=== PATIENT | male | born 1950 | race Caucasian/White ===

== ENCOUNTER 2017-04-07 11:25 | Day surgery (SDC) | payer OTHER ==
[~2017-04-07] VITALS: Ht 167.6 cm; Wt 77.1 kg
[~2017-04-07 11:25] MED LIST: ACET-2267 PO; ASPI-808 PO; ASPI-983 PO; ATOR20TA66 PO; ATOR40TA70 PO; CLOP75TA28 PO; IBP200T PO; IBUP-30 PO; LISI-556 PO; LISI5TAB PO; METO-333 PO
[2017-04-07] MEDS ORDERED: HEParin (CATH LAB) 1,000 ML IV ONE (11:34)
[2017-04-07] MEDS ORDERED: NS IV 1000 ML 1,000 ML ONE (11:34)
[2017-04-07] MEDS ORDERED: NS IV 1000 ML 1,000 ML IV SCH ×3 (11:37→11:45)
[2017-04-07] MEDS ORDERED: BACITRACIN INJECTION 50,000 UNIT, SODIUM CHLORIDE 0.9% IRRIGATIO 500 ML IR ONE ×2 (11:45)
[2017-04-07 11:50] VITALS: BP 139/92
[2017-04-07 12:04] LABS: MEAN PLATELET VOLUME 9.3 FL (7.4-10.4); RED BLOOD COUNT 4.14 10^6/uL (4.35-5.85); RED CELL DISTRIBUTION WIDTH 14.3 % (10.0-14.5); WHITE BLOOD COUNT 8.6 10^3/uL (4.3-11.0)
[2017-04-07] MEDS ORDERED: ATOR40TA70 PO (12:04)
[2017-04-07] MEDS ORDERED: ceFAZolin 1,000 MG (ANCEF) VIAL ONE (12:12)
[2017-04-07 12:17] LABS: PROTHROMBIN TIME PATIENT 12.7 SEC (12.2-14.7)
[2017-04-07 12:27] LABS: ALANINE AMINOTRANSFERASE 20 U/L (0-55); ALBUMIN 4.2 GM/DL (3.2-4.5); ANION GAP 9 MMOL/L (5-14); ASPARTATE AMINO TRANSFERASE 23 U/L (5-34); BILIRUBIN,TOTAL 0.5 MG/DL (0.1-1.0); BLOOD UREA NITROGEN 15 MG/DL (7-18); BUN/CREATININE RATIO 16; CALCIUM 9.3 MG/DL (8.5-10.1); CARBON DIOXIDE 25 MMOL/L (21-32); CHLORIDE 104 MMOL/L (98-107); CHOLESTEROL 179 MG/DL (< 200); CREATININE SERUM 0.94 MG/DL (0.60-1.30); DIRECT LDL 111 MG/DL (1-129); GFR ESTIMATED > 60; GLUCOSE 81 MG/DL (70-105); POTASSIUM 3.9 MMOL/L (3.6-5.0); SODIUM 138 MMOL/L (135-145); TOTAL PROTEIN 7.6 GM/DL (6.4-8.2); TRIGLYCERIDES 234 MG/DL (<150); VLDL CHOLESTEROL 47 MG/DL (5-40)
[2017-04-07] MEDS ORDERED: diphenhydrAMINE 50 MG/ML INJ (BENADRYL) ONE (12:31)
[2017-04-07] MEDS ORDERED: fentaNYL INJECTION 100 MCG/2 ML AMP ONE (12:31)
[2017-04-07] MEDS ORDERED: MIDAZOLAM 5 MG/5 ML (VERSED) VIAL ONE (12:31)
[2017-04-07] MEDS ORDERED: NEO/POLY/BAC (NEOSPORIN) OINT 15 GM TUBE ONE (13:20)
--- NOTE | 2017-04-07 14:15 | Cardiac Procedure Note-CS/ASA ---
Pre-Procedure Note Pre-Op Procedure Note H&P Reviewed The H&P was reviewed, patient examined and no changes noted. Date H&P Reviewed: Apr 07, 2017 Time H&P Reviewed: 13:15 Conscious Sedation Pre-Proced Time Reviewed: 13:15 ASA Class: 3 Airway Mallampati Classification: ([place] appropriate class) I. II. III, IV Lungs Heart ASA score ASA 1: a normal healthy patient ASA 2: a patient with a mild systemic disease (mid diabetes, controlled hypertension, obesity ASA 3: a patient with a severe systemic disease that limits activity (angina , COPD, prior Myocardial infarction) ASA 4: a patient with an incapacitating disease that is a constant threat to life (CHF, renal failure) ASA 5: a moribund patient not expected to survive 24 hrs. (ruptured aneurysm) ASA 6: a declared brain patient whose organs are being harvested. For emergent operations, add the letter E after the classification Grade 2 Sedation Plan: Analgesia, Amnesia, Plan communicated to team members, Discussed options with patient/fam, Discussed risks with patient/fam Note The patient is an appropriate candidate to undergo the planned procedure, sedation, and anesthesia. The patient immediately re-assessed prior to indication. YAHIR JARRELL MD FACP FAC CCDS Apr 07, 2017 14:15
[2017-04-07] MEDS ORDERED: CEFU500T63 PO (14:17)
--- NOTE | 2017-04-07 14:19 | Discharge Inst-Post Device ---
Discharge Inst-Post Device Follow up/Plan F/u with Dr Painting on Monday04/10/17 Heart Healthy Diet Activity as tolerated. Leave dressing on until follow up at the office. YAHIR PAINTING MD FACP FAC CCDS Apr 07, 2017 14:19
[2017-04-07 14:35] VITALS: BP 121/74
--- NOTE | 2017-04-07 14:38 | Diagnostic Imaging Report ---
INDICATION: Status post pulse generator change. Comparison with 06/22/2015. FINDINGS: Portable chest shows the lungs to be well aerated. There is no pneumothorax or pleural effusions. No infiltrates. No pulmonary edema. The heart is not enlarged. ICD pacer is present on the left. Generator appears to be in good position. Leads appear intact. IMPRESSION: Normal-appearing post pulse generator replacement chest. Dictated by: Dictated on workstation # [id number]
[2017-04-07 14:50] VITALS: BP 128/83
[2017-04-07 15:00] VITALS: BP 137/71
[2017-04-07 15:20] VITALS: BP 137/71
--- NOTE | 2017-04-11 10:03 | OPERATIVE REPORT ---
DATE OF SERVICE: 04/07/2017 PREOPERATIVE DIAGNOSIS: Single chamber ICD at elective replacement indicator. POSTOPERATIVE DIAGNOSIS: Single chamber ICD at elective replacement indicator. PROCEDURE: Single chamber ICD generator replacement. ESTIMATED BLOOD LOSS: Less than 5 mL. The patient was brought to the cardiac catheterization laboratory in the fasting state. Informed consent had been obtained. The left prepectoral area is the site of the device implantation. This was prepared and draped in the usual sterile fashion. A guiding fluoroscopic image was taken. 1% Lidocaine was used for local anesthesia. We used sharp and blunt dissection to open the pocket along the previous scar. The pocket was opened. The device was removed and detached from the leads. The leads were retested. A new device was attached. The device and the leads were placed back in the pocket after the pocket had been thoroughly irrigated with an antibiotic solution. The pocket was closed in two layers using 3.0 Vicryl. The right ventricular lead impedance is 570 ohms. R wave amplitude is greater than 20 millivolts. Ventricular capture threshold is 1.7 volts and 0.5 milliseconds. The device was reinterrogated after pocket closure and was found to be functioning normally. The device removed is Medtronic product number [id number] with serial number [id number]. The device implanted is Medtronic model [id number] with serial number [id number]. Job ID: [id number] DocumentID: [id number] Dictated Date: 04/07/2017 14:04:43 Truant Officer Date: 04/11/2017 09:45:49 Dictated By: YAHIR JARRELL MD, MA, FACP, FACC,
== END 2017-04-07 15:20 | disposition home or self-care (01) ==
LOC: CATH 11:25 → ICU 14:35 → CATH 15:20
PROVIDERS: ATTEND Internal Medicine Cardiovascular Disease
DX: Z45.010 Encounter for checking and testing of cardiac pacemaker pulse generator [battery] (principal); I25.5 Ischemic cardiomyopathy; I25.10 Atherosclerotic heart disease of native coronary artery without angina pectoris; I70.213 Atherosclerosis of native arteries of extremities with intermittent claudication, bilateral legs; R06.09 Other forms of dyspnea; I71.4 Abdominal aortic aneurysm, without rupture; E78.5 Hyperlipidemia, unspecified; Z91.19 Patient's noncompliance with other medical treatment and regimen; Z95.1 Presence of aortocoronary bypass graft; Z72.0 Tobacco use; Z79.899 Other long term (current) drug therapy
CPT/HCPCS: 33262; 36415; 71010; 80053; 80061; 85027; 85610; 85730; 87081; 93005

== ENCOUNTER 2019-08-20 07:16 | Day surgery (SDC) | payer MEDICARE ==
[2019-08-20] VITALS (13 sets, daily range): BP systolic 109–140; BP diastolic 63–83
[~2019-08-20] VITALS: Ht 167 cm; Wt 76.0 kg
[~2019-08-20 07:16] MED LIST changes: +CEFU500T63 PO
[2019-08-20] MEDS ORDERED: LIDOCAINE 1% INJ 20 ML 20 ML VIAL ONE (07:30)
[2019-08-20] MEDS ORDERED: HEParin 1000 UNIT/ML (10ML VIAL) FOR BOLUS ONE (07:30)
[2019-08-20] MEDS ORDERED: NS IV 1000 ML 3,000 ML ONE (07:30)
[2019-08-20] MEDS ORDERED: NS IV 1000 ML 1,000 ML IV SCH ×2 (07:30→11:33)
[2019-08-20 07:52] LABS: HEMOGLOBIN 13.4 G/DL (13.3-17.7); MEAN PLATELET VOLUME 9.5 FL (7.4-10.4); RED CELL DISTRIBUTION WIDTH 14.4 % (10.0-14.5); WHITE BLOOD COUNT 6.3 10^3/uL (4.3-11.0)
[2019-08-20] MEDS ORDERED: METO-333 PO (08:07)
[2019-08-20] MEDS ORDERED: CLOP75TA69 PO (08:07)
[2019-08-20] MEDS ORDERED: ASPI-999 PO (08:07)
[2019-08-20] MEDS ORDERED: LISI2.5T PO (08:07)
[2019-08-20 08:10] LABS: INR 0.9 (0.8-1.4); PROTHROMBIN TIME PATIENT 12.9 SEC (12.2-14.7)
[2019-08-20] MEDS ORDERED: IBUP-2055 PO (08:12)
--- NOTE | 2019-08-20 08:13 | NUR ---
SPOKE WITH THE PT (HE HAD HIS HOME MEDS WITH HIM) TO COMPLETE THE MED REC. PT (ALONG WITH HIS ) WERE ABLE TO TELL ME HOW/WHEN HE TAKES EACH MED AND IT MATCHED WITH THE DIRECTIONS ON THE BOTTLES. THE FOLLOWING MEDS WERE FILLED ON 08-16-2019 AT [facility]: ASPIRIN #90/90DS LISINOPRIL #90/90DS CLOPIDOGREL #90/90DS ATORVASTATIN #90/90DS 06-12-2019 METOPROLOL #90/90DS OTC MEDS: TYLENOL PRN IBUPROFEN PRN
[2019-08-20] MEDS ORDERED: FLU QUADRIvalent (5+ YOA) 2019-2020 (AFLURIA) 0.5 ML IM ONE (08:15)
[2019-08-20 08:23] LABS: ALANINE AMINOTRANSFERASE 19 U/L (0-55); ALBUMIN 4.3 GM/DL (3.2-4.5); ALKALINE PHOSPHATASE 69 U/L (40-136); BILIRUBIN,TOTAL 0.3 MG/DL (0.1-1.0); BUN/CREATININE RATIO 14; CALCIUM 9.4 MG/DL (8.5-10.1); CARBON DIOXIDE 22 MMOL/L (21-32); CHLORIDE 106 MMOL/L (98-107); CHOLESTEROL 199 MG/DL (< 200); CREATININE SERUM 0.96 MG/DL (0.60-1.30); GFR ESTIMATED > 60; GLUCOSE 99 MG/DL (70-105); HDL CHOLESTEROL 34 MG/DL (40-60); POTASSIUM 4.4 MMOL/L (3.6-5.0); SODIUM 140 MMOL/L (135-145); TOTAL PROTEIN 7.3 GM/DL (6.4-8.2); TRIGLYCERIDES 207 MG/DL (<150); VLDL CHOLESTEROL 41 MG/DL (5-40)
[2019-08-20] MEDS ORDERED: MIDAZOLAM 5 MG/5 ML (VERSED) VIAL ONE (10:01)
[2019-08-20] MEDS ORDERED: fentaNYL INJECTION 100 MCG/2 ML AMP ONE ×2 (10:01→13:49)
[2019-08-20] MEDS ORDERED: EPTIFIBATIDE BOLUS 20 ML IV ONE (10:50)
[2019-08-20] MEDS ORDERED: NITRO DRIP 25000 MCG/D5W 250 ML IV ONE (10:59)
[2019-08-20] MEDS ORDERED: ASPIRIN 81 MG CHEW (CHILDREN'S ASA) ONE (11:13)
[2019-08-20] MEDS ORDERED: CLOPIDOGREL 75 MG (PLAVIX) TABLET ONE (11:13)
--- NOTE | 2019-08-20 11:33 | Cardiac Procedure Note-CS/ASA ---
Pre-Procedure Note Pre-Op Procedure Note H&P Reviewed The H&P was reviewed, patient examined and no changes noted. Date H&P Reviewed: Aug 20, 2019 Time H&P Reviewed: 10:30 Conscious Sedation Pre-Proced Time 10:30 ASA Score 3 For ASA 3 and 4: Consider anesthesia and medical clearance. Also, for patients with a history of failed moderate sedation consider anesthesia. Airway Lungs Heart ASA score ASA 1: a normal healthy patient ASA 2: a patient with a mild systemic disease (mid diabetes, controlled hypertension, obesity ASA 3: a patient with a severe systemic disease that limits activity (angina, COPD, prior Myocardial infarction) ASA 4: a patient with an incapacitating disease that is a constant threat to life (CHF, renal failure) ASA 5: a moribund patient not expected to survive 24 hrs. (ruptured aneurysm) ASA 6: a declared brain- patient whose organs are being harvested. For emergent operations, add the letter E after the classification Mallampati Classification Grade 2 Sedation Plan Analgesia, Amnesia, Plan communicated to team members, Discussed options with patient/fam, Discussed risks with patient/fam The patient is an appropriate candidate to undergo the planned procedure, sedation, and anesthesia. The patient immediately re-assessed prior to indication. YAHIR JARRELL MD FACP FAC CCDS Aug 20, 2019 11:33 POS
[2019-08-20] MEDS ORDERED: PATIENT MAY USE OWN MEDS, ALL PO SCH (11:45)
[2019-08-20] MEDS ORDERED: NON-FORMULARY MEDICATION 1 EA EA (Acetaminophen (Tylenol Extra Strength) 1,000 MG) PO PRN (11:45)
[2019-08-20] MEDS ORDERED: ACETAMINOPHEN 500 MG TAB (TYLENOL) PO PRN (12:30)
--- NOTE | 2019-08-20 13:32 | CARDIAC CATHETERIZATION ---
DATE OF SERVICE: 08/20/2019 CARDIAC CATHETERIZATION AND CORONARY INTERVENTION REPORT The patient is a 69-year-old man, who is known to have coronary artery disease. He has had stenting of the left anterior descending and the left circumflex artery several years ago. He has been experiencing symptoms consistent with crescendo exertional angina. Cardiac catheterization was carried out today after having obtained an informed consent for cardiac catheterization and possible ad hoc coronary intervention. DESCRIPTION OF PROCEDURE: He was brought to the cardiac catheterization laboratory in a fasting state. Right groin was prepared and draped in the usual sterile fashion. Lidocaine 1% for local anesthesia. Modified Seldinger technique was used to advance a 5-Ukrainian sheath in the right femoral artery, 5-Ukrainian JL4 catheter was used for left coronary angiography and 5-Ukrainian JR4 catheter for right coronary angiography, 5-Ukrainian pigtail catheter was used for left heart catheterization and left ventricular angiography. Subsequently, percutaneous intervention was carried out in the left anterior descending artery, which was exhibiting multiple up to 90% stenosis within a stented segment of the proximal and mid left anterior descending. PERCUTANEOUS INTERVENTION OF THE LEFT ANTERIOR DESCENDING ARTERY: The sheath was exchanged over a wire for a 6-Ukrainian sheath. We used a 6-Ukrainian JL4 guide catheter to engage the left coronary artery. We advanced a BMW wire across the lesion in the proximal and mid left anterior descending and the tip was placed in the distal vessel. We carried out balloon angioplasty within the stented segment of the left anterior descending, which was exhibiting multiple up to 90% stenoses. We used an Emerge 3.0 mm x 20 mm balloon. Balloon inflations were carried out up to 18 atmospheres. Subsequent angiography revealed less than 20% residual stenosis. Flow throughout the vessel is normal. The patient tolerated the procedure well. Angioplasty equipment was removed. Angiography of the right femoral artery had been carried out through the sheath at the beginning of the procedure. At the end of the procedure, the sheath was sutured in place and the patient was transferred to the floor for manual sheath removal. The angiogram through the sheath does exhibit probable chronic occlusion of the right superficial femoral at its ostium. HEMODYNAMICS: Left ventricular end-diastolic pressure following coronary angiography was 25 mmHg. There is no significant pressure gradient on pullback across the aortic valve. Ascending aortic pressure was 135/70 with a mean of 98 mmHg. CORONARY ANGIOGRAPHY: Diffuse coronary calcification is seen. Left main coronary artery does not exhibit significant obstructive disease. There is a long stented segment of the proximal and mid left anterior descending. This is known to be Taxus 2.75 x 28 mm stent within which was later placed a Promus 2.25 x 12 mm stent for in-stent restenosis. These procedures were carried out several years ago. Within the standard segment, there was 90% stenosis through which successful balloon angioplasty was carried out, as described above, with reduction of stenosis to less than 20% residual. The distal edge of the left anterior descending artery has multiple plaques of up to approximately 30% to 40%. The left circumflex artery consists mainly of the first obtuse marginal branch and this contains a patent stent in its proximal portion. The stent is known to be Promus 2.25 x 16 mm stent that was placed several years ago. The right coronary artery is dominant and has mild diffuse plaque. LEFT VENTRICULAR ANGIOGRAPHY: Left ventricular angiography was carried out in the right anterior oblique projection. The global left ventricular systolic function is markedly impaired. There is an obvious anterobasal and anterolateral hypokinesis. There is posterobasal, diaphragmatic and apical akinesis. CONCLUSIONS: 1. Coronary artery disease primarily consisting of 90% stenoses within a stented segment of the proximal and mid left anterior descending to which successful balloon angioplasty was carried out with the reduction of stenosis to less than 20%. 2. Patent stent is seen in the proximal portion of the left circumflex. The right coronary artery is dominant and has mild diffuse disease. 3. Marked impairment of global left ventricular systolic function with an ejection fraction of approximately 15% and with posterobasal diaphragmatic and apical akinesis. 4. Elevated left ventricular end-diastolic pressure. DISCUSSION AND RECOMMENDATIONS: Dual antiplatelet therapy is being continued. Treatment for chronic ischemic cardiomyopathy is being continued. He has been hospitalized for observation after today's interventional procedure. Risk factor modification has been reviewed with him. Job ID: [id number] DocumentID: [id number] Dictated Date: 08/20/2019 11:28:51 Office Cleaner Date: 08/20/2019 13:31:10 Dictated By: YAHIR JARRELL MD, MA, FACP, FACC, MTDD
[2019-08-20] MEDS ORDERED: ATROPINE INJ 0.4 MG/ML SDV ONE (13:49)
[2019-08-20] MEDS ORDERED: meTOprolol TARTRATE 25 MG (LOPRESSOR) TABLET PO SCH ×2 (21:00)
[2019-08-21 01:13] VITALS: BP 113/64
[2019-08-21 03:32] LABS: HEMOGLOBIN 11.9 G/DL (13.3-17.7); MEAN PLATELET VOLUME 9.6 FL (7.4-10.4); RED CELL DISTRIBUTION WIDTH 14.8 % (10.0-14.5); WHITE BLOOD COUNT 5.5 10^3/uL (4.3-11.0)
[2019-08-21 03:54] LABS: BUN/CREATININE RATIO 14; CALCIUM 8.5 MG/DL (8.5-10.1); CARBON DIOXIDE 19 MMOL/L (21-32); CHLORIDE 111 MMOL/L (98-107); GFR ESTIMATED > 60; GLUCOSE 101 MG/DL (70-105); POTASSIUM 4.2 MMOL/L (3.6-5.0); SODIUM 140 MMOL/L (135-145)
[2019-08-21 05:44] VITALS: BP 105/86
[2019-08-21 08:00] VITALS: BP 117/55
--- NOTE | 2019-08-21 08:36 | NUR ---
Pt chooses to take his morning medications when he gets home. States that's easier for him so he knows what he has taken for the day.
--- NOTE | 2019-08-21 08:41 | Discharge Inst-Cardiology ---
Discharge Inst-Cardiac Discharge Medications Continued Medications: Acetaminophen (Tylenol Extra Strength) 500 Mg Tablet 1000 MG PO Q6H PRN for PAIN TAKES 2 (500MG) TABLETS Aspirin (Aspirin) 81 Mg Tab.chew 81 MG PO DAILY, TAB Atorvastatin Calcium (Atorvastatin Calcium) 40 Mg Tablet 40 MG PO DAILY, TAB Clopidogrel Bisulfate (Plavix) 75 Mg Tablet 75 MG PO DAILY, TAB Lisinopril (Lisinopril) 2.5 Mg Tablet 2.5 MG PO DAILY, TAB Metoprolol Tartrate (Metoprolol Tartrate) 25 Mg Tablet 12.5 MG PO BID, TAB TAKES HALF OF A 25MG TAB TO EQUAL 12.5MG TWICE DAILY Discontinued Medications: Ibuprofen (Ibuprofen) 200 Mg Tablet 400 MG PO Q8H PRN for PAIN-MILD (1-4), TAB Patient Instructions Patient Instructions: F/u with Dr Painting in 6 weeks Orders-Post D/C & Referrals Pneu Vac Indicated: Yes YAHIR PAINTING MD FACP FAC CCDS Aug 21, 2019 08:41 POS
--- NOTE | 2019-08-21 08:42 | Discharge Inst-Post CATH ---
Discharge Inst-CATH/EP Post Cardiac Cath/EP D/C Inst Follow Up/Plan F/u with Dr Painting in 6 weeks No smoking ACTIVITY * Go Home directly and rest. * Limit activity of the leg (or wrist if it was used) for 7 days including aerobics, swimming, jogging, bicycling, etc. * Restrict stair-climbing for 7 days if possible, if not, climb up with your non-cath leg, then bring together on the same step. * Avoid lifting, pushing, pulling or excessive movement of the affected extremity for 7 days. * Customary sexual activity may be resumed after 2 days-use caution not to use a position that strains or causes pain to the affected extremity. * No driving for 24 hours. * NO SMOKING. * Avoid straining for bowel movements for 7 days. * Gentle walking on level ground is allowed. * Returning to work will depend on the type of procedure and the results. Your doctor will discuss this with you. CALL YOUR DOCTOR FOR ANY OF THE FOLLOWING: *If bleeding from the puncture site occurs- Apply gentle pressure to site with clean cloth and call your doctor or EMS. * If a knot or lump forms under the skin, increases in size, or causes pain. * If bruising appears to be worsening or moving further down your leg instead of disappearing. * Temperature above 101 F. CARE OF YOUR GROIN INCISION; * Bruising or purple discoloration of the skin near the puncture site is common. * You may shower only, no bathtub bathing for 5 days. Be careful to avoid slipping as your leg may feel stiff. * If a closure device was used on your femoral artery, please see the attached guide regarding care of the device and your leg. * Leave dressing on FOR 24 hours. CARE OF YOUR WRIST INCISION; * Bruising or purple discoloration of the skin near the puncture site is common. * You may shower. * DO NOT submerge wrist. * Leave dressing on FOR 24 hours. Y[address]IR PAINTING MD [facility] CCDS Aug 21, 2019 08:42 POS
--- NOTE | 2019-08-21 08:52 | Progress Note - Cardiology ---
Cardiology SOAP Progress Note Subjective: No cp or palp or syncope or groin discomfort No shortness of breath at rest No leg discoloration or discomfort. Does have chronic leg discomfort with mild to mod exertion that has not changed in the recent past Feels well and wishes to go home Objective: I&O/Vital Signs 08/21/19 08/21/19 08/21/19 08/21/19 00:00 00:51 01:13 05:44 Temp 37.6 37.0 Pulse 64 60 86 Resp 16 18 B/P (MAP) 113/64 (80) 105/86 (92) Pulse Ox 97 96 O2 Delivery Room Air Room Air 08/21/19 07:00 Pulse 63 Weight (Pounds): 170 Weight (Ounces): 0.0 Weight (Calculated Kilograms): 77.943892 Groin site without hematoma: Yes Condition: other (No leg discoloration or any signs of ischemia, pulses chronically detectable only with Doppler) Bruising: mild bruising Constitutional: AAO x 3, well-developed, well-nourished Respiratory: No accessory muscle use; other (good bilat air entry, prolonged e xp phase) Cardiovascular: regular rate-rhythm, S1 and S2, systolic murmur (faint DEXTER at card base) Gastrointestional: No tender; soft; No guarding, No rebound; audible bowel sounds Extremities: No clubbing, No cyanosis, No significant edema Neurologic/Psychiatric: oriented x 3, other (moves all limbs equally) Skin: No rash on exposed areas, No ulcerations on exposed areas Results/Procedures: Labs Laboratory Tests 08/20/19 12:55: Activated Partial Thromboplast Time 63H 08/21/19 03:05: White Blood Count 5.5, Red Blood Count 3.59L, Hemoglobin 11.9L, Hematocrit 36L, Mean Corpuscular Volume 99, Mean Corpuscular Hemoglobin 33, Mean Corpuscular Hemoglobin Concent 33, Red Cell Distribution Width 14.8H, Platelet Count 168, Mean Platelet Volume 9.6, Sodium Level 140, Potassium Level 4.2, Chloride Level 111H, Carbon Dioxide Level 19L, Anion Gap 10, Blood Urea Nitrogen 14, Creatinine 1.00, Estimat Glomerular Filtration Rate > 60, BUN/Creatinine Ratio 14, Glucose Level 101, Calcium Level 8.5 Laboratory Tests 08/20/19 07:40 08/21/19 03:05 A/P: Assessment: Angina pectoris, resolved after LAD intervention on 08/20/19 CAD. Last card cath on 08/20/19 showed coronary artery disease primarily consisting of 90% stenoses within a stented segment (known to be Taxus 2.75x28 and Promus 2.25x12) of the proximal and mid left anterior descending to which successful balloon angioplasty was carried out with a 3 mm balloon with reduction of stenosis to less than 20%; patent stent in the proximal portion of the left circumflex (known to be Promus 2.25x16). The right coronary artery is dominant and has mild diffuse disease, marked impairment of global left scott tricular systolic function with an ejection fraction of approximately 15% and with posterobasal diaphragmatic and apical akinesis, elevated left ventricular end-diastolic pressure Ischemic cm with EF approx 15% per cardiac cath of 08-20-19 Echocardiogram of June 2015 showed LVEF 35%. Distal septal and apical akinesis. Mild MR and TR. No evidence of significant valvular stenosis. PASP approx 45mmHg. S/p ICD placement by Dr Lynn in 2007 for SCD prophylaxis - which has reached SUSANA on interrogation carried out on 04-05-2017. Pulse gen change on 04/07/17. Device functioning normally on interrogation of 10/19/17 Carotid u/s of July 2016 showed approx 50% R ICA stenosis; less than 40% L ICA stenosis Chronic continuing tobacco use - cessation advised HLD - statin therapy Bilateral leg claudication, more on right. Incidentally noted, chronic, total occlusion of proximal R SFA at time of card cath of 08/20/19 PAD for which he refuses any further w/u or treatment. 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 He refuses (has been refusing for years). States will think about it * We had a long and detailed discussion regarding abstinence from tobacco and the importance or med compliance * We again advised f/u for device interrogation * He understands all of the above and states will try to comply YAHIR JARRELL MD FACP FAC CCDS Aug 21, 2019 08:52 POS
[2019-08-21] MEDS ORDERED: NON-FORMULARY MEDICATION 1 EA EA (Lisinopril 2.5 MG) PO SCH (09:00)
[2019-08-21] MEDS ORDERED: lisINopril 5 MG (PRINIVIL) TABLET PO SCH (09:00)
[2019-08-21] MEDS ORDERED: LISINOPRIL 2.5 MG TABLET PO SCH (09:00)
[2019-08-21] MEDS ORDERED: CLOPIDOGREL 75 MG (PLAVIX) TABLET PO SCH (09:00)
[2019-08-21] MEDS ORDERED: ASPIRIN 81 MG CHEW (CHILDREN'S ASA) PO SCH (09:00)
== END 2019-08-21 09:45 | disposition home or self-care (01) ==
LOC: CATH 07:16 → ICU 11:48 → CATH 08-21 09:45
PROVIDERS: ATTEND Internal Medicine Cardiovascular Disease
DX: I25.10 Atherosclerotic heart disease of native coronary artery without angina pectoris (principal); I70.213 Atherosclerosis of native arteries of extremities with intermittent claudication, bilateral legs; I25.5 Ischemic cardiomyopathy; I77.9 Disorder of arteries and arterioles, unspecified; I73.9 Peripheral vascular disease, unspecified; I25.2 Old myocardial infarction; E78.00 Pure hypercholesterolemia, unspecified; F17.210 Nicotine dependence, cigarettes, uncomplicated; Z95.1 Presence of aortocoronary bypass graft; Z91.14 Patient's other noncompliance with medication regimen; Z79.02 Long term (current) use of antithrombotics/antiplatelets; Z79.82 Long term (current) use of aspirin; Z79.899 Other long term (current) drug therapy; Z82.49 Family history of ischemic heart disease and other diseases of the circulatory system
CPT/HCPCS: 36415; 80048; 80053; 80061; 85027; 85610; 85730; 87081; 93005; 93458

== ENCOUNTER → 2021-02-25 | Outpatient (CLI) | payer MEDICARE ==
[~2021-02-25] MED LIST changes: +ASPI-1238 PO; -ASPI-983 PO; +ASPI-999 PO; +CLOP75TA69 PO; +IBUP-2473 PO; -LISI-556 PO; +LISI-729 PO; +LISI2.5T PO
== END ==
LOC: CARD 12:06
PROVIDERS: ATTEND Nurse Practitioner Family
DX: I51.7 Cardiomegaly (principal); I34.0 Nonrheumatic mitral (valve) insufficiency
CPT/HCPCS: 93306

== ENCOUNTER → 2021-03-02 | Outpatient (CLI) | payer MEDICARE ==
[~2021-03-02] VITALS: Ht 167 cm; Wt 77.0 kg
[~2021-03-02] MED LIST changes: +CATHETER FLUSH 10 ML SYR IV PRN; +REGADENOSON 0.4 MG/5 ML SYR (LEXISCAN) IV ONE
[2021-03-02 09:28] VITALS: BP 158/88
--- NOTE | 2021-03-04 10:57 | STRESS TEST ---
DATE OF SERVICE: 03/02/2021 RESTING AND POST REGADENOSON TECHNETIUM-99M TETROFOSMIN SPECT CT IMAGING ORDERING PHYSICIAN: Elisabeth Ayala APRN PRIMARY PHYSICIAN: Dr. Allred. CLINICAL DIAGNOSIS: Shortness of breath. Baseline images were carried out after injection of 10.97 mCi of technetium-99m Tetrofosmin. This was followed by 0.4 mg Regadenoson and 31.5 mCi of technetium-99m Tetrofosmin for stress imaging. The electrocardiogram showed sinus rhythm with diffuse, nonspecific ST and T-wave abnormality. There is evidence of anteroseptal myocardial infarction and lateral wall myocardial infarction on the electrocardiogram. The electrocardiogram did not change significantly with regadenoson infusion. He noted some shortness of breath and shooting discomfort in the chest, which came with the regadenoson infusion and resolved in less than a minute. Review of images at rest and following stress indicates a predominantly fixed tarun-apical and inferolateral perfusion defect. Gated images show tarun-apical and inferolateral akinesis and global hypokinesis. Left ventricular ejection fraction is calculated to be 21%. Left ventricular end diastolic volume is 246 mL. TID is absent (1.01). CONCLUSIONS: 1. Dilated ischemic cardiomyopathy with left ventricular ejection fraction of 21%. 2. Tarun-apical and inferolateral myocardial infarction with minimal boin-infarct ischemia. 3. Marked cardiomegaly. 4. Inferolateral and tarun-apical akinesis and global hypokinesis. Job ID: [id number] DocumentID: [id number] Dictated Date: 03/04/2021 09:48:20 Digital Solutions Architect Date: 03/04/2021 10:57:18 Dictated By: YAHIR JARRELL MD, MA, FACP, FACC,
== END ==
LOC: CARD 08:00
PROVIDERS: ATTEND Nurse Practitioner Family
DX: R06.09 Other forms of dyspnea (principal)
CPT/HCPCS: 78452; 93017; A9502

== ENCOUNTER → 2022-06-14 | Outpatient (CLI) | payer MEDICARE ==
[~2022-06-14] MED LIST changes: -CATHETER FLUSH 10 ML SYR IV PRN; -LISI-729 PO; -LISI2.5T PO; +LISI2.5T13 PO; +LISI5TAB20 PO; -REGADENOSON 0.4 MG/5 ML SYR (LEXISCAN) IV ONE
--- NOTE | 2022-06-14 19:30 | Diagnostic Imaging Report ---
INDICATION: Abdominal aortic aneurysm. The proximal abdominal aorta measures 1.6 cm AP x 2.7 cm transverse. Midabdominal aorta measures 3.5 cm AP x 4.0 cm transverse. The distal abdominal aorta measures 4.3 cm AP x 4.6 cm transverse. Right iliac measures 1.1 cm in diameter and the left iliac measures 1.3 cm in diameter. IMPRESSION: Abdominal aortic aneurysm, increased in size when compared with the prior CT angiogram of the abdomen and pelvis performed on 09/09/2015. This now measures approximately 4.3 cm AP diameter compared with 3.2 cm on prior exam. Dictated by: Dictated on workstation # [id number]
== END ==
LOC: RAD 09:06
PROVIDERS: ATTEND Internal Medicine Cardiovascular Disease
DX: I71.40 Abdominal aortic aneurysm, without rupture, unspecified (principal); I50.22 Chronic systolic (congestive) heart failure
CPT/HCPCS: 76775; C8929; 93306

== ENCOUNTER 2022-08-27 23:24 | Inpatient (IN) | payer MEDICARE ==
[~2022-08-27] VITALS: Ht 167.7 cm; Wt 69.4 kg
[~2022-08-27 23:24] MED LIST changes: +CLOP-31 PO; -CLOP75TA69 PO
[2022-08-27 23:38] LABS: BASOPHILS % (AUTO) 0 % (0-10); EOSINOPHILS # (AUTO) 0.2 10^3/uL (0.0-0.3); EOSINOPHILS % (AUTO) 2 % (0-10); HEMATOCRIT 35 % (40-54); HEMOGLOBIN 11.8 g/dL (13.3-17.7); LYMPHOCYTES # (AUTO) 2.3 10^3/uL (1.0-4.0); LYMPHOCYTES % (AUTO) 28 % (12-44); MEAN CORPUSCULAR HEMOGLOBIN 34 pg (25-34); MEAN CORPUSCULAR HGB CONC 33 g/dL (32-36); MEAN CORPUSCULAR VOLUME 101 fL (80-99); MEAN PLATELET VOLUME 9.4 fL (9.0-12.2); MONOCYTES # (AUTO) 0.5 10^3/uL (0.0-1.0); MONOCYTES % (AUTO) 6 % (0-12); NEUTROPHILS # (AUTO) 5.5 10^3/uL (1.8-7.8); NEUTROPHILS % (AUTO) 64 % (42-75); PLATELET COUNT 160 10^3/uL (130-400); WHITE BLOOD COUNT 8.5 10^3/uL (4.3-11.0)
--- NOTE | 2022-08-27 23:44 | ED Respiratory ---
General Chief Complaint: Respiratory Problems Stated Complaint: SOB Source: patient (POOR HISTORIAN) History of Present Illness Date Seen by Provider: Aug 27, 2022 Time Seen by Provider: 23:26 Initial Comments PT ARRIVES VIA [facility] FROM HOME C/O SHORTNESS OF BREATH X 4-5 DAYS C/O NON-PRODUCTIVE COUGH X 4-5 DAYS + SWEATS TONIGHT--DID NOT CHECK TEMP DOES NOT THINK HE HAS HAD FEVER NO CHEST PAIN NO SWELLING IN LEGS/FEET OR PAIN IN CALVES NO NAUSEA/VOMITING NO PALPITATIONS NO DIZZINESS OR SYNCOPE PT DENIES ANY HISTORY OF COPD OR HOME O2 OR INHALER OR NEBULIZER USE PT SMOKES 1 PPD PT HAD HAD "A COUPLE " OF DRINKS TODAY DENIES DRUG USE PT HAS HISTORY OF CAD WITH STENTS--HE DOES NOT KNOW HOW MANY STENTS HE HAS HAD. HE ALSO HAS HISTORY OF CARDIOMYOPATHY WITH DEFIBRILLATOR IN PLACE. HE IS NOT COVID OR FLU VACCINATED EMS REPORT O2 SAT 77% ON THEIR ARRIVAL AT THE SCENE, THEY GAVE 20 MG DEXAMETHASONE AND DUONEB NEBULIZER TREATMENT PRIOR TO ARRIVAL PCP: DR. MONTERO AVID EDITOR: DR. JARRELL Allergies and Home Medications Allergies Coded Allergies: NKANo Known Allergies (Verified Allergy, Unknown, 07/15/07) Uncoded Allergies: NKDA (Allergy, Mild, 07/15/07) Patient Home Medication List Home Medication List Reviewed: Yes Acetaminophen (Tylenol Extra Strength) 500 Mg Tablet, 1,000 MG PO Q6H PRN for PAIN, (Reported) Entered as Reported by: ASHISH HARTMAN on 06/22/15 1359 Albuterol Sulfate (Ventolin Hfa) 90 Mcg Hfa.aer.ad, 1 INHALER INH Q2HR PRN for DYSPNEA Prescribed by: STEVEN MONTERO on 08/29/22 0852 Amoxicillin (Amoxicillin) 500 Mg Tablet, 500 MG PO TID Prescribed by: STEVEN MONTERO on 08/29/22 0848 Aspirin (Aspirin) 81 Mg Tab.chew, 81 MG PO DAILY, (Reported) Entered as Reported by: MARCI MURRY on 08/20/19 0807 Atorvastatin Calcium (Atorvastatin Calcium) 40 Mg Tablet, 40 MG PO DAILY, (Reported) Entered as Reported by: JERRELL HOLLEY on 04/07/17 1204 Clopidogrel Bisulfate (Plavix) 75 Mg Tablet, 75 MG PO DAILY, (Reported) Entered as Reported by: MARCI MURRY on 08/20/19806 Furosemide (Furosemide) 40 Mg Tablet, 80 MG PO DAILY Prescribed by: STEVEN MONTERO on 08/29/22847 Lactobacillus Acidophilus (Acidophilus) 1 Each Capsule, 1 EACH PO BID Prescribed by: STEVEN MONTERO on 08/29/22847 Lisinopril (Lisinopril) 2.5 Mg Tablet, 2.5 MG PO DAILY, (Reported) Entered as Reported by: MARCI MURRY on 08/20/19806 Metoprolol Tartrate (Metoprolol Tartrate) 25 Mg Tablet, 12.5 MG PO BID, (Reported) Entered as Reported by: MARCI MURRY on 08/20/19806 Potassium Chloride (Potassium Chloride) 10 Meq Tab.er.prt, 10 MEQ PO DAILY Prescribed by: STEVEN MONTERO on 08/29/22847 Prednisone (Prednisone) 20 Mg Tab, 40 MG PO DAILY@0700 Prescribed by: STEVEN MONTERO on 08/29/22847 Spironolactone (Spironolactone) 25 Mg Tablet, 25 MG PO DAILY Prescribed by: STEVEN MONTERO on 08/29/22847 Review of Systems Review of Systems Constitutional: see HPI, diaphoresis EENTM: no symptoms reported Respiratory: see HPI, cough, short of breath Cardiovascular: no symptoms reported Gastrointestinal: no symptoms reported Genitourinary: no symptoms reported Musculoskeletal: no symptoms reported Skin: no symptoms reported Psychiatric/Neurological: No Symptoms Reported Hematologic/Lymphatic: No Symptoms Reported Immunological/Allergic: no symptoms reported Past Gnvrezu-Nfvivz-Liffzj Hx Patient Social History Tobacco Use?: Yes Tobacco type used: Cigarettes Smoking Status: Current Everyday Smoker Smokeless Tobacco Frequency: Never a User Use of E-Cig and/or Vaping [place]: Never a User Substance use?: No Alcohol Use?: Yes Alcohol type: Hard Liquor Alcohol Frequency: Daily Immunizations Up To Date Tetanus Booster (TDap): More than 5yrs Past Medical History Surgeries: Yes Cardiac, Coronary Stent, Defibrillator, Orthopedic Respiratory: No Currently Using CPAP: No Currently Using BIPAP: No Cardiac: Yes (EF 15% ON CATH 08/2019; DEFIBRILLATOR;STENTS/ANGIOPLASTY;NSTEMI 2014;) Cardiomyopathy, Coronary Artery Disease, Heart Attack, High Cholesterol, Hypertension Neurological: No Reproductive Disorders: No Sexually Transmitted Disease: No HIV/AIDS: No Genitourinary: No Gastrointestinal: No Musculoskeletal: No Endocrine: No HEENT: No Loss of Vision: Denies Hearing Impairment: Hard of Hearing Cancer: No Psychosocial: No Integumentary: No Blood Disorders: No Adverse Reaction/Blood Tranf: No Family Medical History Cardiovascular disease 19 FATHER 19 MOTHER G8 BROTHER Completed stroke 19 FATHER DEFIBRILLLATOR REPLACED IN MARCH 2017 CARDIAC CATH 08/21/[address] JARRELL: CONCLUSIONS: 1. Coronary artery disease primarily consisting of 90% stenoses within a stented segment of the proximal and mid left anterior descending to which successful balloon angioplasty was carried out with the reduction of stenosis to less than 20%. 2. Patent stent is seen in the proximal portion of the left circumflex. The right coronary artery is dominant and has mild diffuse disease. 3. Marked impairment of global left ventricular systolic function with an ejection fraction of approximately 15% and with posterobasal diaphragmatic and apical akinesis. 4. Elevated left ventricular end-diastolic pressure. DISCUSSION AND RECOMMENDATIONS: Dual antiplatelet therapy is being continued. Treatment for chronic ischemic cardiomyopathy is being continued. He has been hospitalized for observation after today's interventional procedure. Risk factor modification has been reviewed with him. Physical Exam Vital Signs - First Documented Capillary Refill : Height: 5'6.00" Weight: 170lbs. 0.0oz. 77.353573oc; 27.60 BMI Method:Stated General Appearance: WD/WN, no apparent distress, other (ANXIOUS, CONSTANT MOVEMENTS; REEKS OF CIGARETTES AND ALCOHOL, CLOTHING WITH MULTIPLE CIGARETTE ROSS. ) HEENT: PERRL/EOMI Neck: normal inspection Respiratory: wheezing (MILD END EXPIRATORY WHEEZING BILATERALLY), other (MILDLY DYSPNEIC) Cardiovascular: regular rate, rhythm, no murmur Gastrointestinal: non tender, soft Extremities: normal inspection, no pedal edema, no calf tenderness, normal capillary refill Neurologic/Psychiatric: associate director of nursing II-XII nml as tested, no motor/sensory deficits, alert, oriented x 3 Skin: normal color, warm/dry Focused Exam Sepsis Stage: Sepsis Possible Source: Pulmonary Lactate Level 08/27/22 23:54: Lactic Acid Level 0.99 Time of Focused Exam: 00:01 Respiratory: Normal Breath Sounds, No Accessory Muscle Use, No Respiratory Distress Cardiovascular: Regular Rate, Rhythm Capillary Refill: Less Than 3 Seconds Skin: normal color, warm/dry Lactic Acid Level Laboratory Tests Test 08/27/22 23:54 Lactic Acid Level 0.99 MMOL/L (0.50-2.00) Within 3hrs of presentation: Admin fluids, Admin ABX, Blood cultures prior to ABX's, Focus exam, Lactate level Progress/Results/Core Measures Suspected Sepsis SIRS Temperature: Pulse: Respiratory Rate: Laboratory Tests 08/27/22 23:30: White Blood Count 8.5 Blood Pressure / Mean: 08/27/22 23:54: Lactic Acid Level 0.99 Laboratory Tests 08/27/22 23:30: Creatinine 1.50H, INR Comment 1.0, Platelet Count 160, Total Bilirubin 0.4 Results/Orders Lab Results Laboratory Tests Test 08/27/22 23:30 08/27/22 23:46 08/27/22 23:54 Range/Units White Blood Count 8.5 4.3-11.0 10^3/uL Red Blood Count 3.49 L 4.30-5.52 10^6/uL Hemoglobin 11.8 L 13.3-17.7 g/dL Hematocrit 35 L 40-54 % Mean Corpuscular Volume 101 H 80-99 fL Mean Corpuscular Hemoglobin 34 25-34 pg Mean Corpuscular Hemoglobin Concent 33 32-36 g/dL Red Cell Distribution Width 15.0 H 10.0-14.5 % Platelet Count 160 130-400 10^3/uL Mean Platelet Volume 9.4 9.0-12.2 fL Immature Granulocyte % (Auto) 0 % Neutrophils (%) (Auto) 64 42-75 % Lymphocytes (%) (Auto) 28 12-44 % Monocytes (%) (Auto) 6 0-12 % Eosinophils (%) (Auto) 2 0-10 % Basophils (%) (Auto) 0 0-10 % Neutrophils # (Auto) 5.5 1.8-7.8 10^3/uL Lymphocytes # (Auto) 2.3 1.0-4.0 10^3/uL Monocytes # (Auto) 0.5 0.0-1.0 10^3/uL Eosinophils # (Auto) 0.2 0.0-0.3 10^3/uL Basophils # (Auto) 0.0 0.0-0.1 10^3/uL Immature Granulocyte # (Auto) 0.0 0.0-0.1 10^3/uL Erythrocyte Sedimentation Rate 35 H 0-30 MM/HR Prothrombin Time 14.0 12.2-14.7 SEC INR Comment 1.0 0.8-1.4 Activated Partial Thromboplast Time 30 24-35 SEC D-Dimer 1.86 H 0.00-0.49 UG/ML Sodium Level 140 135-145 MMOL/L Potassium Level 4.7 3.6-5.0 MMOL/L Chloride Level 108 H 98-107 MMOL/L Carbon Dioxide Level 22 21-32 MMOL/L Anion Gap 10 5-14 MMOL/L Blood Urea Nitrogen 19 H 7-18 MG/DL Creatinine 1.50 H 0.60-1.30 MG/DL Estimat Glomerular Filtration Rate 50 BUN/Creatinine Ratio 13 Glucose Level 101 70-105 MG/DL Calcium Level 9.5 8.5-10.1 MG/DL Corrected Calcium 9.3 8.5-10.1 MG/DL Magnesium Level 2.0 1.6-2.4 MG/DL Total Bilirubin 0.4 0.1-1.0 MG/DL Aspartate Amino Transf (AST/SGOT) 23 5-34 U/L Alanine Aminotransferase (ALT/SGPT) 14 0-55 U/L Alkaline Phosphatase 71 40-136 U/L Total Creatine Kinase 400 H 30-200 U/L Creatine Kinase MB 6.6 *H <6.6 NG/ML Myoglobin 158.3 H 10.0-92.0 NG/ML Troponin I 0.052 H <0.028 NG/ML C-Reactive Protein High Sensitivity 0.51 H 0.00-0.50 MG/DL B-Type Natriuretic Peptide 326.5 H <100.0 PG/ML Total Protein 7.5 6.4-8.2 GM/DL Albumin 4.2 3.2-4.5 GM/DL Procalcitonin 0.04 <0.10 NG/ML Serum Alcohol < 10 <10 MG/DL Influenza Type A (RT-PCR) Not Detected Not Detecte Influenza Type B (RT-PCR) Not Detected Not Detecte SARS-CoV-2 RNA (RT-PCR) Not Detected Not Detecte Urine Color YELLOW Urine Clarity CLEAR Urine pH 5.0 5-9 Urine Specific [place] >=1.030 1.016-1.022 Urine Protein 1+ H NEGATIVE Urine Glucose (UA) NEGATIVE NEGATIVE Urine Ketones NEGATIVE NEGATIVE Urine Nitrite NEGATIVE NEGATIVE Urine Bilirubin NEGATIVE NEGATIVE Urine Urobilinogen 0.2 < = 1.0 MG/DL Urine Leukocyte Esterase NEGATIVE NEGATIVE Urine RBC (Auto) NEGATIVE NEGATIVE Urine RBC NONE /HPF Urine WBC 0-2 /HPF Urine Squamous Epithelial Cells 0-2 /HPF Urine Crystals NONE /LPF Urine Bacteria FEW H /HPF Urine Casts PRESENT /LPF Urine Hyaline Casts 10-25 H /LPF Urine Mucus SMALL H /LPF Urine Culture Indicated CULTURE PENDING Blood Gas Puncture Site RIGHT RADIAL Blood Gas Patient Temperature 96.1 Arterial Blood pH 7.38 7.37-7.43 Arterial Blood Partial Pressure CO2 37 35-45 MMHG Arterial Blood Partial Pressure O2 70 L 79-93 MMHG Arterial Blood HCO3 22 L 23-27 MMOL/L Arterial Blood Total CO2 23.2 21.0-31.0 MMOL/L Arterial Blood Oxygen Saturation 95 94-100 % Arterial Blood Base Excess -2.7 L -2.5-2.5 MMOL/L Zach Test YES-POS Blood Gas Ventilator Setting NO Blood Gas Inspired Oxygen 2L Urine Opiates Screen NEGATIVE NEGATIVE Urine Oxycodone Screen NEGATIVE NEGATIVE Urine Methadone Screen NEGATIVE NEGATIVE Urine Propoxyphene Screen NEGATIVE NEGATIVE Urine Barbiturates Screen NEGATIVE NEGATIVE Ur Tricyclic Antidepressants Screen NEGATIVE NEGATIVE Urine Phencyclidine Screen NEGATIVE NEGATIVE Urine Amphetamines Screen NEGATIVE NEGATIVE Urine Methamphetamines Screen NEGATIVE NEGATIVE Urine Benzodiazepines Screen NEGATIVE NEGATIVE Urine Cocaine Screen NEGATIVE NEGATIVE Urine Cannabinoids Screen NEGATIVE NEGATIVE Lactic Acid Level 0.99 0.50-2.00 MMOL/L Micro Results Microbiology 08/28/22 Blood Culture - Preliminary, Resulted No growth 08/27/22 Urine Culture - Final, Complete NO GROWTH 08/27/22 Blood Culture - Preliminary, Resulted No growth My Orders Orders - ALESSIA SUMMERS DO Ed Iv/Invasive Line Start (08/27/22 23:27) Ekg Tracing (08/27/22 23:27) O2 (08/27/22 23:27) Monitor-Rhythm Ecg Trace Only (08/27/22 23:27) Arterial Blood Gas (08/27/22 23:27) Bnp Mateo (08/27/22 23:27) Cbc With Automated Diff (08/27/22 23:27) Comprehensive Metabolic Panel (08/27/22 23:27) Creatine Kinase (08/27/22 23:27) Creatine Kinase Mb (08/27/22 23:27) Hs C Reactive Protein (08/27/22:) Fibrin Degradation Products (08/27/22:) Lactic Acid Analyzer (08/27/22) Magnesium (08/27/22:) Procalcitonin (Pct) (08/27/22:) Protime With Inr (08/27/22:) Partial Thromboplastin Time (08/27/22:) Ua Culture If Indicated (08/27/22:) Blood Culture (08/27/22) Erythrocyte Sedimentation Rate (08/27/22:) Myoglobin Serum (08/27/22:) Troponin I Mateo (08/27/22:) Chest 1 View, Ap/Pa Only (08/27/22:) Covid 19 Inhouse Test (08/27/22:) Influenza A And B By Pcr (08/27/22:) Isolation Central Supply Req (08/27/22:) Urine Culture (08/27/22:) Ed Iv/Invasive Line Start (08/27/22 23:) Vital Signs Adult Sepsis Patie Q15M (08/27/22 23:27) Remove Rings In Anticipation O (08/27/22 23:) Alcohol (08/27/22 23:38) Drug Screen Stat (Urine) (08/27/22 23:38) Furosemide Injection (Lasix Injection) (08/28/22 00:30) Enoxaparin Injection (Lovenox Injection) (08/28/22 00:30) Vital Signs/I&O 08/27/22 08/27/22 08/27/22 23:24 23:24 23:24 Temp 35.7 Pulse 107 Resp 22 B/P (MAP) 131/83 (99) Pulse Ox 95 O2 Delivery Nasal Cannula Nasal Cannula Nasal Cannula O2 Flow Rate 2.00 2.00 2.00 Capillary Refill : Progress Note : Progress Note PLACED IN ISOLATION ROOM PPE WORN COVID AND FLU TESTING DONE. SEPSIS PROTOCOL INITIATED BASED ON SYMPTOMS GIVEN: -IV FLUIDS--GENTLY, PT HAS EVIDENCE OF CHG -LASIX -LOVENOX -ANTIBIOTICS FEELS MUCH BETTER AT TIME OF ADMIT VITALS STABLE, AND O2 SATS IN UPPER 90'S PT HAD OUTPUT OF AT LEAST 1 LITER OF URINE PRIOR TO TIME OF ADMIT. NO DETERIORATION IN PT'S CONDITION DURING ER STAY ECG Initial ECG Impression Date: Aug 27, 2022 Initial ECG Impression Time: 23:40 Initial ECG Rate: 89 Initial ECG Rhythm: Normal Sinus (IVCD) Initial ECG Comparisson: Unchanged (FROM 08/2019) Diagnostic Imaging Comments CXR--PENDING RADIOLOGIST REVIEW -CHF, AND POSSIBLE UNDERLYING INFILTRATES CT CHEST ANGIOGRAM--PER [facility] VIA FAX AT 0200 -NO P.E. -BIBASILAR INTERSTITIAL INFILTRATES, MODERATE BASILAR BRONCHIAL THICKENING, TRACE PLEURAL EFFUSIONS, AND MEDIASTINAL AND BILATERAL PERIHILAR ADENOPATHY -3 CM INFRA-RENAL ABDOMINAL AORTIC ANEURYSM, INFRA-RENAL AORTA IS NOT FULLY EVALUATED. NO DISSECTION. -NO THORACIC AORTIC ANEURYSM. Reviewed: Reviewed by Me Departure Communication (Admissions) 0019--SPOKE WITH DR. JARRELL, AVID EDITOR. ADVISES TO ADMIT TO HOSPITALIST AND HE WILL SEE IN CONSULT. ORDERS NOTED. 0210--SPOKE WITH DR. CALLE, HOSPITALIST, ACCEPTS PT FOR ADMIT. Impression Primary Impression: Non-ST elevation myocardial infarction (NSTEMI) Additional Impressions: Acute respiratory failure CHF (congestive heart failure) POSSIBLE PNEMONIA Cigarette smoker COPD (chronic obstructive pulmonary disease) Cardiomyopathy with implantable cardioverter-defibrillator Disposition: ADMITTED INPATIENT Condition: Improved Admissions Decision to Admit Reason: Admit from ER (General) Decision to Admit/Date: Aug 28, 2022 Time/Decision to Admit Time: 00:20 Departure-Patient Inst. Referrals: STEVEN MONTERO MD (PCP/Family) Primary Care Physician Scripts Albuterol Sulfate (Ventolin Hfa) 90 Mcg Hfa.aer.ad 1 INHALER INH Q2HR PRN for DYSPNEA, #1 EA 1 PUFF = 90 MCG Prov: STEVEN MONTERO MD 08/29/22 Lactobacillus Acidophilus (Acidophilus) 1 Each Capsule 1 EACH PO BID, #30 CAP Prov: STEVEN MONTERO MD 08/29/22 Amoxicillin (Amoxicillin) 500 Mg Tablet 500 MG PO TID, #5 TAB Prov: STEVEN MONTERO MD 08/29/22 Potassium Chloride (Potassium Chloride) 10 Meq Tab.er.prt 10 MEQ PO DAILY, #30 TAB 6 Refills Prov: STEVEN MONTERO MD 08/29/22 Prednisone (Prednisone) 20 Mg Tab 40 MG PO DAILY@0700 for 5 Days, #10 TAB Prov: STEVEN MONTERO MD 08/29/22 Furosemide (Furosemide) 40 Mg Tablet 80 MG PO DAILY, #30 TAB 6 Refills Prov: STEVEN MONTERO MD 08/29/22 Spironolactone (Spironolactone) 25 Mg Tablet 25 MG PO DAILY, #30 TAB 6 Refills Prov: STEVEN MONTERO MD 08/29/22 ALESSIA SUMMERS DO Aug 27, 2022 23:44
[2022-08-27 23:50] LABS: ALBUMIN 4.2 GM/DL (3.2-4.5); POTASSIUM 4.7 MMOL/L (3.6-5.0)
[2022-08-27 23:51] LABS: CALCIUM 9.5 MG/DL (8.5-10.1)
[2022-08-27 23:53] LABS: TOTAL PROTEIN 7.5 GM/DL (6.4-8.2)
[2022-08-27 23:54] LABS: BILIRUBIN,TOTAL 0.4 MG/DL (0.1-1.0)
[2022-08-27 23:55] LABS: ABG BASE EXCESS -2.7 MMOL/L (-2.5-2.5); ABG OXYGEN SATURATION 95 % (94-100); ABG PCO2 37 MMHG (35-45); ABG PH 7.38 (7.37-7.43); ABG PO2 70 MMHG (79-93); ABG TCO2 23.2 MMOL/L (21.0-31.0); ALLENS TEST YES-POS; BILIRUBIN,URINE NEGATIVE (NEGATIVE); CLARITY,URINE CLEAR; COLOR,URINE YELLOW; GLUCOSE, URINE (UA) NEGATIVE (NEGATIVE); KETONES,URINE NEGATIVE (NEGATIVE); LEUKOCYTE ESTERASE ,URINE NEGATIVE (NEGATIVE); NITRITE,URINE NEGATIVE (NEGATIVE); PROTEIN,URINE 1+ (NEGATIVE)
[2022-08-27 23:56] LABS: CREATININE SERUM 1.5 MG/DL (0.60-1.30)
[2022-08-27 23:56] LABS: INSPIRED O2 2L; PATIENT TEMP 96.1; VENTILATOR NO
[2022-08-27 23:59] LABS: FIBRIN DEGRADATION PRODUCTS 1.86 UG/ML (0.00-0.49)
[2022-08-28 00:04] LABS: ERYTHROCYTE SEDIMENTATION RATE 35 MM/HR (0-30)
[2022-08-28 00:12] LABS: AMPHETAMINE SCREEN, URINE NEGATIVE (NEGATIVE); BARBITURATE SCREEN URINE NEGATIVE (NEGATIVE); BENZODIAZEPINES SCREEN URINE NEGATIVE (NEGATIVE); CANNABINOID SCREEN, URINE NEGATIVE (NEGATIVE); COCAINE SCREEN URINE NEGATIVE (NEGATIVE); METHADONE STAT NEGATIVE (NEGATIVE); OPIATE SCREEN URINE NEGATIVE (NEGATIVE); OXYCODONE STAT NEGATIVE (NEGATIVE); PROPOXYPHENE STAT NEGATIVE (NEGATIVE); TRICYCLIC ANTIDEPRESSANTS SCRE NEGATIVE (NEGATIVE)
[2022-08-28 00:13] LABS: BACTERIA,URINE FEW /HPF; SQUAMOUS EPITHELIAL CELL,UR 0-2 /HPF; WBC,URINE 0-2 /HPF
[2022-08-28 00:15] LABS: CREATINE KINASE MB 6.6 NG/ML (<6.6)
[2022-08-28] MEDS ORDERED: ENOXAPARIN 80 MG/0.8 ML (LOVENOX) SYR SC ONE (00:30)
[2022-08-28] MEDS ORDERED: FUROSEMIDE 40 MG/4 ML INJ (LASIX) IVP ONE (00:30)
[2022-08-28] MEDS ORDERED: HOLD METFORMIN - RECEIVED CONTRAST 20 ML VIAL IV SCH (01:00)
[2022-08-28] MEDS ORDERED: CEFEPIME INJECTION 1,000 MG in NS (IVPB) 50 ML IV ONE (01:00)
[2022-08-28] MEDS ORDERED: IOHEXOL 350 MG/ML 100 ML (OMNIPAQUE 350) VIAL IV ONE (01:00)
[2022-08-28] MEDS ORDERED: NS 100 ML (IVPB) BAG IV ONE (01:00)
[2022-08-28] MEDS ORDERED: LACTATED RINGERS 1,000 ML IV ONE (03:32)
[2022-08-28] MEDS: LACTATED RINGERS 1,000 ML IV SCH ×2 (04:00→15:23)
[2022-08-28] MEDS ORDERED: VASOPRESSIN INJECTION 20 UNIT in NS (IVPB) 100 ML IV SCH (04:00)
[2022-08-28] MEDS ORDERED: NOREPINEPHRINE 8 MG/250 ML 250 ML IV SCH (04:00)
[2022-08-28] MEDS ORDERED: NITROGLYCERIN 0.4 MG SL TABS BTL 25'S SL PRN (04:00)
[2022-08-28] MEDS ORDERED: EPINEPHrine 1 MG INJECTION 4 MG in NS (IVPB) 248 ML IV SCH (04:00)
[2022-08-28] MEDS ORDERED: ONDANSETRON 4 MG/2 ML (SDV) Z0FRAN IVP PRN (04:00)
[2022-08-28] MEDS ORDERED: morphine INJ 4 MG/ML 1 ML (VIAL/SYRINGE) IV PRN (04:00)
[2022-08-28] MEDS ORDERED: FUROSEMIDE 40 MG/4 ML INJ (LASIX) IV SCH (06:00)
[2022-08-28 06:14] LABS: BASOPHILS % (AUTO) 0 % (0-10); EOSINOPHILS % (AUTO) 0 % (0-10); HEMATOCRIT 35 % (40-54); HEMOGLOBIN 12.1 g/dL (13.3-17.7); LYMPHOCYTES # (AUTO) 0.9 10^3/uL (1.0-4.0); LYMPHOCYTES % (AUTO) 21 % (12-44); MEAN CORPUSCULAR HEMOGLOBIN 34 pg (25-34); MEAN CORPUSCULAR HGB CONC 34 g/dL (32-36); MEAN CORPUSCULAR VOLUME 99 fL (80-99); MEAN PLATELET VOLUME 9.7 fL (9.0-12.2); MONOCYTES # (AUTO) 0.1 10^3/uL (0.0-1.0); MONOCYTES % (AUTO) 2 % (0-12); NEUTROPHILS # (AUTO) 3.2 10^3/uL (1.8-7.8); NEUTROPHILS % (AUTO) 77 % (42-75); PLATELET COUNT 153 10^3/uL (130-400); WHITE BLOOD COUNT 4.1 10^3/uL (4.3-11.0)
--- NOTE | 2022-08-28 06:34 | Diagnostic Imaging Report ---
PROCEDURE: CT angiography of the chest with contrast. TECHNIQUE: Multiple contiguous axial images were obtained through the chest after uneventful bolus administration of intravenous contrast. 3D reconstructed CTA MIP acquisitions were also performed. Auto Exposure Controls were utilized during the CT exam to meet ALARA standards for radiation dose reduction. INDICATION: Dyspnea. COMPARISON: Chest x-ray 08/27/2022. DISCUSSION: No pulmonary embolus identified. Trace bilateral pleural effusions are present. The thoracic aorta is normal in caliber and configuration. There is mediastinal and hilar adenopathy of uncertain etiology. No pericardial fluid. Mild interstitial thickening is present diffusely. There is some peribronchial thickening also present. Findings could be seen with edema or pneumonia. No focal consolidation. No pulmonary lesion. A 4 cm infrarenal abdominal aortic aneurysm, incompletely viewed. Upper abdomen is otherwise unremarkable. No osseous abnormality identified. IMPRESSION: 1. No pulmonary embolus identified. 2. Trace bilateral pleural effusions with diffuse interstitial thickening and mild peribronchial thickening. Findings could be seen with an infectious or edematous etiology. 3. Mediastinal and hilar adenopathy of uncertain etiology. 4. A 4 cm abdominal aortic aneurysm, incompletely viewed. 5. Agree with preliminary report. Dictated by: Dictated on workstation # [id number]
[2022-08-28 06:40] LABS: CALCIUM 9.4 MG/DL (8.5-10.1)
[2022-08-28 06:44] LABS: CREATININE SERUM 1.4 MG/DL (0.60-1.30)
[2022-08-28 08:05] VITALS: BP_SYST 106; BP_SYST 140; BP_DIAS 56; BP_DIAS 67
[2022-08-28] MEDS: ASPIRIN E.C. 81 MG (ECOTRIN) TAB PO SCH (08:22)
--- NOTE | 2022-08-28 08:33 | Diagnostic Imaging Report ---
INDICATION: Dyspnea COMPARISON: 04/07/2017 TECHNIQUE: Single chest dated 08/28/2022. FINDINGS: Pacer/AICD is present with the battery pack overlying left chest. The cardiac silhouette is mildly enlarged. Significant pulmonary vascular congestion, slightly increased prior examination. Bilateral interstitial opacities with Pelra B lines are present. No significant pleural effusion. No pneumothorax. No acute osseous abnormality. IMPRESSION: Constellation of findings is felt to relate to congestive heart failure with associated interstitial edema. Interstitial infiltrate felt less likely. Dictated by: Dictated on workstation # [id number]
[2022-08-28] MEDS: RT-ALBUTEROL/IPRATROPIUM 3 ML (DUONEB) VIAL INH SCH ×3 (08:47→20:04)
[2022-08-28] MEDS ORDERED: CEFEPIME 1,000 MG/NS 50 ML IVPB IV SCH ×2 (09:00)
[2022-08-28] MEDS ORDERED: predniSONE 20 MG TAB PO NR (10:15)
--- NOTE | 2022-08-28 11:03 | History & Physical-Hospitalist ---
History of Present Illness HPI/Chief Complaint Patient is 72-year-old with past medical history of coronary artery disease and ischemic cardiomyopathy who presented to the emergency department due to shortness of breath. He states he has been cutting wood for the past 2 weeks and has noticed that breathing in the particles has made his breathing worse. He has had progressive shortness of breath and dyspnea on exertion and finally checked his oxygen saturation which was 77% on room air. He decided to seek evaluation in the emergency department for this as he was quite dyspneic. He called EMS and a breathing treatment was initiated which helped si gnificantly. In the emergency department he was found to have an elevated troponin. He was admitted for further management and cardiac consultation. This morning he reports feeling much better. He denies any chest pain throughout this episode. He is requesting further breathing treatments though. Source: patient Date Seen 08/28/22 Time Seen by a Provider: 11:03 Attending Physician Daly Allred MD PCP Admitting Physician: Mickey Marcial MD Attending Physician: Mickey Marcial MD Referring Physician Date of Admission Aug 28, 2022 at 12:20 am Home Medications & Allergies Home Medications Reviewed patient Home Medication Reconciliation performed by pharmacy medication reconciliations physical therapy technician and/or nursing. Patients Allergies have been reviewed. Allergies Allergies Coded Allergies NKANo Known Allergies (Verified Allergy, Unknown, 07/15/07) Uncoded Allergies NKDA ( Allergy, Mild, 07/15/07) Past Amhutap-Jmveiy-Wekjoc Hx Patient Social History Marrital Status: Tobacco Use?: Yes Tobacco type used: Cigars Smoking Status: Current Everyday Smoker Smokeless Tobacco Frequency: Never a User Use of E-Cig and/or Vaping [place]: Never a User Substance use?: No Alcohol Use?: Yes Alcohol type: Hard Liquor Alcohol Frequency: Daily Current Status Advance Directives: No Communicates: Verbally Primary Language: Cameroonian Preferred Spoken Language: Cameroonian Is interpretation needed?: No Sensory deficits: Vision impairment Implanted or Applied Medical D: Pacemaker Past Medical History Surgeries: Cardiac, Coronary Stent, Defibrillator, Orthopedic Currently Using CPAP: No Currently Using BIPAP: No Cardiomyopathy, Coronary Artery Disease, Heart Attack, High Cholesterol, Hypertension Sexually Transmitted Disease: No HIV/AIDS: No Loss of Vision: Denies Hearing Impairment: Hard of Hearing Blood Disorders: No Adverse Reaction/Blood Tranf: No Family Medical History Reviewed Nursing Family Hx Cardiovascular disease 19 FATHER 19 MOTHER G8 BROTHER Completed stroke 19 FATHER DEFIBRILLLATOR REPLACED IN MARCH 2017 CARDIAC CATH 08/21/[address] JARRELL: CONCLUSIONS: 1. Coronary artery disease primarily consisting of 90% stenoses within a stented segment of the proximal and mid left anterior descending to which successful balloon angioplasty was carried out with the reduction of stenosis to less than 20%. 2. Patent stent is seen in the proximal portion of the left circumflex. The right coronary artery is dominant and has mild diffuse disease. 3. Marked impairment of global left ventricular systolic function with an ejection fraction of approximately 15% and with posterobasal diaphragmatic and apical akinesis. 4. Elevated left ventricular end-diastolic pressure. DISCUSSION AND RECOMMENDATIONS: Dual antiplatelet therapy is being continued. Treatment for chronic ischemic cardiomyopathy is being continued. He has been hospitalized for observation after today's interventional procedure. Risk factor modification has been reviewed with him. Review of Systems Constitutional: no symptoms reported EENTM: no symptoms reported Respiratory: cough, dyspnea on exertion; No orthopnea; short of breath Cardiovascular: No chest pain, No edema; Hx of Intervention; No palpitations Gastrointestinal: no symptoms reported Genitourinary: no symptoms reported Musculoskeletal: no symptoms reported Skin: no symptoms reported Psychiatric/Neurological: No Symptoms Reported Physical Exam Physical Exam Vital Signs Vital Signs - First Documented Capillary Refill : Less Than 3 Seconds Height, Weight, BMI Height: 5'6.00" Weight: 170lbs. 0.0oz. [id number]; 25.17 BMI Method:Stated General Appearance: No Apparent Distress, Chronically ill, Thin HEENT: PERRL/EOMI, Moist Mucous Membranes; No Scleral Icterus (L), No Scleral Icterus (R) Neck: Normal Inspection, Supple Respiratory: No Accessory Muscle Use, Wheezing (expiratory) Cardiovascular: Regular Rate, Rhythm, No JVD, No Murmur Gastrointestinal: Normal Bowel Sounds, Non Tender, Soft Extremity: Normal Capillary Refill, No Calf Tenderness, No Pedal Edema Neurologic/Psychiatric: Alert, Oriented x3, Normal Mood/Affect Skin: Normal Color, Warm/Dry Results Results/Procedures Labs Laboratory Tests 08/27/22 23:30 08/28/22 05:55 Patient resulted labs reviewed. Imaging: Reviewed Imaging Report Imaging [facility] [place] NAME: SUSAN BYRNES REC#: [id number] PT STATUS: ADM IN : 1950 PHYSICIAN: ALESSIA SUMMERS DO ADMIT DATE: 08/28/22/[facility] Signed Date of Exam:08/27/22 CHEST 1 VIEW, AP/PA ONLY INDICATION: Dyspnea COMPARISON: 04/07/2017 TECHNIQUE: Single chest dated 08/28/2022. FINDINGS: Pacer/AICD is present with the battery pack overlying left chest. The cardiac silhouette is mildly enlarged. Significant pulmonary vascular congestion, slightly increased prior examination. Bilateral interstitial opacities with Perla B lines are present. No significant pleural effusion. No pneumothorax. No acute osseous abnormality. IMPRESSION: Constellation of findings is felt to relate to congestive heart failure with associated interstitial edema. Interstitial infiltrate felt less likely. Dictated by: Dictated on workstation # [id number] Dict: 08/28/22 0740 Trans: 08/28/22 1003 CV [id number] Interpreted by: MARIELA RATLIFF MD Electronically signed by: MARIELA RATLIFF MD 08/28/22 1003 [facility] [place] NAME: SSUAN BYRNES Rob [facility] REC#: [id number] PT STATUS: ADM IN : 1950 PHYSICIAN: ALESSIA SUMMERS DO ADMIT DATE: 08/28/22/[facility] Draft Date of Exam:08/28/22 CT ANGIO CHEST W PROCEDURE: CT angiography of the chest with contrast. TECHNIQUE: Multiple contiguous axial images were obtained through the chest after uneventful bolus administration of intravenous contrast. 3D reconstructed CTA MIP acquisitions were also performed. Auto Exposure Controls were utilized during the CT exam to meet ALARA standards for radiation dose reduction. INDICATION: Dyspnea. COMPARISON: Chest x-ray 08/27/2022. DISCUSSION: No pulmonary embolus identified. Trace bilateral pleural effusions are present. The thoracic aorta is normal in caliber and configuration. There is mediastinal and hilar adenopathy of uncertain etiology. No pericardial fluid. Mild interstitial thickening is present diffusely. There is some peribronchial thickening also present. Findings could be seen with edema or pneumonia. No focal consolidation. No pulmonary lesion. A 4 cm infrarenal abdominal aortic aneurysm, incompletely viewed. Upper abdomen is otherwise unremarkable. No osseous abnormality identified. IMPRESSION: 1. No pulmonary embolus identified. 2. Trace bilateral pleural effusions with diffuse interstitial thickening and mild peribronchial thickening. Findings could be seen with an infectious or edematous etiology. 3. Mediastinal and hilar adenopathy of uncertain etiology. 4. A 4 cm abdominal aortic aneurysm, incompletely viewed. 5. Agree with preliminary report. Dictated on workstation # [id number] Dict: 08/28/22619 Trans: 08/28/2233 [facility] [id number] Interpreted by: HARI YOUSSEF MD Electronically signed by: Assessment/Plan Admission Diagnosis Acute hypoxic respiratory failure Admission Status: Inpatient Order (span 2 midnights) Reason for Inpatient Admission: see below Assessment and Plan Acute hypoxic respiratory failure\\ NSTEMI COPD exacerbation CHF decompensated Likely multifactorial Wheezing on exam concerning for COPD exacerbation given history Add prednisone MAT protocol Likely some component of heart failure as well as EF 25% 2 months ago- AICD in place Cardiology consulted, appreciate recs Continue lasix and HF meds HTN CAD HLD Aortic aneurysm- 4.3cm on last usg (4cm on CT last night) Continue home meds as able Tobacco abuse Encouraged cessation DVT ppx: MICKEY Villa MD Aug 28, 2022 11:03
[2022-08-28 12:10] VITALS: BP 130/46
--- NOTE | 2022-08-28 12:34 | Consultation-Cardiology ---
HPI-Cardiology Cardiology Consultation: Date of Consultation 08/28/22 Time Seen by a Provider: 09:50 Date of Admission Attending Physician Daly Allred MD Admitting Physician Admitting Physician: Yelena Marcial MD Attending Physician: Yelena Marcial MD Consulting Physician YAHIR JARRELL MD, MA, FACP, FACC, FSCAI, CCDS HPI: Chief Complaint: Shortness of breath 72 yo man with known ischemic dilated cardiomyopathy presented with increasing shortness of breath and hypoxia. Was found to in decomp CHF and troponin was mildly elevated. Has been treated with diuretics and is feeling better. Denies chest pain. Denies n/v/d. Denies palp or syncope. Denies swelling. Denies ICD shocks. Reports gen malaise and weakness. Denies focal weakness Review of Systems-Cardiology Review of Systems Constitutional: malaise, tiredness; No weight loss, No weight gain Eyes: No vision change Ears/Nose/Throat: No ear discharge, No nasal drainage, No recent hearing loss Respiratory: As described under HPI Cardiovascular: As described under HPI Gastrointestinal: No diarrhea, No nausea, No vomiting Genitourinary: No dysuria, No hematuria, No urine frequency changes Musculoskeletal: back pain (chronic) Skin: No rash, No ulcerations Psychiatric/Neurological: No seizure, No focal weakness, No syncope Hematologic: No bleeding abnormalities PXE-Zizlbv-Zzfslv Hx Patient Social History Smoking Status: Current Everyday Smoker Have you traveled recently?: No Alcohol Use?: Yes Tobacco type used: Cigars Immunizations Up To Date Tetanus Booster (TDap): More than 5yrs Past Medical History PMH As described under Assessment. Family Medical History Family History: Cardiovascular disease 19 FATHER 19 MOTHER G8 BROTHER Completed stroke 19 FATHER Allergies and Home Medications Allergies Coded Allergies: NKANo Known Allergies (Verified Allergy, Unknown, 07/15/07) Uncoded Allergies: NKDA (Allergy, Mild, 07/15/07) Patient Home Medication List Home Medication List Reviewed: Yes Acetaminophen (Tylenol Extra Strength) 500 Mg Tablet, 1,000 MG PO Q6H PRN for PAIN, (Reported) Entered as Reported by: ASHISH HARTMAN on 06/22/15 1359 Aspirin (Aspirin) 81 Mg Tab.chew, 81 MG PO DAILY, (Reported) Entered as Reported by: MARCI MURRY on 08/20/19 0807 Atorvastatin Calcium (Atorvastatin Calcium) 40 Mg Tablet, 40 MG PO DAILY, (Reported) Entered as Reported by: JERRELL HOLLEY on 04/07/17 1204 Clopidogrel Bisulfate (Plavix) 75 Mg Tablet, 75 MG PO DAILY, (Reported) Entered as Reported by: MARCI MURRY on 08/20/19 0807 Lisinopril (Lisinopril) 2.5 Mg Tablet, 2.5 MG PO DAILY, (Reported) Entered as Reported by: MARCI MURRY on 08/20/19 0807 Metoprolol Tartrate (Metoprolol Tartrate) 25 Mg Tablet, 12.5 MG PO BID, (Reported) Entered as Reported by: MARCI MURRY on 08/20/19 0807 Physical Exam-Cardiology Physical Exam Vital Signs/I&O 08/28/22 08/28/22 08/28/22 08/28/22 02:51 03:22 03:54 04:00 Temp 35.7 36.7 Pulse 88 82 70 Resp 20 16 B/P (MAP) 104/72 Pulse Ox 96 98 98 O2 Delivery Nasal Cannula Nasal Cannula O2 Flow Rate 2.00 2.00 2.00 08/28/22 08/28/22 08/28/22 08/28/22 04:08 07:00 08:00 08:05 Temp 36.5 Pulse 70 78 71 Resp 17 B/P (MAP) 106/67 (80) Pulse Ox 98 O2 Delivery Nasal Cannula O2 Flow Rate 2.00 08/28/22 08/28/22 08:48 12:10 Temp 36.9 Pulse 78 Resp 20 B/P (MAP) 130/46 (74) Pulse Ox 93 95 O2 Delivery Nasal Cannula Nasal Cannula O2 Flow Rate 2.00 2.00 Capillary Refill : Less Than 3 Seconds Constitutional: AAO x 3, well-developed, well-nourished HEENT: EOMI, hearing is well preserved; No xanthelasmas are seen Neck: carotid pulses are 2 + bilaterally, with good upstrokes Respiratory: No accessory muscle use; chest expansion is symmetric, other (basal fine and coarse crackles, fair air entry) Cardiovascular: regular rate-rhythm, S1 and S2, systolic murmur (soft DEXTER at card base) Gastrointestinal: No tender; soft; No guarding, No rebound; audible bowel martha nds Extremities: No clubbing, No cyanosis, No significant edema Neurologic/Psychiatric: oriented x 3, other (moves all limbs equally) Skin: warm/dry; No cyanosis, No cool, No rash, No ulcerations Data Review Labs Laboratory Tests 08/27/22 23:30: White Blood Count 8.5, Red Blood Count 3.49L, Hemoglobin 11.8L, Hematocrit 35L, Mean Corpuscular Volume 101H, Mean Corpuscular Hemoglobin 34, Mean Corpuscular Hemoglobin Concent 33, Red Cell Distribution Width 15.0H, Platelet Count 160, Mean Platelet Volume 9.4, Immature Granulocyte % (Auto) 0, Neutrophils (%) (Auto) 64, Lymphocytes (%) (Auto) 28, Monocytes (%) (Auto) 6, Eosinophils (%) (Auto) 2, Basophils (%) (Auto) 0, Neutrophils # (Auto) 5.5, Lymphocytes # (Auto) 2.3, Monocytes # (Auto) 0.5, Eosinophils # (Auto) 0.2, Basophils # (Auto) 0.0, Immature Granulocyte # (Auto) 0.0, Erythrocyte Sedimentation Rate 35H, Prothrombin Time 14.0, INR Comment 1.0, Activated Partial Thromboplast Time 30, D-Dimer 1.86H, Sodium Level 140, Potassium Level 4.7, Chloride Level 108H, Carbon Dioxide Level 22, Anion Gap 10, Blood Urea Nitrogen 19H, Creatinine 1.50H , Estimat Glomerular Filtration Rate 50, BUN/Creatinine Ratio 13, Glucose Level 101, Calcium Level 9.5, Corrected Calcium 9.3, Magnesium Level 2.0, Total Bilirubin 0.4, Aspartate Amino Transf (AST/SGOT) 23, Alanine Aminotransferase (ALT/SGPT) 14, Alkaline Phosphatase 71, Total Creatine Kinase 400H, Creatine Kinase MB 6.6*H, Myoglobin 158.3H, Troponin I 0.052H, C-Reactive Protein High Sensitivity 0.51H, B-Type Natriuretic Peptide 326.5H, Total Protein 7.5, Albumin 4.2, Procalcitonin 0.04, Serum Alcohol < 10, Influenza Type A (RT-PCR) Not Detected, Influenza Type B (RT-PCR) Not Detected, SARS-CoV-2 RNA (RT-PCR) Not Detected 08/27/22 23:46: Urine Color YELLOW, Urine Clarity CLEAR, Urine pH 5.0, Urine Specific [place] >=1.030, Urine Protein 1+H, Urine Glucose (UA) NEGATIVE, Urine Ketones NEGATIVE, Urine Nitrite NEGATIVE, Urine Bilirubin NEGATIVE, Urine Urobilinogen 0.2, Urine Leukocyte Esterase NEGATIVE, Urine RBC (Auto) NEGATIVE, Urine RBC NONE, Urine WBC 0-2, Urine Squamous Epithelial Cells 0-2, Urine Crystals NONE, Urine Bacteria FEWH, Urine Casts PRESENT, Urine Hyaline Casts 10-25H, Urine Mucus SMALLH, Urine Culture Indicated CULTURE PENDING, Blood Gas Puncture Site RIGHT RADIAL, Blood Gas Patient Temperature 96.1, Arterial Blood pH 7.38, Arterial Blood Partial Pressure CO2 37, Arterial Blood Partial Pressure O2 70L, Arterial Blood HCO3 22L, Arterial Blood Total CO2 23.2, Arterial Blood Oxygen Saturation 95, Arterial Blood Base Excess -2.7L, Zach Test YES-POS, Blood Gas Ventilator Setting NO, Blood Gas Inspired Oxygen 2L, Urine Opiates Screen NEGATIVE, Urine Oxycodone Screen NEGATIVE, Urine Methadone Screen NEGATIVE, Urine Propoxyphene Screen NEGATIVE, Urine Barbiturates Screen NEGATIVE, Ur Tricyclic Antidepressants Screen NEGATIVE, Urine Phencyclidine Screen NEGATIVE, Urine Amphetamines Screen NEGATIVE, Urine Methamphetamines Screen NEGATIVE, Urine Benzodiazepines Screen NEGATIVE, Urine Cocaine Screen NEGATIVE, Urine Cannabinoids Screen NEGATIVE 08/27/22 23:54: Lactic Acid Level 0.99 08/28/22 02:22: Troponin I 0.106H 08/28/22 05:55: White Blood Count 4.1L, Red Blood Count 3.56L, Hemoglobin 12.1L, Hematocrit 35L, Mean Corpuscular Volume 99, Mean Corpuscular Hemoglobin 34, Mean Corpuscular Hemoglobin Concent 34, Red Cell Distribution Width 14.6H, Platelet Count 153, Mean Platelet Volume 9.7, Immature Granulocyte % (Auto) 0, Neutrophils (%) (Auto) 77H, Lymphocytes (%) (Auto) 21, Monocytes (%) (Auto) 2, Eosinophils (%) (Auto) 0, Basophils (%) (Auto) 0, Neutrophils # (Auto) 3.2, Lymphocytes # (Auto) 0.9L, Monocytes # (Auto) 0.1, Eosinophils # (Auto) 0.0, Basophils # (Auto) 0.0, Immature Granulocyte # (Auto) 0.0, Sodium Level 137, Potassium Level 4.0, Chloride Level 104, Carbon Dioxide Level 19L, Anion Gap 14, Blood Urea Nitrogen 22H, Creatinine 1.40H, Estimat Glomerular Filtration Rate 54, BUN/Creatinine Ratio 16, Glucose Level 125H, Calcium Level 9.4, Troponin I 0.104H, Triglycerides Level 78, Cholesterol Level 144, LDL Cholesterol Direct 89, VLDL Cholesterol 16, HDL Cholesterol 39L Laboratory Tests 08/27/22 23:30 08/28/22 05:55 A/P-Cardiology Assessment/Admission Diagnosis Scbfv-[id number] HFrEF due to ischemic cardiomyopathy Mild troponin elevation due to type 2 AK due to decompensated CHF and presentation with hypoxia (77% oxygen sat) CAD: - Last card cath on 08/20/19 showed coronary artery disease primarily consisting of 90% stenoses within a stented segment (known to be Taxus 2.75x28 and Promus 2.25x12) of the proximal and mid left anterior descending to which successful balloon angioplasty was carried out with a 3 mm balloon with reduction of stenosis to less than 20%; patent stent in the proximal portion of the left circumflex (known to be Promus 2.25x16). The right coronary artery is dominant and has mild diffuse disease, marked impairment of global left ventricular systolic function with an ejection fraction of approximately 15% and with posterobasal diaphragmatic and apical akinesis, elevated left ventricular end-diastolic pressure - MPI of 03/02/21: anteroapical and inferolateral AK without significant ischemia and LVEF 21%, dilated cm Ischemic cm - with EF approx 15% per cardiac cath of 08-20-19 - Echocardiogram of June 2015 showed LVEF 35%. Distal septal and apical akinesis. Mild MR and TR. No evidence of significant valvular stenosis. PASP approx 45mmHg. - Echo of 02/25/21: LVEF 30-35%, grade 1 gustafson dysfunction, anteroseptal and anteroapical akinesis, mod to sev MR, PASP 40-45 mmHg - S/p ICD placement by Dr Lynn in 2007 for SCD prophylaxis, which SUSANA on 04-05-2017. Pulse gen change on 04/07/17 - Device functioning normally on interrogation of 06/20/22 - Echocardiogram of 06-14-22 showed LVEF 25-30%. Severe MR. LA mod dilated AAA - CTA of abdomen of 06-14-22 Abdominal aortic aneurysm, increased in size when compared with the prior CT angiogram of the abdomen and pelvis performed on 09/09/2015. This now measures approximately 4.3 cm AP diameter compared with 3.2 cm on prior exam. Chronic continuing tobacco use - cessation advised HLD - statin therapy Bilateral leg claudication, more on right - PAD for which he refuses any further w/u or treatment. 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, proximally occluded FABIANA, total occlusion of distal R SFA and of the R mid popliteal artery (after reconstitution of the R prox popliteal artery), mod disease in the L popliteal artery with a fusiform aneurysm measuring up to 1.1 cm - Incidentally noted, chronic, total occlusion of proximal R SFA at time of card cath of 08/20/19 Abnormal ECG: - NSR with old septal AK, ST abn in inf and anterolat leads (similar to ECG of 2017) Longstanding h/o non-compliance with medications and f/u (refuses w/u for carotid or coronary or peripheral arterial disease or AAA) Carotid dz: - Carotid u/s of July 2016 showed approx 50% R ICA stenosis; less than 40% L ICA stenosis - u/s of 06/20/22 showed 60-79% R ICA; L ICA chronically occluded Discussion and Recomendations * Complex management * Has h/o noncompliance. Advised compliance * Treat with beta-alexa, ROSELINE-inhib, spironolactone, and SGLT-2 inhib (for dilated cm) * Treat with furosemide for CHF * Monitor labs closely * Advised immediate and complete cessation of smoking YAHIR JARRELL MD [facility] Aug 28, 2022 12:34
[2022-08-28] MEDS ORDERED: LOSARTAN 25 MG (COZAAR) TAB PO NR (12:45)
[2022-08-28] MEDS ORDERED: ENOXAPARIN 80 MG/0.8 ML (LOVENOX) SYR SC SCH (13:00)
[2022-08-28] MEDS ORDERED: ENOXAPARIN 40 MG/0.4 ML (LOVENOX) SYR SQ SCH (15:00)
[2022-08-28 16:00] VITALS: BP 116/52
[2022-08-28 19:43] VITALS: BP 111/55
[2022-08-28 23:30] VITALS: BP 124/68
[2022-08-28 23:34] VITALS: BP 107/50
[2022-08-29] MEDS: RT-ALBUTEROL/IPRATROPIUM 3 ML (DUONEB) VIAL INH SCH ×2 (03:15→09:02)
[2022-08-29 03:46] VITALS: BP 108/59
[2022-08-29 05:09] LABS: HEMATOCRIT 31 % (40-54); HEMOGLOBIN 10.9 g/dL (13.3-17.7); MEAN CORPUSCULAR HEMOGLOBIN 34 pg (25-34); MEAN CORPUSCULAR HGB CONC 35 g/dL (32-36); MEAN CORPUSCULAR VOLUME 98 fL (80-99); PLATELET COUNT 152 10^3/uL (130-400); WHITE BLOOD COUNT 7.4 10^3/uL (4.3-11.0)
[2022-08-29 05:22] LABS: POTASSIUM 3.8 MMOL/L (3.6-5.0)
[2022-08-29 05:23] LABS: CALCIUM 8.9 MG/DL (8.5-10.1)
[2022-08-29 05:28] LABS: CREATININE SERUM 1.12 MG/DL (0.60-1.30)
[2022-08-29] MEDS ORDERED: predniSONE 20 MG TAB PO SCH (07:00)
--- NOTE | 2022-08-29 08:39 | Discharge Summary ---
Diagnosis/Chief Complaint Date of Admission Aug 28, 2022 at 00:20 Date of Discharge Discharge Summary Discharge Physical Examination Allergies: Coded Allergies: NKANo Known Allergies (Verified Allergy, Unknown, 07/15/07) Uncoded Allergies: NKDA (Allergy, Mild, 07/15/07) Vitals & I&Os Vital Signs Date Time Temp Pulse Resp B/P (MAP) Pulse Ox O2 Delivery O2 Flow Rate FiO2 08/29/22 07:36 36.4 08/29/22 07:16 79 08/29/22 03:46 12 108/59 (75) 95 Nasal Cannula 2.00 Hospital Course Pending Labs Laboratory Tests 08/29/22 04:51: White Blood Count 7.4, Red Blood Count 3.21, Hemoglobin 10.9, Hematocrit 31, Mean Corpuscular Volume 98, Mean Corpuscular Hemoglobin 34, Mean Corpuscular Hemoglobin Concent 35, Red Cell Distribution Width 14.7, Platelet Count 152, Mean Platelet Volume 10.0, Sodium Level 138, Potassium Level 3.8, Chloride Level 105, Carbon Dioxide Level 21, Anion Gap 12, Blood Urea Nitrogen 28, Creatinine 1.12, Estimat Glomerular Filtration Rate 71, BUN/Creatinine Ratio 25, Glucose Level 108, Calcium Level 8.9 Discharge Instructions to patient/family Please see electronic discharge instructions given to patient. Discharge Medications Reviewed and agree with Discharge Medication list on patient's Discharge Instruction sheet STEVEN MONTERO MD Aug 29, 2022 08:39
[2022-08-29] MEDS ORDERED: SPIR25TA5 PO (08:48)
[2022-08-29] MEDS ORDERED: PRD20T PO (08:48)
[2022-08-29] MEDS ORDERED: LACT1CAP28 PO (08:48)
[2022-08-29] MEDS ORDERED: FURO40TA4 PO (08:48)
[2022-08-29] MEDS ORDERED: AMOX500T2 PO (08:48)
[2022-08-29] MEDS ORDERED: POTA-177 PO (08:48)
--- NOTE | 2022-08-29 08:49 | Discharge Inst-Simple/Standard ---
Discharge Inst-Standard Reconcile Patient Problems Problems Reviewed?: Yes Discharge Medications New, Converted or Re-Newed RX: Transmitted to Pharmacy Patient Instructions/Follow Up Plan of Care/Instructions/FU: 1-2 [facility] [address] JARRELL Activity as Tolerated: Yes Discharge Diet: Low Sodium Diet, Avoid Fatty Foods Return to The Hospital For: ANY RECURRENT CHEST PAIN, SHORTNESS OF BREATH OR OTHER LIFETHREATENING ILLNESS OR INJURY STEVEN MONTERO MD Aug 29, 2022 08:49
[2022-08-29] MEDS ORDERED: ALBU8.5H6 INH (08:52)
[2022-08-29] MEDS ORDERED: SPIRONOLACTONE 25 MG (ALDACTONE) TAB PO SCH (09:00)
[2022-08-29] MEDS ORDERED: FUROSEMIDE 40 MG (LASIX) TAB PO SCH (09:00)
[2022-08-29] MEDS ORDERED: LOSARTAN 25 MG (COZAAR) TAB PO SCH (09:00)
--- NOTE | 2022-08-29 09:06 | Progress Note - Cardiology ---
Cardiology SOAP Progress Note Subjective: Sitting up in bed No c/o CP or SOB this morning Wants to go home Objective: I&O/Vital Signs 08/28/22 08/29/22 08/29/22 08/29/22 23:34 01:00 03:15 03:46 Temp 36.4 36.4 Pulse 62 63 64 Resp 20 12 B/P (MAP) 107/50 (69) 108/59 (75) Pulse Ox 93 96 95 O2 Delivery Nasal Cannula High Flow N/C Nasal Cannula O2 Flow Rate 2.00 2.00 2.00 08/29/22 08/29/22 07:16 07:36 Temp 36.4 Pulse 79 08/29/22 00:00 Intake Total 1727 ml Output Total 2140 ml Balance -413 ml Weight (Pounds): 170 Weight (Ounces): 0.0 Weight (Calculated Kilograms): 77.410404 Constitutional: AAO x 3, well-developed, well-nourished Respiratory: No accessory muscle use; chest expansion is symmetric, other (basal fine and coarse crackles, fair air entry) Cardiovascular: regular rate-rhythm, S1 and S2, systolic murmur (soft DEXTER at ca rd base) Gastrointestional: No tender; soft; No guarding, No rebound; audible bowel sounds Extremities: No clubbing, No cyanosis, No significant edema Neurologic/Psychiatric: oriented x 3, other (moves all limbs equally) Skin: warm/dry; No cyanosis, No cool, No rash, No ulcerations Results/Procedures: Labs Laboratory Tests 08/29/22 04:51: White Blood Count 7.4, Red Blood Count 3.21L, Hemoglobin 10.9L, Hematocrit 31L, Mean Corpuscular Volume 98, Mean Corpuscular Hemoglobin 34, Mean Corpuscular Hemoglobin Concent 35, Red Cell Distribution Width 14.7H, Platelet Count 152, Mean Platelet Volume 10.0, Sodium Level 138, Potassium Level 3.8, Chloride Level 105, Carbon Dioxide Level 21, Anion Gap 12, Blood Urea Nitrogen 28H, Creatinine 1.12, Estimat Glomerular Filtration Rate 71, BUN/Creatinine Ratio 25, Glucose Level 108H, Calcium Level 8.9 Microbiology 08/28/22 Blood Culture - Preliminary, Resulted No growth Laboratory Tests 08/27/22 23:30 08/28/22 05:55 08/29/22 04:51 A/P: Assessment: Lpekr-oi-wntrabk HFrEF due to ischemic cardiomyopathy - clinically improved Mild troponin elevation due to type 2 [place] due to decompensated CHF and presentation with hypoxia (77% oxygen sat) CAD: - Last card cath on 08/20/19 showed coronary artery disease primarily consisting of 90% stenoses within a stented segment (known to be Taxus 2.75x28 and Promus 2.25x12) of the proximal and mid left anterior descending to which successful balloon angioplasty was carried out with a 3 mm balloon with reduction of stenosis to less than 20%; patent stent in the proximal portion of the left circumflex (known to be Promus 2.25x16). The right coronary artery is dominant and has mild diffuse disease, marked impairment of global left ventricular systolic function with an ejection fraction of approximately 15% and with posterobasal diaphragmatic and apical akinesis, elevated left ventricular end- diastolic pressure - MPI of 03/02/21: anteroapical and inferolateral [place] without significant ischemia and LVEF 21%, dilated cm Ischemic cm - with EF approx 15% per cardiac cath of 08-20-19 - Echocardiogram of June 2015 showed LVEF 35%. Distal septal and apical akinesis. Mild MR and TR. No evidence of significant valvular stenosis. PASP approx 45mmHg. - Echo of 02/25/21: LVEF 30-35%, grade 1 gustafson dysfunction, anteroseptal and anteroapical akinesis, mod to sev MR, PASP 40-45 mmHg - S/p ICD placement by Dr Lynn in 2007 for SCD prophylaxis, which SUSANA on 04-05-2017. Pulse gen change on 04/07/17 - Device functioning normally on interrogation of 06/20/22 - Echocardiogram of 06-14-22 showed LVEF 25-30%. Severe MR. LA mod dilated AAA - CTA of abdomen of 06-14-22 Abdominal aortic aneurysm, increased in size when compared with the prior CT angiogram of the abdomen and pelvis performed on 09/09/2015. This now measures approximately 4.3 cm AP diameter compared with 3.2 cm on prior exam. Chronic continuing tobacco use - cessation advised HLD - statin therapy Bilateral leg claudication, more on right - PAD for which he refuses any further w/u or treatment. 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, proximally occluded FABIANA, total occlusion of distal R SFA and of the R mid popliteal artery (after reconstitution of the R prox popliteal artery), mod disease in the L popliteal artery with a fusiform aneurysm measuring up to 1.1 cm - Incidentally noted, chronic, total occlusion of proximal R SFA at time of card cath of 08/20/19 Abnormal ECG: - NSR with old septal WY, ST abn in inf and anterolat leads (similar to ECG of 2017) Longstanding h/o non-compliance with medications and f/u (refuses w/u for carotid or coronary or peripheral arterial disease or AAA) Carotid dz: - Carotid u/s of July 2016 showed approx 50% R ICA stenosis; less than 40% L ICA stenosis - u/s of 06/20/22 showed 60-79% R ICA; L ICA chronically occluded Plan: * Complex management * Has h/o noncompliance. Advised compliance * Continue to treat with beta-alexa, ROSELINE-inhib, spironolactone, and SGLT-2 inhib (for dilated cm) * Continue furosemide for CHF * Monitor labs closely * Advised immediate and complete cessation of smoking JANET SAHNI Aug 29, 2022 09:06
[2022-08-29] MEDS: ASPIRIN E.C. 81 MG (ECOTRIN) TAB PO SCH (09:11)
--- NOTE | 2022-08-29 09:25 | Progress Note - Cardiology ---
Cardiology SOAP Progress Note Subjective: Feels well No shortness of breath No n/v/d No cp or palp or syncope No swelling Wishes to go home States will comply with meds Objective: I&O/Vital Signs 08/28/22 08/29/22 08/29/22 08/29/22 23:34 01:00 03:15 03:46 Temp 36.4 36.4 Pulse 62 63 64 Resp 20 12 B/P (MAP) 107/50 (69) 108/59 (75) Pulse Ox 93 96 95 O2 Delivery Nasal Cannula High Flow N/C Nasal Cannula O2 Flow Rate 2.00 2.00 2.00 08/29/22 08/29/22 08/29/22 07:16 07:36 09:02 Temp 36.4 Pulse 79 Pulse Ox 98 O2 Delivery High Flow N/C O2 Flow Rate 2.00 08/29/22 00:00 Intake Total 1727 ml Output Total 2140 ml Balance -413 ml Weight (Pounds): 170 Weight (Ounces): 0.0 Weight (Calculated Kilograms): 77.122157 Constitutional: AAO x 3, well-developed, well-nourished Respiratory: No accessory muscle use; chest expansion is symmetric, other (bas al fine and coarse crackles, fair air entry) Cardiovascular: regular rate-rhythm, S1 and S2, systolic murmur (soft DEXTER at card base) Gastrointestional: No tender; soft; No guarding, No rebound; audible bowel sounds Extremities: No clubbing, No cyanosis, No significant edema Neurologic/Psychiatric: oriented x 3, other (moves all limbs equally) Skin: warm/dry; No cyanosis, No cool, No rash, No ulcerations Results/Procedures: Labs Laboratory Tests 08/29/22 04:51: White Blood Count 7.4, Red Blood Count 3.21L, Hemoglobin 10.9L, Hematocrit 31L, Mean Corpuscular Volume 98, Mean Corpuscular Hemoglobin 34, Mean Corpuscular Hemoglobin Concent 35, Red Cell Distribution Width 14.7H, Platelet Count 152, Mean Platelet Volume 10.0, Sodium Level 138, Potassium Level 3.8, Chloride Level 105, Carbon Dioxide Level 21, Anion Gap 12, Blood Urea Nitrogen 28H, Creatinine 1.12, Estimat Glomerular Filtration Rate 71, BUN/Creatinine Ratio 25, Glucose L evel 108H, Calcium Level 8.9 Microbiology 08/28/22 Blood Culture - Preliminary, Resulted No growth Laboratory Tests 08/27/22 23:30 08/28/22 05:55 08/29/22 04:51 A/P: Assessment: Dxfyw-po-sslbuew HFrEF due to ischemic cardiomyopathy - clinically improved Mild troponin elevation due to type 2 [place] due to decompensated CHF and presentation with hypoxia (77% oxygen sat) CAD: - Last card cath on 08/20/19 showed coronary artery disease primarily consisting of 90% stenoses within a stented segment (known to be Taxus 2.75x28 and Promus 2.25x12) of the proximal and mid left anterior descending to which successful balloon angioplasty was carried out with a 3 mm balloon with reduction of stenosis to less than 20%; patent stent in the proximal portion of the left circumflex (known to be Promus 2.25x16). The right coronary artery is dominant and has mild diffuse disease, marked impairment of global left ventricular systolic function with an ejection fraction of approximately 15% and with posterobasal diaphragmatic and apical akinesis, elevated left ventricular end- diastolic pressure - MPI of 03/02/21: anteroapical and inferolateral [place] without significant ischemia and LVEF 21%, dilated cm Ischemic cm - with EF approx 15% per cardiac cath of 08-20-19 - Echocardiogram of June 2015 showed LVEF 35%. Distal septal and apical akinesis. Mild MR and TR. No evidence of significant valvular stenosis. PASP approx 45mmHg. - Echo of 02/25/21: LVEF 30-35%, grade 1 gustafson dysfunction, anteroseptal and anteroapical akinesis, mod to sev MR, PASP 40-45 mmHg - S/p ICD placement by Dr Lynn in 2007 for SCD prophylaxis, which SUSANA on 04-05-2017. Pulse gen change on 04/07/17 - Device functioning normally on interrogation of 06/20/22 - Echocardiogram of 06-14-22 showed LVEF 25-30%. Severe MR. LA mod dilated AAA - CTA of abdomen of 06-14-22 Abdominal aortic aneurysm, increased in size when compared with the prior CT angiogram of the abdomen and pelvis performed on 09/09/2015. This now measures approximately 4.3 cm AP diameter compared with 3.2 cm on prior exam. Chronic continuing tobacco use - cessation advised HLD - statin therapy Bilateral leg claudication, more on right - PAD for which he refuses any further w/u or treatment. 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, proximally occluded FABIANA, total occlusion of distal R SFA and of the R mid popliteal artery (after reconstitution of the R prox popliteal artery), mod disease in the L popliteal artery with a fusiform aneurysm measuring up to 1.1 cm - Incidentally noted, chronic, total occlusion of proximal R SFA at time of card cath of 08/20/19 Abnormal ECG: - NSR with old septal VA, ST abn in inf and anterolat leads (similar to ECG of 2017) Longstanding h/o non-compliance with medications and f/u (refuses w/u for carotid or coronary or peripheral arterial disease or AAA) Carotid dz: - Carotid u/s of July 2016 showed approx 50% R ICA stenosis; less than 40% L ICA stenosis - u/s of 06/20/22 showed 60-79% R ICA; L ICA chronically occluded Plan: * Has h/o noncompliance. Advised compliance * Continue to treat with beta-alexa, ROSELINE-inhib, spironolactone * Continue furosemide for CHF * Monitor labs closely * Advised immediate and complete cessation of smoking * I discussed his case in detail with Dr Allred this am * Outpt f/u advised YAHIR JARRELL MD [facility] Aug 29, 2022 09:25
== END 2022-08-29 09:45 | disposition home or self-care (01) | DRG 280 ==
LOC: EDUNIT# 23:24 → ER 23:26 → CSD 08-28 00:20
PROVIDERS: ADMIT Family Medicine; ATTEND Family Medicine
PROC: 5A0935A Assistance with Respiratory Ventilation, Less than 24 Consecutive Hours, High Flow/Velocity Cannula (ICD-10-PCS; principal; 2022-08-28)
DX: I11.0 Hypertensive heart disease with heart failure (principal); I50.23 Acute on chronic systolic (congestive) heart failure; I21.A1 Myocardial infarction type 2; J96.01 Acute respiratory failure with hypoxia; J44.1 Chronic obstructive pulmonary disease with (acute) exacerbation; I25.10 Atherosclerotic heart disease of native coronary artery without angina pectoris; I25.5 Ischemic cardiomyopathy; F17.210 Nicotine dependence, cigarettes, uncomplicated; Z95.5 Presence of coronary angioplasty implant and graft; Z95.810 Presence of automatic (implantable) cardiac defibrillator; I25.2 Old myocardial infarction; E78.00 Pure hypercholesterolemia, unspecified; I71.9 Aortic aneurysm of unspecified site, without rupture; Z79.82 Long term (current) use of aspirin; Z79.899 Other long term (current) drug therapy; I71.40 Abdominal aortic aneurysm, without rupture, unspecified; I73.9 Peripheral vascular disease, unspecified; Z91.14 Patient's other noncompliance with medication regimen; I77.9 Disorder of arteries and arterioles, unspecified; I42.0 Dilated cardiomyopathy; Z20.822 Contact with and (suspected) exposure to COVID-19
CPT/HCPCS: 36415; 71045; 71275; 80048; 80053; 80061; 80306; 80320; 81000; 82550; 82553; 82805; 83605; 83735; 83874; 83880; 84145; 84484; 85025; 85027; 85379; 85610; 85652; 85730; 86141; 87040; 87088; 87636; 93005; 93041; 94640

== ENCOUNTER 2022-09-13 07:46 | Inpatient (IN) | payer MEDICARE ==
[2022-09-13] VITALS (7 sets, daily range): BP systolic 106–135; BP diastolic 35–81
[~2022-09-13] VITALS: Ht 167.7 cm; Wt 69.7 kg
[~2022-09-13 07:46] MED LIST changes: +ALBU8.5H6 INH; +AMOX500T2 PO; +FAMO20TA5 PO; +FURO40TA4 PO; +FURO80TA3 PO; +LACT1CAP28 PO; +POTA-177 PO; +PRD20T PO; +SPIR25TA5 PO
[2022-09-13 08:47] LABS: BASOPHILS % (AUTO) 1 % (0-10); EOSINOPHILS % (AUTO) 0 % (0-10); HEMATOCRIT 30 % (40-54); HEMOGLOBIN 10.6 g/dL (13.3-17.7); LYMPHOCYTES % (AUTO) 17 % (12-44); MEAN CORPUSCULAR HEMOGLOBIN 34 pg (25-34); MEAN CORPUSCULAR HGB CONC 36 g/dL (32-36); MEAN CORPUSCULAR VOLUME 95 fL (80-99); MEAN PLATELET VOLUME 9.5 fL (9.0-12.2); MONOCYTES # (AUTO) 0.6 10^3/uL (0.0-1.0); MONOCYTES % (AUTO) 10 % (0-12); NEUTROPHILS # (AUTO) 4.4 10^3/uL (1.8-7.8); NEUTROPHILS % (AUTO) 72 % (42-75); PLATELET COUNT 168 10^3/uL (130-400); WHITE BLOOD COUNT 6.1 10^3/uL (4.3-11.0)
[2022-09-13 09:00] LABS: ALBUMIN 3.3 GM/DL (3.2-4.5)
[2022-09-13 09:01] LABS: POTASSIUM 4.1 MMOL/L (3.6-5.0)
--- NOTE | 2022-09-13 09:02 | Diagnostic Imaging Report ---
CLINICAL INDICATION: Patient with worsening shortness of air and not feeling like he is moving air. Patient states he has been admitted recently to the hospital for flu/pneumonia and is on home oxygen. EXAM: Portable chest x-ray upright view. COMPARISON: Chest x-ray dated 09/08/2022. FINDINGS: Lungs/pleura: There is interval progression of small to moderate amount of lung infiltrates involving the bilateral lower lung field regions. There is no pneumothorax. There is no pleural effusion. Mediastinum: Unremarkable. Pulmonary vasculature: Unremarkable. Heart: Cardiac silhouette is upper limits of normal. Cardiac pacemaker/AICD is again seen, stable. Bones/extrathoracic soft tissue: Unremarkable. IMPRESSION: There is interval progression of bibasilar pneumonia. Dictated by: Dictated on workstation # [id number]
[2022-09-13 09:03] LABS: TOTAL PROTEIN 7.4 GM/DL (6.4-8.2)
[2022-09-13 09:05] LABS: BILIRUBIN,TOTAL 0.8 MG/DL (0.1-1.0)
[2022-09-13 09:07] LABS: CREATININE SERUM 1.36 MG/DL (0.60-1.30)
--- NOTE | 2022-09-13 09:11 | ED General ---
General Chief Complaint: Respiratory Problems Stated Complaint: DIFFICULTY BREATHING Nursing Triage Note: PT AMB TO [facility] WITH COMPLAINT OF WORSENING SOA AND NOT FEELING LIKE HE IS MOVING AIR. STATES HAS BEEN ADMITTED RECENTLY TO THE HOSPITAL FOR FLU/PNEUMONIA AND IS ON HOME OXYGEN. Source of Information: Patient Exam Limitations: No Limitations (DANIEL KAY) History of Present Illness Date Seen by Provider: Sep 13, 2022 Time Seen by Provider: 08:36 Initial Comments 72yo M with h/o recent hospitalizations for PNA and acute respiratory distress presents to the ED with c/o worsening SOB. Pt states that since his admission for PNA 3 weeks ago, pt has been experiencing worsening SOB and LE, noting that he feels like he can no longer get around the house without profound SOB and weakness, stating that last night and this morning he felt like he "couldn't take a deep breath". Pt also have associated chest tightness radiating across chest and worsening cough producing yellow mucus. Pt states pt has been using his 's home O2 with increasing frequency since [place], now stating that he uses it "almost 03/04". Pt notes that he has even needed to use it at night, stating he gets up 15x a night to use it and has been sleeping in his recliner so he can have it near him. Pt states that he uses a wood stove in the home and has been for the past 30yrs. Pt denies any abd pain, nausea, vomiting, fevers, chills, leg swelling, and CP. Associated Systoms: Chest Pain (tightness), Cough (producing yellow mucus), Shortness of Air, Weakness (DANIEL KAY) Initial Comments 72yo M here for dyspnea. Recent admit initially for CHF, PNA on Aug 27. R eadmitted Sep 08 for influenza. Discharged on Aug. Was feeling somewhat better until 2-3 days ago and now getting progressively more SOB, Denies continued fevers. SOB is worse with exertion. No CP. Does has non productive cough. No leg swelling. (BRYANT RANDALL DO) Allergies and Home Medications Allergies Coded Allergies: NKANo Known Allergies (Verified Allergy, Unknown, 07/15/07) Uncoded Allergies: NKDA (Allergy, Mild, 07/15/07) Patient Home Medication List Home Medication List Reviewed: Yes (DANIEL KAY) Acetaminophen (Tylenol Extra Strength) 500 Mg Tablet, 1,000 MG PO Q6H PRN for PAIN, (Reported) Entered as Reported by: ASHISH HARTMAN on 06/22/15 1359 Last Action: Continued Albuterol Sulfate (Ventolin Hfa) 90 Mcg Hfa.aer.ad, 1 PUFF PO Q6H PRN for SHORTNESS OF BREATH, (Reported) Entered as Reported by: CARLOS EDUARDO PATEL on 09/13/22 154 Last Action: Reviewed Aspirin (Aspirin EC) 81 Mg Tablet.dr, 81 MG PO DAILY, (Reported) Entered as Reported by: CARLOS EDUARDO PATEL on 09/08/22 135 Last Action: Continued Atorvastatin Calcium (Atorvastatin Calcium) 40 Mg Tablet, 20 MG PO BID, (Reported) Entered as Reported by: JERRELL HOLLEY on 04/07/17 1204 Last Action: Continued Clopidogrel Bisulfate (Plavix) 75 Mg Tablet, 37.5 MG PO BID, (Reported) Entered as Reported by: MARCI MURRY on 08/20/19 08 Last Action: Continued Famotidine (Famotidine) 20 Mg Tablet, 20 MG PO BID, (Reported) Entered as Reported by: CARLOS EDUARDO PATEL on 09/13/22 1539 Last Action: Continued Furosemide (Furosemide) 80 Mg Tablet, 40 MG PO BID, (Reported) Entered as Reported by: CARLOS EDUARDO PATEL on 09/08/22 135 Last Action: Converted Ibuprofen (Ibuprofen) 200 Mg Tablet, 400 MG PO Q8H PRN for PAIN-MILD (1-4), (Reported) Entered as Reported by: CARLOS EDUARDO PATEL on 09/13/22 1541 Last Action: Held Lisinopril (Lisinopril) 2.5 Mg Tablet, 1.25 MG PO BID, (Reported) Entered as Reported by: MARCI MURRY on 08/20/19 08 Last Action: Converted Metoprolol Tartrate (Metoprolol Tartrate) 25 Mg Tablet, 12.5 MG PO BID, (Reported) Entered as Reported by: CARLOS EDUARDO PATEL on 09/08/22 135 Last Action: Continued Potassium Chloride (Potassium Chloride) 10 Meq Tab.er.prt, 5 MEQ PO BID, (Reported) Entered as Reported by: CARLOS EDUARDO PATEL on 09/08/22 135 Last Action: Reviewed Spironolactone (Spironolactone) 25 Mg Tablet, 12.5 MG PO BID, (Reported) Entered as Reported by: CARLOS EDUARDO PATEL on 09/08/22 1350 Last Action: Continued Discontinued Medications Amoxicillin (Amoxicillin) 500 Mg Tablet, 500 MG PO TID Discontinued Reason: No Longer Taking Prescribed by: STEVEN MONTERO on 08/29/22 0848 Prednisone (Prednisone) 20 Mg Tab, 40 MG PO DAILY@0700 Discontinued Reason: No Longer Taking Prescribed by: STEVEN MONTERO on 08/29/22 0848 Review of Systems Review of Systems Constitutional: No chills, No fever; weakness (with exertion ) EENTM: No ear discharge, No ear pain Respiratory: cough (producing yellow mucus), dyspnea on exertion, short of breath Cardiovascular: chest pain (tightness- not present in room); No edema Gastrointestinal: No abdominal pain, No nausea, No vomiting Genitourinary: No dysuria, No hematuria Musculoskeletal: joint swelling (chronic from RA); No muscle twitching Skin: No change in color, No change in hair/nails Psychiatric/Neurological: Denies Anxiety, Denies Depressed Hematologic/Lymphatic: No Symptoms Reported Immunological/Allergic: no symptoms reported (DANIEL KAY) Past Hrinkbo-Vmstbr-Vbijek Hx Patient Social History Tobacco Use?: No Smoking Status: Former Smoker (10pck yrs, quit "years ago") Use of E-Cig and/or Vaping dev: No Substance use?: No Alcohol type: Hard Liquor (whiskey and soda x2 daily) Alcohol Frequency: Daily (less frequently now since sxs started) Pt feels they are or have been: No (DANIEL KAY) Tobacco Use?: Yes Use of E-Cig and/or Vaping dev: No Substance use?: No Alcohol Use?: No (BRYANT RANDALL DO) Immunizations Up To Date Tetanus Booster (TDap): More than 5yrs (DANIEL KAY) Past Medical History Surgeries: Yes Cardiac, Coronary Stent, Defibrillator, Orthopedic Respiratory: No Currently Using CPAP: No Currently Using BIPAP: No Cardiac: Yes (EF 15% ON CATH 08/2019; DEFIBRILLATOR;STENTS/ANGIOPLASTY;NSTEMI 2014;) Cardiomyopathy, Coronary Artery Disease, Heart Attack, High Cholesterol, Hypertension Neurological: No Reproductive Disorders: No Sexually Transmitted Disease: No HIV/AIDS: No Genitourinary: No Gastrointestinal: No Musculoskeletal: No Arthritis (RA) Endocrine: No HEENT: No Loss of Vision: Denies Hearing Impairment: Hard of Hearing Cancer: No Psychosocial: No Integumentary: No Blood Disorders: No Adverse Reaction/Blood Tranf: No (DANIEL KAY) Family Medical History Reviewed Nursing Family Hx (BRYANT RANDALL DO) Cardiovascular disease 19 FATHER 19 MOTHER G8 BROTHER Completed stroke 19 FATHER Heart Disease (mother, father, and brother), Stroke (father) DEFIBRILLLATOR REPLACED IN MARCH 2017 CARDIAC CATH 08/21/[address] JARRELL: CONCLUSIONS: 1. Coronary artery disease primarily consisting of 90% stenoses within a stented segment of the proximal and mid left anterior descending to which successful balloon angioplasty was carried out with the reduction of stenosis to less than 20%. 2. Patent stent is seen in the proximal portion of the left circumflex. The right coronary artery is dominant and has mild diffuse disease. 3. Marked impairment of global left ventricular systolic function with an ejection fraction of approximately 15% and with posterobasal diaphragmatic and apical akinesis. 4. Elevated left ventricular end-diastolic pressure. DISCUSSION AND RECOMMENDATIONS: Dual antiplatelet therapy is being continued. Treatment for chronic ischemic cardiomyopathy is being continued. He has been hospitalized for observation after today's interventional procedure. Risk factor modification has been reviewed with him. (DANIEL KAY) No Pertinent Family Hx (TONIABRYANT Chung ) Physical Exam Vital Signs Vital Signs - First Documented 09/13/22 09/13/22 07:58 09:35 Temp 36.9 Pulse 98 Resp 16 B/P (MAP) 132/35 (67) Pulse Ox 94 O2 Delivery Room Air O2 Flow Rate 2.00 (TONIABRYANT Rachid NEVES) Vital Signs Capillary Refill : Less Than 3 Seconds (DANIEL KAY) Height, Weight, BMI Height: 5'6.00" Weight: 170lbs. 0.0oz. 77.041477ix; 26.00 BMI Method:Stated General Appearance: No Apparent Distress, Chronically ill HEENT: PERRL/EOMI Respiratory: Rhonci (faint in R base, cleared with pt coughing), Wheezing (intermittent expiratory wheezes R base, cleared with pt coughing) Cardiovascular: Regular Rate, Rhythm, No Murmur, Other (defibrillator L chest wall) Gastrointestinal: Non Tender, Soft Extremity: No Calf Tenderness, No Pedal Edema, Other Neurologic/Psychiatric: Alert, Oriented x3 Skin: Normal Color, Warm/Dry (DANIEL KAY) Progress/Results/Core Measures Suspected Sepsis SIRS Temperature: Pulse: 98 Respiratory Rate: 16 Blood Pressure 132 /35 Mean: 67 (DANIEL KAY) Results/Orders Lab Results Laboratory Tests Test 09/13/22 08:30 Range/Units White Blood Count 6.1 4.3-11.0 10^3/uL Red Blood Count 3.16 L 4.30-5.52 10^6/uL Hemoglobin 10.6 L 13.3-17.7 g/dL Hematocrit 30 L 40-54 % Mean Corpuscular Volume 95 80-99 fL Mean Corpuscular Hemoglobin 34 25-34 pg Mean Corpuscular Hemoglobin Concent 36 32-36 g/dL Red Cell Distribution Width 14.3 10.0-14.5 % Platelet Count 168 130-400 10^3/uL Mean Platelet Volume 9.5 9.0-12.2 fL Immature Granulocyte % (Auto) 1 % Neutrophils (%) (Auto) 72 42-75 % Lymphocytes (%) (Auto) 17 12-44 % Monocytes (%) (Auto) 10 0-12 % Eosinophils (%) (Auto) 0 0-10 % Basophils (%) (Auto) 1 0-10 % Neutrophils # (Auto) 4.4 1.8-7.8 10^3/uL Lymphocytes # (Auto) 1.0 1.0-4.0 10^3/uL Monocytes # (Auto) 0.6 0.0-1.0 10^3/uL Eosinophils # (Auto) 0.0 0.0-0.3 10^3/uL Basophils # (Auto) 0.0 0.0-0.1 10^3/uL Immature Granulocyte # (Auto) 0.1 0.0-0.1 10^3/uL Sodium Level 131 L 135-145 MMOL/L Potassium Level 4.1 3.6-5.0 MMOL/L Chloride Level 99 98-107 MMOL/L Carbon Dioxide Level 20 L 21-32 MMOL/L Anion Gap 12 5-14 MMOL/L Blood Urea Nitrogen 24 H 7-18 MG/DL Creatinine 1.36 H 0.60-1.30 MG/DL Estimat Glomerular Filtration Rate 56 BUN/Creatinine Ratio 18 Glucose Level 115 H 70-105 MG/DL Calcium Level 9.0 8.5-10.1 MG/DL Corrected Calcium 9.6 8.5-10.1 MG/DL Total Bilirubin 0.8 0.1-1.0 MG/DL Aspartate Amino Transf (AST/SGOT) 24 5-34 U/L Alanine Aminotransferase (ALT/SGPT) 22 0-55 U/L Alkaline Phosphatase 68 40-136 U/L Troponin I 0.040 H <0.028 NG/ML C-Reactive Protein High Sensitivity 33.87 H 0.00-0.50 MG/DL B-Type Natriuretic Peptide 554.0 H <100.0 PG/ML Total Protein 7.4 6.4-8.2 GM/DL Albumin 3.3 3.2-4.5 GM/DL SARS-CoV-2 RNA (RT-PCR) Not Detected Not Detecte (BRYANT RANDALL DO) My Orders Orders - BRYANT RANDALL DO Troponin I Mateo (09/13/22 08:27) Chest 1 View, Ap/Pa Only (09/13/22 08:27) Ekg Tracing (09/13/22 08:27) Cbc With Automated Diff (09/13/22 08:27) Bnp [place] (09/13/22 08:27) Comprehensive Metabolic Panel (09/13/22 08:27) Hs C Reactive Protein (09/13/22 08:28) Covid 19 Inhouse Test (09/13/22 08:35) Piperacillin Sodium/Tazobactam (Zosyn Vi (09/13/22 09:45) Vancomycin Injection (Vancomycin Injecti (09/13/22 09:45) Ed Admission (Communication) (09/13/22 09:46) Blood Culture (09/13/22 09:50) (BRYANT RANDALL DO) Vital Signs/I&O 09/13/22 09/13/22 09/13/22 07:58 09:30 09:35 Temp 36.9 Pulse 98 110 103 Resp 16 24 20 B/P (MAP) 132/35 (67) 137/78 (97) Pulse Ox 94 86 99 O2 Delivery Room Air Room Air Nasal Cannula O2 Flow Rate 2.00 (BRYANT RANDALL DO) Vital Signs/I&O Capillary Refill : Less Than 3 Seconds (DANIEL KAY) Blood Pressure Mean: 67 ECG Comment Sinus rhythm with a rate of 95 bpm. Normal intervals. Normal axis. Some slight ST depressions in lead II and T wave inversions in lead III. Slight ST depressions in V5 and V6. Overall EKG is similar to previous. No STEMI. No ectopy. (BRYANT RANDALL DO) Critical Care Note Critical Care Total Time (minutes) 45 (BRYANT RANDALL DO) Departure Communication (Admissions) Patient has significant increased work of breathing. Chest x-ray shows bilateral patchy infiltrates consistent with pneumonia. He does have recent influenza, current COVID test is negative. He is hypoxic, 8788% on room air with significant increased work of breathing and retractions. This is improved with oxygen via nasal cannula. His CRP is significantly elevated. I would think this is related to influenza little that it would be improving by now so concern for bacterial infection. He started on broad-spectrum antibiotics, given his recent hospitalization covered for healthcare associated pneumonia. His troponin is slightly elevated but improved from his previous visit. His BNP has been steadily increasing but is still only in the 500s, I do not think that this is from heart failure at this time. His EKG has no ST elevations but does have some diffuse depressions. I spoke with patient's primary care physician who agrees to admission. (BRYANT RANDALL DO) Impression Primary Impression: HCAP (healthcare-associated pneumonia) Additional Impression: Hypoxia Disposition: ADMITTED INPATIENT Condition: Stable Admissions Decision to Admit Reason: Admit from ER (General) (BRYANT RANDALL DO) Departure-Patient Inst. Referrals: STEVEN MONTERO MD (PCP/Family) Primary Care Physician DANIEL KAY Sep 13, 2022 09:11 BRYANT RANDALL DO Sep 13, 2022 09:27
[2022-09-13] MEDS ORDERED: PIPERACILLIN SODIUM/TAZOBACTAM 4.5 GM in NS (IVPB) 100 ML IV ONE (09:45)
[2022-09-13] MEDS ORDERED: VANCOMYCIN INJECTION 1,000 MG in NS (IVPB) 250 ML IV ONE (09:45)
[2022-09-13] MEDS ORDERED: VANCOMYCIN 500 MG/NS 100 ML IV ONE ×2 (11:00)
[2022-09-13] MEDS: RT-ALBUTEROL/IPRATROPIUM 3 ML (DUONEB) VIAL INH SCH ×3 (15:21→22:32)
[2022-09-13] MEDS ORDERED: FAMO20TA5 PO (15:39)
[2022-09-13] MEDS ORDERED: ALBU8.5H6 PO (15:40)
[2022-09-13] MEDS ORDERED: IBUP-2473 PO (15:41)
--- NOTE | 2022-09-13 16:04 | History & Physical ---
JAYLA BARRAGAN 09/13/22 1604: History of Present Illness History of Present Illness Reason for visit/HPI Mr. Shine is a 72 y/o M with history of recent hospital admission for pneumonia and acute respiratory distress 3 weeks ago, who presented to [facility] ER today with CC of worsening shortness of breath since being disch arged. He reports that he has had to resort to using his 's supplemental oxygen at home. He also states he is short of breath at rest and when sleeping at night, sometimes he states he has to sleep in a recliner to help with his SOA. Patient reports completing antibiotics course as instructed following previous hospitalization for pneumonia. He states that he has continued to have a productive cough with sauceda/green sputum and a runny nose. Patient is currently wearing NC and at 92%. He is visibly SOA while speaking. States the breathing treatments he was given earlier help alleviate some of his shortness of breath. Other PMH includes CAD with stent placement, TN, HTN, HLD, and defibrillator placement. Denies any other previous respiratory history. Date of Admission Sep 13, 2022 at 09:53 Date Seen by a Provider: Sep 13, 2022 Time Seen by a Provider: 16:15 I consulted on this patient on 09/13/22 15:58 Attending Physician Steven Allred MD Admitting Physician Admitting Physician: Steven Allred MD Attending Physician: Steven Allred MD Consult Allergies and Home Medications Allergies Coded Allergies: NKANo Known Allergies (Verified Allergy, Unknown, 07/15/07) Uncoded Allergies: NKDA (Allergy, Mild, 07/15/07) Patient Home Medication List Home Medication List Reviewed: Yes Acetaminophen (Tylenol Extra Strength) 500 Mg Tablet, 1,000 MG PO Q6H PRN for PAIN, (Reported) Entered as Reported by: ASHISH HARTMAN on 06/22/15 1359 Last Action: Continued Albuterol Sulfate (Ventolin Hfa) 90 Mcg Hfa.aer.ad, 1 PUFF PO Q6H PRN for SHORTNESS OF BREATH, (Reported) Entered as Reported by: CARLOS EDUARDO PATEL on 09/13/22 1540 Last Action: Reviewed Aspirin (Aspirin EC) 81 Mg Tablet.dr, 81 MG PO DAILY, (Reported) Entered as Reported by: CARLOS EDUARDO PATEL on 12/29/22 1350 Last Action: Continued Atorvastatin Calcium (Atorvastatin Calcium) 40 Mg Tablet, 20 MG PO BID, (Reported) Entered as Reported by: JERRELL HOLLEY on 04/07/17 1204 Last Action: Continued Clopidogrel Bisulfate (Plavix) 75 Mg Tablet, 37.5 MG PO BID, (Reported) Entered as Reported by: MARCI MURRY on 08/20/19 08 Last Action: Continued Famotidine (Famotidine) 20 Mg Tablet, 20 MG PO BID, (Reported) Entered as Reported by: CARLOS EDUARDO PATEL on 09/13/22 1539 Last Action: Continued Furosemide (Furosemide) 80 Mg Tablet, 40 MG PO BID, (Reported) Entered as Reported by: CARLOS EDUARDO PATEL on 09/08/221349 Last Action: Converted Ibuprofen (Ibuprofen) 200 Mg Tablet, 400 MG PO Q8H PRN for PAIN-MILD (1-4), (Reported) Entered as Reported by: CARLOS EDUARDO PATEL on 09/13/22 1541 Last Action: Held Lisinopril (Lisinopril) 2.5 Mg Tablet, 1.25 MG PO BID, (Reported) Entered as Reported by: MARCI MURRY on 08/20/19806 Last Action: Converted Metoprolol Tartrate (Metoprolol Tartrate) 25 Mg Tablet, 12.5 MG PO BID, (Reported) Entered as Reported by: CARLOS EDUARDO PATEL on 09/08/221349 Last Action: Continued Potassium Chloride (Potassium Chloride) 10 Meq Tab.er.prt, 5 MEQ PO BID, (Reported) Entered as Reported by: CARLOS EDUARDO PATEL on 09/08/221349 Last Action: Reviewed Spironolactone (Spironolactone) 25 Mg Tablet, 12.5 MG PO BID, (Reported) Entered as Reported by: CARLOS EDUARDO PATEL on 09/08/221349 Last Action: Continued Discontinued Medications Amoxicillin (Amoxicillin) 500 Mg Tablet, 500 MG PO TID Discontinued Reason: No Longer Taking Prescribed by: STEVEN ALLRED on 08/29/22 08 Prednisone (Prednisone) 20 Mg Tab, 40 MG PO DAILY@0700 Discontinued Reason: No Longer Taking Prescribed by: STEVEN ALLRED on 08/29/22 0848 Past Konvmkn-Dqtdax-Qlhnab Hx Patient Social History Tobacco Use?: No Smoking Status: Former Smoker (10pck yrs, quit "years ago") Use of E-Cig and/or Vaping dev: No Substance use?: No Alcohol Use?: No Alcohol type: Hard Liquor (whiskey and soda x2 daily) Alcohol Frequency: Daily (less frequently now since sxs started) Pt feels they are or have been: No Immunizations Up To Date Tetanus Booster (TDap): Unknown Hepatitis A: No Hepatitis B: No Current Status Advance Directives: No Communicates: Verbally Primary Language: [place] Preferred Spoken Language: [place] Is interpretation needed?: No Sensory deficits: Vision impairment Implanted or Applied Medical D: Stents Past Medical History Surgeries: Cardiac, Coronary Stent, Defibrillator, Orthopedic Currently Using CPAP: No Currently Using BIPAP: No Cardiomyopathy, Coronary Artery Disease, Heart Attack, High Cholesterol, Hypertension Sexually Transmitted Disease: No HIV/AIDS: No Arthritis (RA) Loss of Vision: Denies Hearing Impairment: Hard of Hearing Blood Disorders: No Adverse Reaction/Blood Tranf: No Family Medical History Reviewed Nursing Family Hx Cardiovascular disease 19 FATHER 19 MOTHER G8 BROTHER Completed stroke 19 FATHER No Pertinent Family Hx DEFIBRILLLATOR REPLACED IN MARCH 2017 CARDIAC CATH 08/21/[address] JARRELL: CONCLUSIONS: 1. Coronary artery disease primarily consisting of 90% stenoses within a stented segment of the proximal and mid left anterior descending to which successful balloon angioplasty was carried out with the reduction of stenosis to less than 20%. 2. Patent stent is seen in the proximal portion of the left circumflex. The right coronary artery is dominant and has mild diffuse disease. 3. Marked impairment of global left ventricular systolic function with an ejection fraction of approximately 15% and with posterobasal diaphragmatic and apical akinesis. 4. Elevated left ventricular end-diastolic pressure. DISCUSSION AND RECOMMENDATIONS: Dual antiplatelet therapy is being continued. Treatment for chronic ischemic cardiomyopathy is being continued. He has been hospitalized for observation after today's interventional procedure. Risk factor modification has been reviewed with him. Review of Systems Respiratory: cough, dyspnea on exertion, phlegm, short of breath Cardiovascular: No chest pain Gastrointestinal: No abdominal pain, No nausea, No vomiting Genitourinary: No dysuria, No hematuria Musculoskeletal: back pain Physical Exam Vital Signs Vital Signs - First Documented 09/13/22 09/13/22 09/13/22 07:58 09:35 12:18 Temp 36.9 Pulse 98 Resp 16 B/P (MAP) 132/35 (67) Pulse Ox 94 O2 Delivery Room Air O2 Flow Rate 2.00 FiO2 21 Capillary Refill : Less Than 3 Seconds Height, Weight, BMI Height: 5'6.00" Weight: 170lbs. 0.0oz. 77.150125fw; 24.78 BMI Method:Stated General Appearance: WD/WN, Mild Distress Eyes: Bilateral Eye Normal Inspection, Bilateral Eye PERRL, Bilateral Eye EOMI Neck: Normal Inspection, Non Tender, Supple Respiratory: Chest Non Tender, Crackles (RLL), Respiratory Distress, Wheezing (right base ) Cardiovascular: Regular Rate, Rhythm, No Murmur, Normal Peripheral Pulses Gastrointestinal: No Organomegaly, Non Tender, Soft Back: Normal Inspection, Other (some lower paravertebral muscle tenderness) Extremity: Normal Range of Motion, Non Tender, No Calf Tenderness, No Pedal Edema Neurologic/Psychiatric: Alert, Oriented x3 Skin: Normal Color, Warm/Dry Lymphatic: No Adenopathy Assessment/Plan Assessment and Plan Healthcare Associated Pneumonia Prior hx of Influenza A CXR shows bilateral lower lobe pnuemonia to be present. IV Zosyn and IV Vanc Hypoxia Oxygen supplementation with NC Recommend Incentive Spirometry Dyspnea Duoneb prn Elevated Troponin Elevated BNP Likely due to CHF and long standing heart disease Last ECHO from June 2022 results show 25-35% EF EKG taken in ER today is similar to previous. No STEMI. CXR shows Cardiac pacemaker/AICD to be stable. Consult Cardiology regarding persistent heart failure symptoms MAT Protocol Monitor with Telemetry Regular Diet SCDs Ambulate Admission Diagnosis HCAP Hypoxia Dyspnea Admission Status: Inpatient Order (span 2 midnights) Reason for Inpatient Admission: HCAP Hypoxia Dyspnea STEVEN ALLRED MD 09/13/222112: History of Present Illness History of Present Illness Reason for visit/HPI Jayme is a 72 y/o male who is known to me from clinic and previous hospitalization. He was admitted for influenza A pneumonia last week, was given appropriate treatment and sent home after a few days. He reports that since his discharge he became increasingly short of breath, was using his 's supplemental oxygen and continued to have more severity in his shortness of breath, thus his return to the hospital. He was found to have an elevated BNP, elevated troponin, and worsening pneumonia on CXR. he was subsequently admitted to the hospital. Date of Admission 09/13/22 Date Seen by a Provider: Sep 13, 2022 Time Seen by a Provider: 20:45 Attending Physician Steven Allred MD Admitting Physician Steven Allred MD Consult cardiology Allergies and Home Medications Allergies Coded Allergies: NKANo Known Allergies (Verified Allergy, Unknown, 07/15/07) Uncoded Allergies: NKDA (Allergy, Mild, 07/15/07) Patient Home Medication List Home Medication List Reviewed: Yes Acetaminophen (Tylenol Extra Strength) 500 Mg Tablet, 1,000 MG PO Q6H PRN for PAIN, (Reported) Entered as Reported by: ASHISH HARTMAN on 06/22/15 1359 Last Action: Continued Albuterol Sulfate (Ventolin Hfa) 90 Mcg Hfa.aer.ad, 1 PUFF PO Q6H PRN for SHORTNESS OF BREATH, (Reported) Entered as Reported by: CARLOS EDUARDO PATEL on 09/13/22 1540 Last Action: Reviewed Aspirin (Aspirin EC) 81 Mg Tablet.dr, 81 MG PO DAILY, (Reported) Entered as Reported by: CARLOS EDUARDO PATEL on 09/08/22 135 Last Action: Continued Atorvastatin Calcium (Atorvastatin Calcium) 40 Mg Tablet, 20 MG PO BID, (Reported) Entered as Reported by: JERRELL HOLLEY on 04/07/17 1204 Last Action: Continued Clopidogrel Bisulfate (Plavix) 75 Mg Tablet, 37.5 MG PO BID, (Reported) Entered as Reported by: MARCI MURRY on 08/20/19 0807 Last Action: Continued Famotidine (Famotidine) 20 Mg Tablet, 20 MG PO BID, (Reported) Entered as Reported by: CARLOS EDUARDO PATEL on 09/13/22 1539 Last Action: Continued Furosemide (Furosemide) 80 Mg Tablet, 40 MG PO BID, (Reported) Entered as Reported by: CARLOS EDUARDO PATEL on 09/08/22 1350 Last Action: Converted Ibuprofen (Ibuprofen) 200 Mg Tablet, 400 MG PO Q8H PRN for PAIN-MILD (1-4), (Reported) Entered as Reported by: CARLOS EDUARDO PATEL on 09/13/22 1541 Last Action: Held Lisinopril (Lisinopril) 2.5 Mg Tablet, 1.25 MG PO BID, (Reported) Entered as Reported by: MARCI MURRY on 08/20/19 0807 Last Action: Converted Metoprolol Tartrate (Metoprolol Tartrate) 25 Mg Tablet, 12.5 MG PO BID, (Reported) Entered as Reported by: CARLOS EDUARDO PATEL on 09/08/221349 Last Action: Continued Potassium Chloride (Potassium Chloride) 10 Meq Tab.er.prt, 5 MEQ PO BID, (Reported) Entered as Reported by: CARLOS EDUARDO PATEL on 09/08/221349 Last Action: Reviewed Spironolactone (Spironolactone) 25 Mg Tablet, 12.5 MG PO BID, (Reported) Entered as Reported by: CARLOS EDUARDO PATEL on 09/08/221349 Last Action: Continued Discontinued Medications Amoxicillin (Amoxicillin) 500 Mg Tablet, 500 MG PO TID Discontinued Reason: No Longer Taking Prescribed by: STEVEN ALLRED on 08/29/22 0848 Prednisone (Prednisone) 20 Mg Tab, 40 MG PO DAILY@0700 Discontinued Reason: No Longer Taking Prescribed by: STEVEN ALLRED on 08/29/22 0848 Past Olwjepa-Cpphsq-Xkaeri Hx Patient Social History Marrital Status: Living Status: lives with spouse in their own home Employed/Student: retired Tobacco Use?: Yes Tobacco type used: Cigarettes Smoking Status: Current Someday Smoker Use of E-Cig and/or Vaping dev: No Alcohol type: Hard Liquor Alcohol Frequency: Daily Current Status Advance Directives: No Communicates: Verbally Primary Language: [place] Preferred Spoken Language: [place] Is interpretation needed?: No Sensory deficits: Hearing impairment Implanted or Applied Medical D: Implantable cardioverter (march 2017) Past Medical History Surgeries: Coronary Stent, Orthopedic COPD Currently Using CPAP: No Currently Using BIPAP: No Heart Attack, High Cholesterol, Hypertension Sexually Transmitted Disease: No HIV/AIDS: No Arthritis Loss of Vision: Denies Hearing Impairment: Hard of Hearing Family Medical History Reviewed Nursing Family Hx Cardiovascular disease 19 FATHER 19 MOTHER G8 BROTHER Completed stroke 19 FATHER Heart Disease, Stroke Review of Systems Constitutional: No chills, No diaphoresis, No fever; malaise, weakness EENTM: No hoarseness, No throat pain Respiratory: cough, dyspnea on exertion, phlegm, short of breath Cardiovascular: No chest pain; Hx of Intervention; No palpitations Gastrointestinal: No abdominal pain, No nausea, No vomiting Genitourinary: No dysuria, No hematuria Musculoskeletal: back pain Skin: no symptoms reported Psychiatric/Neurological: Denies Anxiety, Denies Depressed; Weakness All Other Systems Reviewed Negative Unless Noted: Yes Physical Exam General Appearance: WD/WN; No Anxious; Mild Distress HEENT: PERRL/EOMI Neck: Full Range of Motion, Normal Inspection, Non Tender, Supple Respiratory: Chest Non Tender, Crackles (RLL), Respiratory Distress, Wheezing (right base ) Cardiovascular: Regular Rate, Rhythm, No Murmur, Normal Peripheral Pulses Gastrointestinal: Normal Bowel Sounds, Non Tender, Soft Rectal: Deferred Extremity: Normal Capillary Refill, Normal Inspection, Normal Range of Motion, Non Tender, No Calf Tenderness, Pedal Edema (trace) Neurologic/Psychiatric: Alert, Oriented x3, Normal Mood/Affect Skin: Normal Color, Warm/Dry Lymphatic: No Adenopathy Assessment/Plan Assessment and Plan Acute respiratory failure Acute respiratory distress Pneumonia - hospital acquired Acute on Chronic Congestive heart failure Elevated BNP Hypertension Chronic Coronary artery disease Tobaccoism Chronic Alcohol intake Hyponatremia Acute on Chronic renal failure stage 2 Elevated CRP Anemia Acute respiratory failure with Acute respiratory distress due to Pneumonia - hospital acquired - recent hospitalization for Influenza A - discussed with pt - need to keep him in the hospital for another 2-4 days. - repeat cxr tomorrow - iv vancomycin and zosyn. - mat protocol Acute on Chronic Congestive heart failure with Elevated BNP - consult to cardiology - monitor symptoms closely - lasix bid scheduled. - pt reports that he does not want to be fully coded, avoid intubation. 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 Tobaccoism Chronic Alcohol intake - monitor for withdrawal Hyponatremia - repeat labs in morning. Acute on Chronic renal failure stage 2 - repeat labs, renal adjustment of medications Elevated CRP Anemia - monitor h and h DVT prophyalxis with lovenox and scd's gi prophylaxis with ppi Date of Exam:09/13/22 CHEST 1 VIEW, AP/PA ONLY EXAM: Portable chest x-ray upright view. COMPARISON: Chest x-ray dated 09/08/2022. FINDINGS: Lungs/pleura: There is interval progression of small to moderate amount of lung infiltrates involving the bilateral lower lung field regions. There is no pneumothorax. There is no pleural effusion. Mediastinum: Unremarkable. Pulmonary vasculature: Unremarkable. Heart: Cardiac silhouette is upper limits of normal. Cardiac pacemaker/AICD is again seen, stable. Bones/extrathoracic soft tissue: Unremarkable. IMPRESSION:There is interval progression of bibasilar pneumonia. Admission Diagnosis Acute respiratory failure Acute respiratory distress Pneumonia - hospital acquired Acute on Chronic Congestive heart failure Elevated BNP Hypertension Chronic Coronary artery disease Tobaccoism Chronic Alcohol intake Hyponatremia Acute on Chronic renal failure stage 2 Elevated CRP Anemia Admission Status: Inpatient Order (span 2 midnights) Reason for Inpatient Admission: pt has pneumonia, recurrent hospitalization for respiratory failure - will require at least 3-4 days of admission Supervisory-Addendum Brief Verification & Attestation Participated in pt care: history, MDM, physical Personally performed: exam, history, MDM, supervision of care Care discussed with: Medical Student Procedures: n/a Results interpretation: Verified all documentation see my documentation JAYLA BARRAGAN Sep 13, 2022 16:04 STEVEN ALLRED MD Sep 13, 2022 21:13
--- NOTE | 2022-09-13 17:07 | Consultation-Cardiology ---
HPI-Cardiology Cardiology Consultation Date of Consultation 09/13/22 Date of Admission Time Seen by Provider: 17:02 Indication: Ventricular tachycardia HPI 72-year-old gentleman with history of peripheral arterial disease, recent hospitalization for influenza pneumonia. Patient discharged home, he has returned today due to increasing dyspnea. Denied any chest pain, he uses home oxygen and he has been having worsening dyspnea. Denied any palpitation. No syncope or near syncopal episode. During the hospital stay he was noted to have nonsustained ventricular tachycardia. He was asymptomatic during the episode. Denied any chest pain. Home Medications & Allergies Allergies: Coded Allergies: NKANo Known Allergies (Verified Allergy, Unknown, 07/15/07) Uncoded Allergies: NKDA (Allergy, Mild, 07/15/07) Home Medication List Reviewed: Yes NUN-Omytyd-Icnvav Hx Patient Social History Marital Status: Employed/Student: retired Smoking Status: Former Smoker (10pck yrs, quit "years ago") Type Used: Cigars Recent Hopitalizations: Yes Have you traveled recently?: No Alcohol Use?: No Immunizations Up To Date Tetanus Booster (TDap): More than 5yrs Past Medical History Discussed below Family Medical History Significant Family History: No Pertinent Family Hx Family History: Cardiovascular disease 19 FATHER 19 MOTHER G8 BROTHER Completed stroke 19 FATHER Review of Systems-General Review of Systems Constitutional: see HPI; No chills, No fever; malaise, weakness (with exertion ) EENTM: see HPI; No ear discharge, No ear pain Respiratory: see HPI, cough, dyspnea on exertion, phlegm, short of breath Cardiovascular: see HPI; No chest pain, No edema, No Hx of Intervention, No palpitations, No syncope, No vascular heart diseas, No other Gastrointestinal: see HPI; No abdominal pain, No nausea, No vomiting Genitourinary: see HPI; No dysuria, No hematuria Musculoskeletal: see HPI, back pain Skin: see HPI; No change in color, No change in hair/nails Psychiatric/Neurological: See HPI; Denies Anxiety, Denies Depressed Reviewed Test Results Reviewed Test Results Lab Laboratory Tests Test 09/13/22 08:30 Range/Units White Blood Count 6.1 4.3-11.0 10^3/uL Red Blood Count 3.16 L 4.30-5.52 10^6/uL Hemoglobin 10.6 L 13.3-17.7 g/dL Hematocrit 30 L 40-54 % Mean Corpuscular Volume 95 80-99 fL Mean Corpuscular Hemoglobin 34 25-34 pg Mean Corpuscular Hemoglobin Concent 36 32-36 g/dL Red Cell Distribution Width 14.3 10.0-14.5 % Platelet Count 168 130-400 10^3/uL Mean Platelet Volume 9.5 9.0-12.2 fL Immature Granulocyte % (Auto) 1 % Neutrophils (%) (Auto) 72 42-75 % Lymphocytes (%) (Auto) 17 12-44 % Monocytes (%) (Auto) 10 0-12 % Eosinophils (%) (Auto) 0 0-10 % Basophils (%) (Auto) 1 0-10 % Neutrophils # (Auto) 4.4 1.8-7.8 10^3/uL Lymphocytes # (Auto) 1.0 1.0-4.0 10^3/uL Monocytes # (Auto) 0.6 0.0-1.0 10^3/uL Eosinophils # (Auto) 0.0 0.0-0.3 10^3/uL Basophils # (Auto) 0.0 0.0-0.1 10^3/uL Immature Granulocyte # (Auto) 0.1 0.0-0.1 10^3/uL Sodium Level 131 L 135-145 MMOL/L Potassium Level 4.1 3.6-5.0 MMOL/L Chloride Level 99 98-107 MMOL/L Carbon Dioxide Level 20 L 21-32 MMOL/L Anion Gap 12 5-14 MMOL/L Blood Urea Nitrogen 24 H 7-18 MG/DL Creatinine 1.36 H 0.60-1.30 MG/DL Estimat Glomerular Filtration Rate 56 BUN/Creatinine Ratio 18 Glucose Level 115 H 70-105 MG/DL Calcium Level 9.0 8.5-10.1 MG/DL Corrected Calcium 9.6 8.5-10.1 MG/DL Total Bilirubin 0.8 0.1-1.0 MG/DL Aspartate Amino Transf (AST/SGOT) 24 5-34 U/L Alanine Aminotransferase (ALT/SGPT) 22 0-55 U/L Alkaline Phosphatase 68 40-136 U/L Troponin I 0.040 H <0.028 NG/ML C-Reactive Protein High Sensitivity 33.87 H 0.00-0.50 MG/DL B-Type Natriuretic Peptide 554.0 H <100.0 PG/ML Total Protein 7.4 6.4-8.2 GM/DL Albumin 3.3 3.2-4.5 GM/DL SARS-CoV-2 RNA (RT-PCR) Not Detected Not Detecte Physical Exam Physical Exam Vital Signs Vital Signs - First Documented 09/13/22 09/13/22 09/13/22 07:58 09:35 12:18 Temp 36.9 Pulse 98 Resp 16 B/P (MAP) 132/35 (67) Pulse Ox 94 O2 Delivery Room Air O2 Flow Rate 2.00 FiO2 21 Capillary Refill : Less Than 3 Seconds Height, Weight, BMI Height: 5'6.00" Weight: 170lbs. 0.0oz. 77.563941em; 24.78 BMI Method:Stated General Appearance: WD/WN, Mild Distress Eyes: Bilateral Eye Normal Inspection, Bilateral Eye PERRL, Bilateral Eye EOMI HEENT: PERRL/EOMI Neck: Normal Inspection, Non Tender, Supple Respiratory: Chest Non Tender, Crackles (RLL), Respiratory Distress, Wheezing (right base ) Cardiovascular: Regular Rate, Rhythm, No Murmur, Normal Peripheral Pulses Gastrointestinal: No Organomegaly, Non Tender, Soft Back: Normal Inspection, Other (some lower paravertebral muscle tenderness) Extremity: Normal Range of Motion, Non Tender, No Calf Tenderness, No Pedal Edema Neurologic/Psychiatric: Alert, Oriented x3 Skin: Normal Color, Warm/Dry Lymphatic: No Adenopathy A/P-Cardiology Admission Diagnosis Nonsustained ventricular tachycardia Acute respiratory failure Congestive heart failure, dilated cardiomyopathy, acute on chronic left ventricular systolic dysfunction, ejection fraction 25 to 30%, ischemic cardiomyopathy Non-ST elevation myocardial infarction Assessment/Plan Nonsustained ventricular tachycardia, patient has underlying congestive heart failure with left ventricular systolic dysfunction, ejection fraction 25 to 30%. Has been intolerant to aggressive treatment, I will restart metoprolol and lisinopril and evaluate tolerance and response. Has been maintained on aspirin and Plavix which will be restarted. Acute on chronic respiratory insufficiency. Recent multiple hospitalization for pneumonia and influenza A. Currently decompensating and requiring more oxygen. Congestive heart failure, chronic compensated left ventricular systolic dysfunction, ischemic cardiomyopathy Last echocardiogram was done in June 2022 with ejection fraction 25 to 30%, severe mitral regurgitation, dilated left atrium. Continue to monitor and will add a LifeVest if patient agree Mild elevation in troponin, probably secondary to congestive heart failure, type II myocardial infarction. Conservative management is recommended Coronary artery disease, cardiac catheterization was done in August 2019 with 90% stenosis with stented segment known to be Taxus 2.75 x 28 mm and Promus 2.25 x 12 mm to the proximal and mid LAD had balloon angioplasty with 3 mm balloon with excellent results. The proximal portion of the circumflex artery known to have proximal 2.25 x 16 mm stent that was patent the right coronary artery is dominant with mild diffuse disease. Stress test was done in February 2021 with anterior apical and inferior lateral myocardial infarction without significant ischemia with ejection fraction 21% Patient will require cardiac catheterization possible PTCA due to his ventricular tachycardia History of tobaccoism, reported that he has stopped smoking about 2 weeks ago Abdominal aortic aneurysm CTA was done in June 2022 the aneurysm has increased in size compared to the prior CT a from 2014 it measured 4.3 cm. Hyperlipidemia, monitor lipids Peripheral arterial disease, claudication Patient has been refusing any further work-up. 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 Baseline abnormal EKG that has not changed History of noncompliant with medication Carotid stenosis, Last ultrasound was done in June 2022 with right internal carotid artery 60 to 79%. The left internal carotid artery is chronically occluded. JOSE FIERRO MD Sep 13, 2022 17:07
[2022-09-13] MEDS: PIPERACILLIN SODIUM/TAZOBACTAM 4.5 GM in NS (IVPB) 100 ML IV SCH (18:07)
[2022-09-13] MEDS: SPIRONOLACTONE 25 MG (ALDACTONE) TAB PO SCH (20:13)
[2022-09-13] MEDS: FAMOTIDINE 20 MG (PEPCID) TABLET PO SCH (20:14)
[2022-09-13] MEDS: CLOPIDOGREL 75 MG (PLAVIX) TABLET PO SCH (20:14)
[2022-09-13] MEDS: meTOprolol TARTRATE 25 MG (LOPRESSOR) TABLET PO SCH (20:14)
[2022-09-13] MEDS: lisINopril 5 MG (PRINIVIL) TABLET PO SCH (20:14)
[2022-09-13] MEDS ORDERED: meTOprolol TARTRATE 25 MG (LOPRESSOR) TABLET PO SCH (21:00)
[2022-09-13] MEDS ORDERED: LISINOPRIL 1.25 MG PO SCH (21:00)
[2022-09-13] MEDS ORDERED: FUROSEMIDE 40 MG PO SCH (21:00)
[2022-09-13] MEDS ORDERED: ACETAMINOPHEN 500 MG TAB (TYLENOL) PO PRN (21:15)
[2022-09-13] MEDS ORDERED: FUROSEMIDE 40 MG/4 ML INJ (LASIX) IVP ONE (21:30)
[2022-09-13] MEDS: ENOXAPARIN 40 MG/0.4 ML (LOVENOX) SYR SC SCH (21:48)
[2022-09-14] MEDS: PIPERACILLIN SODIUM/TAZOBACTAM 4.5 GM in NS (IVPB) 100 ML IV SCH ×3 (01:45→18:18)
[2022-09-14 03:10] VITALS: BP 103/67
[2022-09-14] MEDS: RT-ALBUTEROL/IPRATROPIUM 3 ML (DUONEB) VIAL INH SCH ×5 (05:07→21:40)
[2022-09-14 05:25] LABS: HEMATOCRIT 31 % (40-54); HEMOGLOBIN 10.9 g/dL (13.3-17.7); MEAN CORPUSCULAR HEMOGLOBIN 34 pg (25-34); MEAN CORPUSCULAR HGB CONC 36 g/dL (32-36); MEAN CORPUSCULAR VOLUME 95 fL (80-99); PLATELET COUNT 180 10^3/uL (130-400); WHITE BLOOD COUNT 8.9 10^3/uL (4.3-11.0)
[2022-09-14 05:37] LABS: ALBUMIN 3.1 GM/DL (3.2-4.5); POTASSIUM 3.8 MMOL/L (3.6-5.0)
[2022-09-14 05:38] LABS: CALCIUM 9.1 MG/DL (8.5-10.1)
[2022-09-14 05:40] LABS: TOTAL PROTEIN 7.4 GM/DL (6.4-8.2)
[2022-09-14 05:43] LABS: CREATININE SERUM 1.56 MG/DL (0.60-1.30)
[2022-09-14 05:46] LABS: MAGNESIUM 2.1 MG/DL (1.6-2.4)
[2022-09-14 08:05] VITALS: BP 120/60
--- NOTE | 2022-09-14 08:05 | Progress Note ---
Subjective Subjective Date Seen by Provider: Sep 14, 2022 Time Seen by Provider: 07:48 Patient receiving breathing treatment this morning. He is sitting up and states that he feels slightly better. Reports he has been trying to use his incentive spirometer. States he has been drinking fluids and getting up to use the bathroom. Denies any chest pain, but feels short of breath with deep breaths on exam. Sodium today is decreased from 131 to 128 today. O2 sats are 92% on NC. Review of Systems General: No Chills; Fatigue Pulmonary: Dyspnea, Cough Cardiovascular: No: Chest Pain, Palpitations Gastrointestinal: No: Nausea, Vomiting, Abdominal Pain All Other Systems Reviewed All Other Systems Reviewed: Yes Objective Exam Vital Signs Vital Signs Date Time Temp Pulse Resp B/P (MAP) Pulse Ox O2 Delivery O2 Flow Rate FiO2 09/14/22 03:10 36.5 85 20 103/67 (79) 92 Nasal Cannula 4.00 4.00 09/14/22 01:00 74 09/13/22 23:47 36.8 85 20 106/55 (72) 91 Nasal Cannula 4.00 4.00 09/13/22 22:32 94 Nasal Cannula 4.00 09/13/22 20:15 Nasal Cannula 4.00 09/13/22 19:23 37.4 88 20 120/60 (80) 96 Nasal Cannula 4.00 09/13/22 19:00 87 09/13/22 18:39 96 Nasal Cannula 4.00 09/13/22 15:56 36.0 96 22 135/81 (99) 97 Nasal Cannula 4.00 09/13/22 15:49 36.0 97 22 135/81 (99) 96 Nasal Cannula 4.00 09/13/22 15:22 92 Nasal Cannula 4.00 09/13/22 13:07 92 09/13/22 12:45 106 09/13/22 12:18 36.9 98 94 21 09/13/22 10:56 92 09/13/22 10:46 94 Nasal Cannula 3.00 09/13/22 10:46 37.0 90 20 129/70 (89) 94 Nasal Cannula 3.00 09/13/22 10:42 37.0 90 20 129/70 (89) 94 Nasal Cannula 3.00 09/13/22 10:20 103 20 143/75 94 Nasal Cannula 2.00 09/13/22 09:35 103 20 99 Nasal Cannula 2.00 09/13/22 09:30 110 24 137/78 (97) 86 Room Air I & O 09/14/22 07:00 Intake Total 2190 ml Output Total 1085 ml Balance 1105 ml General Appearance: WD/WN; No Anxious; Mild Distress Eyes: Bilateral Eye Normal Inspection, Bilateral Eye PERRL, Bilateral Eye EOMI HEENT: PERRL/EOMI Neck: Full Range of Motion, Normal Inspection, Non Tender, Supple Respiratory: Chest Non Tender, Crackles (RLL), Respiratory Distress, Wheezing (right base ) Cardiovascular: Regular Rate, Rhythm, No Murmur, Normal Peripheral Pulses Gastrointestinal: Normal Bowel Sounds, Non Tender, Soft Back: Normal Inspection, No Vertebral Tenderness Extremity: Normal Capillary Refill, Normal Inspection, Normal Range of Motion, Non Tender, No Calf Tenderness, Pedal Edema (trace) Neurologic/Psychiatric: Alert, Oriented x3, Normal Mood/Affect Skin: Normal Color, Warm/Dry Lymphatic: No Adenopathy Results Lab Laboratory Tests 09/13/22 08:30: White Blood Count 6.1, Red Blood Count 3.16L, Hemoglobin 10.6L, Hematocrit 30L, Mean Corpuscular Volume 95, Mean Corpuscular Hemoglobin 34, Mean Corpuscular Hemoglobin Concent 36, Red Cell Distribution Width 14.3, Platelet Count 168, Mean Platelet Volume 9.5, Immature Granulocyte % (Auto) 1, Neutrophils (%) (Auto) 72, Lymphocytes (%) (Auto) 17, Monocytes (%) (Auto) 10, Eosinophils (%) (Auto) 0, Basophils (%) (Auto) 1, Neutrophils # (Auto) 4.4, Lymphocytes # (Auto) 1.0, Monocytes # (Auto) 0.6, Eosinophils # (Auto) 0.0, Basophils # (Auto) 0.0, Immature Granulocyte # (Auto) 0.1, Sodium Level 131L, Potassium Level 4.1, Chloride Level 99, Carbon Dioxide Level 20L, Anion Gap 12, Blood Urea Nitrogen 24H, Creatinine 1.36H, Estimat Glomerular Filtration Rate 56, BUN/Creatinine Ratio 18, Glucose Level 115H, Calcium Level 9.0, Corrected Calcium 9.6, Total Bilirubin 0.8, Aspartate Amino Transf (AST/SGOT) 24, Alanine Aminotransferase (ALT/SGPT) 22, Alkaline Phosphatase 68, Troponin I 0.040H, C-Reactive Protein High Sensitivity 33.87H, B-Type Natriuretic Peptide 554.0H, Total Protein 7.4, Albumin 3.3, SARS-CoV-2 RNA (RT-PCR) Not Detected 09/14/22 05:17: White Blood Count 8.9, Red Blood Count 3.23L, Hemoglobin 10.9L, Hematocrit 31L, Mean Corpuscular Volume 95, Mean Corpuscular Hemoglobin 34, Mean Corpuscular Hemoglobin Concent 36, Red Cell Distribution Width 14.2, Platelet Count 180, Mean Platelet Volume 10.0, Sodium Level 128L, Potassium Level 3.8, Chloride Level 97L, Carbon Dioxide Level 18L, Anion Gap 13, Blood Urea Nitrogen 22H, Creatinine 1.56H, Estimat Glomerular Filtration Rate 47, BUN/Creatinine Ratio 14, Glucose Level 126H, Calcium Level 9.1, Corrected Calcium 9.8, Total Bilirubin 1.0, Aspartate Amino Transf (AST/SGOT) 30, Alanine Aminotransferase (ALT/SGPT) 22, Alkaline Phosphatase 74, Total Protein 7.4, Albumin 3.1L, Magnesium Level 2.1 Assessment/Plan Assessment/Plan Admission Dx Healthcare Associated Pneumonia Prior hx of Influenza A CXR shows bilateral lower lobe pnuemonia to be present. IV Zosyn and IV Vanc Hypoxia Oxygen supplementation with NC Recommend Incentive Spirometry Dyspnea Duoneb prn Elevated Troponin Elevated BNP Likely due to CHF and long standing heart disease Last ECHO from June 2022 results show 25-35% EF EKG taken in ER today is similar to previous. No STEMI. CXR shows Cardiac pacemaker/AICD to be stable. Consult Cardiology regarding persistent heart failure symptoms MAT Protocol Monitor with Telemetry Regular Diet SCDs Ambulate Assessment and Plan Acute respiratory failure Acute respiratory distress Healthcare Associated Pneumonia Prior hx of Influenza A CXR shows bilateral lower lobe pnuemonia to be present. IV Zosyn and IV Vanc Oxygen supplementation with NC Recommend Incentive Spirometry MAT Protocol Duoneb prn Acute on Chronic Congestive heart failure Chronic Coronary Artery Disease Hypertension Elevated Troponin Elevated BNP Likely due to CHF and long standing heart disease Last ECHO from June 2022 results show 25-35% EF Consult Cardiology regarding persistent heart failure CAD symptoms Likely cardiac catheterization soon Acute on Chronic renal failure stage 2 Continue to monitor renal function Renally dose all medications Tobaccoism Chronic Alcohol intake Hyponatremia Sodium today is down to 128. Will hold off on any free water intake. Anemia Hb today is 10.9, will continue to monitor and transfuse if below 7. Monitor with Telemetry Regular Diet SCDs Ambulate Will likely require home health upon DC Admission Dx Healthcare Associated Pneumonia Prior hx of Influenza A CXR shows bilateral lower lobe pnuemonia to be present. IV Zosyn and IV Vanc Hypoxia Oxygen supplementation with NC Recommend Incentive Spirometry Dyspnea Duoneb prn Elevated Troponin Elevated BNP Likely due to CHF and long standing heart disease Last ECHO from June 2022 results show 25-35% EF EKG taken in ER today is similar to previous. No STEMI. CXR shows Cardiac pacemaker/AICD to be stable. Consult Cardiology regarding persistent heart failure symptoms MAT Protocol Monitor with Telemetry Regular Diet SCDs Ambulate Clinical Quality Measures Admission Status Admission Dx Healthcare Associated Pneumonia Prior hx of Influenza A CXR shows bilateral lower lobe pnuemonia to be present. IV Zosyn and IV Vanc Hypoxia Oxygen supplementation with NC Recommend Incentive Spirometry Dyspnea Duoneb prn Elevated Troponin Elevated BNP Likely due to CHF and long standing heart disease Last ECHO from June 2022 results show 25-35% EF EKG taken in ER today is similar to previous. No STEMI. CXR shows Cardiac pacemaker/AICD to be stable. Consult Cardiology regarding persistent heart failure symptoms MAT Protocol Monitor with Telemetry Regular Diet SCDs Ambulate Supervisory-Addendum Brief Verification & Attestation Participated in pt care: history, MDM, physical Personally performed: exam, history, MDM, supervision of care Care discussed with: Medical Student Procedures: n/a Results interpretation: Verified all documentation Acute respiratory failure Acute respiratory distress Pneumonia - hospital acquired Acute on Chronic Congestive heart failure Elevated BNP Hypertension Chronic Coronary artery disease Tobaccoism Chronic Alcohol intake Hyponatremia Acute on Chronic renal failure stage 2 Elevated CRP Anemia Acute respiratory failure with Acute respiratory distress due to Pneumonia - hospital acquired - repeat cxr tomorrow - iv vancomycin and zosyn. - mat protocol Acute on Chronic Congestive heart failure with Elevated BNP - consult to cardiology - monitor symptoms closely - lasix bid scheduled. - pt reports that he does not want to be fully coded, avoid intubation. Hypertension - monitor symptoms, continue with home regimen Chronic Coronary artery disease - consult to cover cutter. Hyponatremia - worsening repeat labs in morning. - restrict free water Acute on Chronic renal failure stage 2 - repeat labs, renal adjustment of medications Elevated CRP Anemia - monitor h and h DVT prophyalxis with lovenox and scd's gi prophylaxis with ppi JAYLA BARRAGAN Sep 14, 2022 08:05 STEVEN MONTERO MD Sep 14, 2022 20:56
[2022-09-14] MEDS ORDERED: PHARMACY TO DOSE SQ SCH (09:00)
[2022-09-14] MEDS: ASPIRIN E.C. 81 MG (ECOTRIN) TAB PO SCH (09:32)
[2022-09-14] MEDS: PANTOPRAZOLE 40 MG (PROTONIX) TAB PO SCH (09:32)
[2022-09-14] MEDS: SPIRONOLACTONE 25 MG (ALDACTONE) TAB PO SCH ×2 (09:32→20:44)
[2022-09-14] MEDS: lisINopril 5 MG (PRINIVIL) TABLET PO SCH (09:33)
[2022-09-14] MEDS: CLOPIDOGREL 75 MG (PLAVIX) TABLET PO SCH ×2 (09:33→20:44)
[2022-09-14] MEDS: meTOprolol TARTRATE 25 MG (LOPRESSOR) TABLET PO SCH (09:33)
--- NOTE | 2022-09-14 10:03 | Progress Note - Cardiology ---
Cardiology SOAP Progress Note Objective: I&O/Vital Signs 09/14/22 09/14/22 09/14/22 09/14/22 03:10 07:35 07:51 08:00 Temp 36.5 Pulse 85 77 Resp 20 B/P (MAP) 103/67 (79) Pulse Ox 92 94 94 O2 Delivery Nasal Cannula Nasal Cannula Nasal Cannula O2 Flow Rate 4.00 4.00 4.00 4.00 09/14/22 09/14/22 09/14/22 09/14/22 08:05 09:07 11:04 11:15 Temp 36.2 36.2 Pulse 77 136 79 Resp 20 20 B/P (MAP) 120/60 (80) 108/56 (73) Pulse Ox 94 94 94 O2 Delivery Nasal Cannula Nasal Cannula Nasal Cannula O2 Flow Rate 4.00 4.00 4.00 09/14/22 13:07 Pulse 84 09/14/22 00:00 Intake Total 1590 ml Output Total 385 ml Balance 1205 ml Weight (Pounds): 170 Weight (Ounces): 0.0 Weight (Calculated Kilograms): 77.401979 Constitutional: AAO x 3, well-developed, well-nourished Respiratory: No accessory muscle use, No respiratory distress; rhonchi (scattered) Cardiovascular: regular rate-rhythm; No JVD; S1 and S2 Gastrointestional: No tender; soft, round, audible bowel sounds Extremities: no lower extremity edema bilateral Neurologic/Psychiatric: grossly intact (moves all extremities) Skin: No rash on exposed areas, No ulcerations on exposed areas Results/Procedures: Labs Laboratory Tests 09/14/22 05:17: White Blood Count 8.9, Red Blood Count 3.23L, Hemoglobin 10.9L, Hematocrit 31L, Mean Corpuscular Volume 95, Mean Corpuscular Hemoglobin 34, Mean Corpuscular Hemoglobin Concent 36, Red Cell Distribution Width 14.2, Platelet Count 180, Mean Platelet Volume 10.0, Sodium Level 128L, Potassium Level 3.8, Chloride Level 97L, Carbon Dioxide Level 18L, Anion Gap 13, Blood Urea Nitrogen 22H, Creatinine 1.56H, Estimat Glomerular Filtration Rate 47, BUN/Creatinine Ratio 14, Glucose Level 126H, Calcium Level 9.1, Corrected Calcium 9.8, Magnesium Level 2.1, Total Bilirubin 1.0, Aspartate Amino Transf (AST/SGOT) 30, Alanine Aminotransferase (ALT/SGPT) 22, Alkaline Phosphatase 74, Total Protein 7.4, Albumin 3.1L Procedures NAME: SUSAN BYRNES [facility] REC#: [id number] PT STATUS: REG ER : 1950 PHYSICIAN: BRYANT RANDALL DO ADMIT DATE: 09/13/22/ER Signed Date of Exam:09/13/22 CHEST 1 VIEW, AP/PA ONLY CLINICAL INDICATION: Patient with worsening shortness of air and not feeling like he is moving air. Patient states he has been admitted recently to the hospital for flu/pneumonia and is on home oxygen. EXAM: Portable chest x-ray upright view. COMPARISON: Chest x-ray dated 09/08/2022. FINDINGS: Lungs/pleura: There is interval progression of small to moderate amount of lung infiltrates involving the bilateral lower lung field regions. There is no pneumothorax. There is no pleural effusion. Mediastinum: Unremarkable. Pulmonary vasculature: Unremarkable. Heart: Cardiac silhouette is upper limits of normal. Cardiac pacemaker/AICD is again seen, stable. Bones/extrathoracic soft tissue: Unremarkable. IMPRESSION: There is interval progression of bibasilar pneumonia. Dictated by: Dictated on workstation # [id number] Dict: 09/13/22 0857 Trans: 09/13/22918 CVB [id number] Interpreted by: SANTO SUN MD Electronically signed by: SANTO SUN MD 09/13/22918 A/P: Assessment: NSVT on tele of 09-13-21 and 09-14-21 - reviewed per Dr. Ramos - Asymptomatic Acute on chronic respiratory failure - likely multi-factorial d/t pneumonia and acute on chronic systolic CHF and a cute on chronic exacerbation of COPD Acute on chronic systolic CHF Hyponatremia - undetermined etiology - management per medical services Ischemic cm - with EF approx 15% per cardiac cath of 08-20-19 - Echocardiogram of June 2015 showed LVEF 35%. Distal septal and apical akinesis. Mild MR and TR. No evidence of significant valvular stenosis. PASP approx 45mmHg. - Echo of 02/25/21: LVEF 30-35%, grade 1 gustafson dysfunction, anteroseptal and anteroapical akinesis, mod to sev MR, PASP 40-45 mmHg S/p ICD placement by Dr Lynn in 2007 for SCD prophylaxis - which has reached SUSANA on interrogation carried out on 04-05-2017. Pulse gen change on 04/07/17 - Device functioning normally on interrogation of 06/20/22 - Echocardiogram of 06-14-22 showed LVEF 25-30%. Severe MR. LA mod dilated Mild elevation in troponin, probably secondary to congestive heart failure, type II myocardial infarction. Coronary artery disease - cardiac catheterization was done in August 2019 with 90% stenosis with stented segment known to be Taxus 2.75 x 28 mm and Promus 2.25 x 12 mm to the proximal and mid LAD had balloon angioplasty with 3 mm balloon with excellent r esults. The proximal portion of the circumflex artery known to have proximal 2.25 x 16 mm stent that was patent the right coronary artery is dominant with mild diffuse disease. - Stress test was done in February 2021 with anterior apical and inferior lateral myocardial infarction without significant ischemia with ejection fraction 21% - Cardiac cath advised at time of appt on 06-20-2022 (he refused) History of tobaccoism, reported that he has stopped smoking about 2 weeks ago Probable COPD Abdominal aortic aneurysm CTA was done in June 2022 the aneurysm has increased in size compared to the prior CT a from 2014 it measured 4.3 cm. Hyperlipidemia, monitor lipids Peripheral arterial disease, claudication Patient has been refusing any further work-up. 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 Baseline abnormal EKG that has not changed History of noncompliant with medication - reports he has missed several doses of his medications at home over the last several days Carotid stenosis, Last ultrasound was done in June 2022 with right internal carotid artery 60 to 79%. The left internal carotid artery is chronically occluded. Plan: Review of chart for this hospitalization has been done NSVT on tele - asymptomatic - continue DAPT - will consider cardiac cath at a later time once his respiratory condition and renal function has improved Pneumonia - management per medical services ICM - titrate BB - not suitable candidate for ROSELINE at this time d/t worsening renal function Monitor lab - replace electrolytes as indicated Hyponatremia - undetermined etiology - management per medical services Worsening renal function - reduce diuretics and stop ROSELINE (-) Management of pneumonia per medical services JANET SAHNI Sep 14, 2022 10:03
[2022-09-14] MEDS: VANCOMYCIN 1 GM/NS 250 ML IVPB IV SCH ×2 (10:31)
[2022-09-14 11:15] VITALS: BP 108/56
--- NOTE | 2022-09-14 12:56 | Progress Note - Cardiology ---
Cardiology SOAP Progress Note Subjective: Reports shortness of breath with mild activity No cp or palp or syncope No ICD discharges No n/v Gen weakness and malaise are present Notes mild leg swelling Objective: I&O/Vital Signs 09/14/22 09/14/22 09/14/22 09/14/22 01:00 03:10 07:35 07:51 Temp 36.5 Pulse 74 85 77 Resp 20 B/P (MAP) 103/67 (79) Pulse Ox 92 94 O2 Delivery Nasal Cannula Nasal Cannula O2 Flow Rate 4.00 4.00 4.00 09/14/22 09/14/22 09/14/22 09/14/22 08:00 08:05 09:07 11:04 Temp 36.2 Pulse 77 136 Resp 20 B/P (MAP) 120/60 (80) Pulse Ox 94 94 94 O2 Delivery Nasal Cannula Nasal Cannula Nasal Cannula O2 Flow Rate 4.00 4.00 4.00 09/14/22 11:15 Temp 36.2 Pulse 79 Resp 20 B/P (MAP) 108/56 (73) Pulse Ox 94 O2 Delivery Nasal Cannula O2 Flow Rate 4.00 09/14/22 00:00 Intake Total 1590 ml Output Total 385 ml Balance 1205 ml Weight (Pounds): 170 Weight (Ounces): 0.0 Weight (Calculated Kilograms): 77.238039 Constitutional: AAO x 3, well-developed, well-nourished Respiratory: No accessory muscle use, No respiratory distress; rhonchi (scattered) Cardiovascular: regular rate-rhythm; No JVD; S1 and S2 Gastrointestional: No tender; soft, round, audible bowel sounds Extremities: no lower extremity edema bilateral Neurologic/Psychiatric: other (moves all limbs equally) Skin: No rash on exposed areas, No ulcerations on exposed areas Results/Procedures: Labs Laboratory Tests 09/14/22 05:17: White Blood Count 8.9, Red Blood Count 3.23L, Hemoglobin 10.9L, Hematocrit 31L, Mean Corpuscular Volume 95, Mean Corpuscular Hemoglobin 34, Mean Corpuscular Hemoglobin Concent 36, Red Cell Distribution Width 14.2, Platelet Count 180, Mean Platelet Volume 10.0, Sodium Level 128L, Potassium Level 3.8, Chloride Level 97L, Carbon Dioxide Level 18L, Anion Gap 13, Blood Urea Nitrogen 22H, Creatinine 1.56H, Estimat Glomerular Filtration Rate 47, BUN/Creatinine Ratio 14, Glucose Level 126H, Calcium Level 9.1, Corrected Calcium 9.8, Magnesium Level 2.1, Total Bilirubin 1.0, Aspartate Amino Transf (AST/SGOT) 30, Alanine Aminotransferase (ALT/SGPT) 22, Alkaline Phosphatase 74, Total Protein 7.4, Albumin 3.1L Laboratory Tests 09/13/22 08:30 09/14/22 05:17 A/P: Assessment: NSVT on tele of 09-13-21 and 09-14-21 - Asymptomatic Acute on chronic respiratory failure - likely multi-factorial d/t pneumonia and acute on chronic systolic CHF and acute on chronic exacerbation of COPD Acute on chronic systolic CHF Hyponatremia - undetermined etiology - management per medical services Ischemic cm - with EF approx 15% per cardiac cath of 08-20-19 - Echocardiogram of June 2015 showed LVEF 35%. Distal septal and apical akinesis. Mild MR and TR. No evidence of significant valvular stenosis. PASP approx 45mmHg. - Echo of 02/25/21: LVEF 30-35%, grade 1 gustafson dysfunction, anteroseptal and anteroapical akinesis, mod to sev MR, PASP 40-45 mmHg S/p ICD placement by Dr Lynn in 2007 for SCD prophylaxis - which has reached SUSANA on interrogation carried out on 04-05-2017. Pulse gen change on 04/07/17 - Device functioning normally on interrogation of 06/20/22 - Echocardiogram of 06-14-22 showed LVEF 25-30%. Severe MR. LA mod dilated Mild elevation in troponin, probably secondary to congestive heart failure, type II myocardial infarction. Coronary artery disease - cardiac catheterization was done in August 2019 with 90% stenosis with stented segment known to be Taxus 2.75 x 28 mm and Promus 2.25 x 12 mm to the proximal and mid LAD had balloon angioplasty with 3 mm balloon with excellent results. The proximal portion of the circumflex artery known to have proximal 2.25 x 16 mm stent that was patent the right coronary artery is dominant with mild diffuse disease. - Stress test was done in February 2021 with anterior apical and inferior lateral myocardial infarction without significant ischemia with ejection fraction 21% - Cardiac cath advised at time of appt on 06-20-2022 (he refused) History of tobaccoism, reported that he has stopped smoking about 2 weeks ago Probable COPD Abdominal aortic aneurysm CTA was done in June 2022 the aneurysm has increased in size compared to the prior CT a from 2014 it measured 4.3 cm. Hyperlipidemia, monitor lipids Peripheral arterial disease, claudication Patient has been refusing any further work-up. 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 Baseline abnormal EKG that has not changed History of noncompliant with medication - reports he has missed several doses of his medications at home over the last several days Carotid stenosis, Last ultrasound was done in June 2022 with right internal carotid artery 60 to 79%. The left internal carotid artery is chronically occluded. Plan: I interviewed and examined him and reviewed his records Complex management due to multiple comorbidities NSVT on tele - asymptomatic - continue DAPT - will consider cardiac cath at a later time once his respiratory condition and renal function has improved Pneumonia - management per medical services ICM - titrate BB - not suitable candidate for ROSELINE at this time d/t worsening renal function Monitor lab - replace electrolytes as indicated Hyponatremia - undetermined etiology - management per medical services Worsening renal function - reduce diuretics and stop ROSELINE (-) Management of pneumonia per medical services YAHIR JARRELL MD FACP FAC CCDS Sep 14, 2022 12:55
[2022-09-14 16:48] VITALS: BP 124/66
[2022-09-14] MEDS ORDERED: FUROSEMIDE 40 MG (LASIX) TAB PO SCH (17:30)
[2022-09-14 20:08] VITALS: BP 103/56
[2022-09-14] MEDS: meTOprolol TARTRATE 50 MG (LOPRESSOR) TAB PO SCH (20:43)
[2022-09-14] MEDS: FAMOTIDINE 20 MG (PEPCID) TABLET PO SCH (20:44)
[2022-09-14] MEDS: ENOXAPARIN 40 MG/0.4 ML (LOVENOX) SYR SC SCH (20:44)
[2022-09-14 23:55] VITALS: BP 102/51
[2022-09-15] MEDS: PIPERACILLIN SODIUM/TAZOBACTAM 4.5 GM in NS (IVPB) 100 ML IV SCH ×3 (01:44→17:50)
[2022-09-15] MEDS: RT-ALBUTEROL/IPRATROPIUM 3 ML (DUONEB) VIAL INH SCH ×5 (02:37→19:38)
[2022-09-15 04:00] VITALS: BP 95/52
[2022-09-15 06:26] LABS: CALCIUM 8.7 MG/DL (8.5-10.1); CREATININE SERUM 1.45 MG/DL (0.60-1.30); MAGNESIUM 2.1 MG/DL (1.6-2.4); POTASSIUM 3.6 MMOL/L (3.6-5.0)
[2022-09-15] MEDS: PANTOPRAZOLE 40 MG (PROTONIX) TAB PO SCH (06:32)
--- NOTE | 2022-09-15 07:41 | Progress Note ---
Subjective Subjective Date Seen by Provider: Sep 15, 2022 Time Seen by Provider: 08:13 Patient is eating breakfast this AM. Reports his shortness of breath has improved. He does state that he has some left sided chest pain with deep breathing. He rates it at 3 out of 10 and states it is tolerable. He also reports trying to eat more but is "just not feeling hungry". Review of Systems General: No Chills; Fatigue Pulmonary: Dyspnea, Cough Cardiovascular: Chest Pain (pleuritic); No: Palpitations Gastrointestinal: No: Nausea, Vomiting, Abdominal Pain All Other Systems Reviewed All Other Systems Reviewed: Yes Objective Exam Vital Signs Vital Signs Date Time Temp Pulse Resp B/P (MAP) Pulse Ox O2 Delivery O2 Flow Rate FiO2 09/15/22 04:00 36.4 80 20 95/52 (66) 92 Nasal Cannula 4.00 09/15/22 02:37 96 Nasal Cannula 4.00 09/15/22 01:00 84 09/14/22 23:55 37.3 86 20 102/51 (68) 94 Nasal Cannula 4.00 09/14/22 21:40 95 Nasal Cannula 4.00 09/14/22 21:00 Nasal Cannula 4.00 09/14/22 20:08 37.3 100 16 103/56 (72) 93 Nasal Cannula 4.00 09/14/22 19:00 96 09/14/22 18:33 94 Nasal Cannula 4.00 09/14/22 16:48 36.6 97 16 124/66 (85) 94 Nasal Cannula 4.00 09/14/22 13:07 84 09/14/22 11:15 36.2 79 20 108/56 (73) 94 Nasal Cannula 4.00 09/14/22 11:04 94 Nasal Cannula 4.00 09/14/22 09:07 136 09/14/22 08:05 36.2 77 20 120/60 (80) 94 Nasal Cannula 4.00 09/14/22 08:00 94 Nasal Cannula 4.00 09/14/22 07:51 77 I & O 09/15/22 07:00 Intake Total 1780 ml Balance 1780 ml General Appearance: WD/WN; No Anxious; Mild Distress Eyes: Bilateral Eye Normal Inspection, Bilateral Eye PERRL, Bilateral Eye EOMI HEENT: PERRL/EOMI Neck: Full Range of Motion, Normal Inspection, Non Tender, Supple Respiratory: Chest Non Tender, Crackles (RLL), Respiratory Distress, Wheezing (throughout bilateral upper lobes) Cardiovascular: Regular Rate, Rhythm, No Murmur, Normal Peripheral Pulses Gastrointestinal: Normal Bowel Sounds, Non Tender, Soft Back: Normal Inspection, No Vertebral Tenderness Extremity: Normal Capillary Refill, Normal Inspection, Normal Range of Motion, Non Tender, No Calf Tenderness, Pedal Edema (trace) Neurologic/Psychiatric: Alert, Oriented x3, Normal Mood/Affect Skin: Normal Color, Warm/Dry Lymphatic: No Adenopathy Results Lab Laboratory Tests 09/15/22 05:50: Sodium Level 131L, Potassium Level 3.6, Chloride Level 101, Carbon Dioxide Level 19L, Anion Gap 11, Blood Urea Nitrogen 24H, Creatinine 1.45H, Estimat Glomerular Filtration Rate 52, BUN/Creatinine Ratio 17, Glucose Level 108H, Calcium Level 8.7, Magnesium Level 2.1, Thyroid Stimulating Hormone (TSH) 0.39 Microbiology 09/13/22 Blood Culture - Preliminary, Resulted No growth Assessment/Plan Assessment/Plan Admission Dx Healthcare Associated Pneumonia Hypoxia Dyspnea Assessment and Plan Acute respiratory failure with Acute respiratory distress due to Pneumonia - hospital acquired - repeat cxr tomorrow - iv vancomycin and zosyn. - mat protocol Acute on Chronic Congestive heart failure with Elevated BNP - consult to cardiology - monitor symptoms closely - lasix bid scheduled. - pt reports that he does not want to be fully coded, avoid intubation. Hypertension - monitor symptoms, continue with home regimen, titrating beta blockers and will hold off on ACEi until renal function improves Chronic Coronary artery disease - consult to zipper slide attacher. Will consider repeat cath once respiratory and renal conditions have improved. Hyponatremia - Sodium improving today, up from 128 yesterday to 131 today - restricting free water Acute on Chronic renal failure stage 2 - renal adjustment of medications DVT prophyalxis with lovenox and scd's gi prophylaxis with ppi Admission Dx Healthcare Associated Pneumonia Prior hx of Influenza A CXR shows bilateral lower lobe pnuemonia to be present. IV Zosyn and IV Vanc Hypoxia Oxygen supplementation with NC Recommend Incentive Spirometry Dyspnea Duoneb prn Elevated Troponin Elevated BNP Likely due to CHF and long standing heart disease Last ECHO from June 2022 results show 25-35% EF EKG taken in ER today is similar to previous. No STEMI. CXR shows Cardiac pacemaker/AICD to be stable. Consult Cardiology regarding persistent heart failure symptoms MAT Protocol Monitor with Telemetry Regular Diet SCDs Ambulate Clinical Quality Measures Admission Status Admission Dx Healthcare Associated Pneumonia Prior hx of Influenza A CXR shows bilateral lower lobe pnuemonia to be present. IV Zosyn and IV Vanc Hypoxia Oxygen supplementation with NC Recommend Incentive Spirometry Dyspnea Duoneb prn Elevated Troponin Elevated BNP Likely due to CHF and long standing heart disease Last ECHO from June 2022 results show 25-35% EF EKG taken in ER today is similar to previous. No STEMI. CXR shows Cardiac pacemaker/AICD to be stable. Consult Cardiology regarding persistent heart failure symptoms MAT Protocol Monitor with Telemetry Regular Diet SCDs Ambulate Supervisory-Addendum Brief Verification & Attestation Participated in pt care: history, MDM, physical Personally performed: exam, history, MDM, supervision of care Care discussed with: Medical Student Procedures: n/a Results interpretation: Verified all documentation agree with student note as documented. Acute respiratory failure Acute respiratory distress Pneumonia - hospital acquired Acute on Chronic Congestive heart failure Elevated BNP Hypertension Chronic Coronary artery disease Tobaccoism Chronic Alcohol intake Hyponatremia Acute on Chronic renal failure stage 2 Elevated CRP Anemia Acute respiratory failure with Acute respiratory distress due to Pneumonia - hospital acquired - repeat cxr again - anticipate improvement to continue on imaging with current treatment with IV antibiotics - iv vancomycin and zosyn. - mat protocol Acute on Chronic Congestive heart failure with Elevated BNP - consult to cardiology - monitor symptoms closely - lasix bid scheduled. - pt reports that he does not want to be fully coded, avoid intubation. Hypertension - monitor symptoms, continue with home regimen Chronic Coronary artery disease - consult to zipper slide attacher. Hyponatremia - improving - continue to repeat labs in morning. - restrict free water Acute on Chronic renal failure stage 2 - repeat labs, renal adjustment of medications Anemia - monitor h and h DVT prophyalxis with lovenox and scd's gi prophylaxis with ppi JAYLA BARRAGAN Sep 15, 2022 07:41 STEVEN MONTERO MD Sep 16, 2022 21:16
[2022-09-15 07:49] VITALS: BP 96/55
--- NOTE | 2022-09-15 08:49 | Progress Note - Cardiology ---
Cardiology SOAP Progress Note Objective: I&O/Vital Signs 09/14/22 09/15/22 09/15/22 09/15/22 23:55 01:00 02:37 04:00 Temp 37.3 36.4 Pulse 86 84 80 Resp 20 20 B/P (MAP) 102/51 (68) 95/52 (66) Pulse Ox 94 96 92 O2 Delivery Nasal Cannula Nasal Cannula Nasal Cannula O2 Flow Rate 4.00 4.00 4.00 09/15/22 09/15/22 09/15/22 07:00 07:49 08:00 Temp 36.6 Pulse 79 83 Resp 18 B/P (MAP) 96/55 (69) Pulse Ox 91 O2 Delivery Nasal Cannula Nasal Cannula O2 Flow Rate 4.00 4.00 09/15/22 00:00 Intake Total 1580 ml Balance 1580 ml Weight (Pounds): 170 Weight (Ounces): 0.0 Weight (Calculated Kilograms): 77.011693 Constitutional: AAO x 3, well-developed, well-nourished Respiratory: No accessory muscle use, No respiratory distress; rhonchi (scattered), other (diminished lower lobes) Cardiovascular: regular rate-rhythm; No JVD; S1 and S2 Gastrointestional: No tender; soft, round, audible bowel sounds Extremities: no lower extremity edema bilateral Neurologic/Psychiatric: other (moves all limbs equally) Skin: No rash on exposed areas, No ulcerations on exposed areas Results/Procedures: Labs Laboratory Tests 09/15/22 05:50: Sodium Level 131L, Potassium Level 3.6, Chloride Level 101, Carbon Dioxide Level 19L, Anion Gap 11, Blood Urea Nitrogen 24H, Creatinine 1.45H, Estimat Glomerular Filtration Rate 52, BUN/Creatinine Ratio 17, Glucose Level 108H, Calcium Level 8.7, Magnesium Level 2.1, Thyroid Stimulating Hormone (TSH) 0.39 09/15/22 09:25: Vancomycin Level Trough 7.5L Microbiology 09/13/22 Blood Culture - Preliminary, Resulted No growth A/P: Assessment: NSVT on tele of 09-13-21 and 09-14-21 - Asymptomatic Acute on chronic respiratory failure - likely multi-factorial d/t pneumonia and acute on chronic systolic CHF and acute on chronic exacerbation of COPD Acute on chronic systolic CHF - clinically improved Hyponatremia - undetermined etiology - management per medical services Ischemic cm - with EF approx 15% per cardiac cath of 08-20-19 - Echocardiogram of June 2015 showed LVEF 35%. Distal septal and apical akinesis. Mild MR and TR. No evidence of significant valvular stenosis. PASP approx 45mmHg. - Echo of 02/25/21: LVEF 30-35%, grade 1 gustafson dysfunction, anteroseptal and anteroapical akinesis, mod to sev MR, PASP 40-45 mmHg S/p ICD placement by Dr Lynn in 2007 for SCD prophylaxis - which has reached SUSANA on interrogation carried out on 04-05-2017. Pulse gen change on 04/07/17 - Device functioning normally on interrogation of 06/20/22 - Echocardiogram of 06-14-22 showed LVEF 25-30%. Severe MR. LA mod dilated Mild elevation in troponin, probably secondary to congestive heart failure, type II myocardial infarction. Coronary artery disease - cardiac catheterization was done in August 2019 with 90% stenosis with stented segment known to be Taxus 2.75 x 28 mm and Promus 2.25 x 12 mm to the proximal and mid LAD had balloon angioplasty with 3 mm balloon with excellent results. The proximal portion of the circumflex artery known to have proximal 2.25 x 16 mm stent that was patent the right coronary artery is dominant with mild diffuse disease. - Stress test was done in February 2021 with anterior apical and inferior lateral myocardial infarction without significant ischemia with ejection fraction 21% - Cardiac cath advised at time of appt on 06-20-2022 (he refused) History of tobaccoism, reported that he has stopped smoking about 2 weeks ago Probable COPD Abdominal aortic aneurysm CTA was done in June 2022 the aneurysm has increased in size compared to the prior CT a from 2015 it measured 4.3 cm. Hyperlipidemia, monitor lipids Peripheral arterial disease, claudication Patient has been refusing any further work-up. 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 Baseline abnormal EKG that has not changed History of noncompliant with medication - reports he has missed several doses of his medications at home over the last several days Carotid stenosis, Last ultrasound was done in June 2022 with right internal carotid artery 60 to 79%. The left internal carotid artery is chronically occluded. Plan: Complex management due to multiple comorbidities NSVT on tele - no further episodes - asymptomatic - continue DAPT - will consider cardiac cath at a later time once his respiratory condition and renal function has improved Pneumonia - management per medical services ICM - titrate BB - not suitable candidate for ROSELINE at this time d/t worsening renal function Monitor lab - replace electrolytes as indicated Hyponatremia - undetermined etiology - management per medical services - improving Renal function improving following cessation of ROSELINE and reduction of diuretics Management of pneumonia per medical services JANET SAHNI [facility] Sep 15, 2022 08:49
[2022-09-15] MEDS: ASPIRIN E.C. 81 MG (ECOTRIN) TAB PO SCH (09:22)
[2022-09-15] MEDS: SPIRONOLACTONE 25 MG (ALDACTONE) TAB PO SCH ×2 (09:22→19:43)
[2022-09-15] MEDS: FUROSEMIDE 40 MG (LASIX) TAB PO SCH (09:22)
--- NOTE | 2022-09-15 09:22 | Progress Note - Cardiology ---
Cardiology SOAP Progress Note Subjective: Gen malaise and weakness present Shortness of breath with activity No n/v/d No cp or palp or syncope No swelling No focal weakness Objective: I&O/Vital Signs 09/14/22 09/14/22 09/15/22 09/15/22 21:40 23:55 01:00 02:37 Temp 37.3 Pulse 86 84 Resp 20 B/P (MAP) 102/51 (68) Pulse Ox 95 94 96 O2 Delivery Nasal Cannula Nasal Cannula Nasal Cannula O2 Flow Rate 4.00 4.00 4.00 09/15/22 09/15/22 09/15/22 04:00 07:00 07:49 Temp 36.4 36.6 Pulse 80 79 83 Resp 20 18 B/P (MAP) 95/52 (66) 96/55 (69) Pulse Ox 92 91 O2 Delivery Nasal Cannula Nasal Cannula O2 Flow Rate 4.00 4.00 09/15/22 00:00 Intake Total 1580 ml Balance 1580 ml Weight (Pounds): 170 Weight (Ounces): 0.0 Weight (Calculated Kilograms): 77.958487 Constitutional: AAO x 3, well-developed, well-nourished Respiratory: No accessory muscle use, No respiratory distress; rhonchi (scattered), other (diminished lower lobes) Cardiovascular: regular rate-rhythm; No JVD; S1 and S2 Gastrointestional: No tender; soft, round, audible bowel sounds Extremities: no lower extremity edema bilateral Neurologic/Psychiatric: other (moves all limbs equally) Skin: No rash on exposed areas, No ulcerations on exposed areas Results/Procedures: Labs Laboratory Tests 09/15/22 05:50: Sodium Level 131L, Potassium Level 3.6, Chloride Level 101, Carbon Dioxide Level 19L, Anion Gap 11, Blood Urea Nitrogen 24H, Creatinine 1.45H, Estimat Glomerular Filtration Rate 52, BUN/Creatinine Ratio 17, Glucose Level 108H, Calcium Level 8.7, Magnesium Level 2.1, Thyroid Stimulating Hormone (TSH) 0.39 Microbiology 09/13/22 Blood Culture - Preliminary, Resulted No growth Laboratory Tests 09/14/22 05:17 09/15/22 05:50 A/P: Assessment: NSVT on tele of 09-13-21 and 09-14-21 - Asymptomatic Acute on chronic respiratory failure - likely multi-factorial d/t pneumonia and acute on chronic systolic CHF and acute on chronic exacerbation of COPD Acute on chronic systolic CHF - clinically improved Hyponatremia - undetermined etiology - management per medical services Ischemic cm - with EF approx 15% per cardiac cath of 08-20-19 - Echocardiogram of June 2015 showed LVEF 35%. Distal septal and apical akinesis. Mild MR and TR. No evidence of significant valvular stenosis. PASP approx 45mmHg. - Echo of 02/25/21: LVEF 30-35%, grade 1 gustafson dysfunction, anteroseptal and anteroapical akinesis, mod to sev MR, PASP 40-45 mmHg S/p ICD placement by Dr Lynn in 2007 for SCD prophylaxis - which has reached SUSANA on interrogation carried out on 04-05-2017. Pulse gen change on 04/07/17 - Device functioning normally on interrogation of 06/20/22 - Echocardiogram of 06-14-22 showed LVEF 25-30%. Severe MR. LA mod dilated Mild elevation in troponin, probably secondary to congestive heart failure, type II myocardial infarction. Coronary artery disease - cardiac catheterization was done in August 2019 with 90% stenosis with stented segment known to be Taxus 2.75 x 28 mm and Promus 2.25 x 12 mm to the proximal and mid LAD had balloon angioplasty with 3 mm balloon with excellent results. The proximal portion of the circumflex artery known to have proximal 2.25 x 16 mm stent that was patent the right coronary artery is dominant with mild diffuse disease. - Stress test was done in February 2021 with anterior apical and inferior lateral myocardial infarction without significant ischemia with ejection fraction 21% - Cardiac cath advised at time of appt on 06-20-2022 (he refused) History of tobaccoism, reported that he has stopped smoking about 2 weeks ago Probable COPD Abdominal aortic aneurysm CTA was done in June 2022 the aneurysm has increased in size compared to the prior CT a from 2014 it measured 4.3 cm. Hyperlipidemia, monitor lipids Peripheral arterial disease, claudication Patient has been refusing any further work-up. 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 Baseline abnormal EKG that has not changed History of noncompliant with medication - reports he has missed several doses of his medications at home over the last several days Carotid stenosis, Last ultrasound was done in June 2022 with right internal carotid artery 60 to 79%. The left internal carotid artery is chronically occluded. Plan: Complex management due to multiple comorbidities NSVT on tele - no further episodes after increase in bb. No evidence of ACS. ICD in place. Have discussed cath with him. He wishes to be managed conservatively Management of pneumonia is with the Med Svce Consider adding ROSELINE-inhib back to the regimen in renal function and bp stay stable HypoNa has improved after reduction in diuretics Monitor labs I discussed his case with Dr Allred this am YAHIR JARRELL MD FACP FAC [facility] Sep 15, 2022 09:22
[2022-09-15] MEDS: meTOprolol TARTRATE 50 MG (LOPRESSOR) TAB PO SCH ×2 (09:23→19:41)
[2022-09-15] MEDS: CLOPIDOGREL 75 MG (PLAVIX) TABLET PO SCH ×2 (09:23→19:42)
--- NOTE | 2022-09-15 09:24 | Diagnostic Imaging Report ---
INDICATION: Pneumonia. Time of Exam: 9:15 AM Comparison is made with prior chest from 09/13/2022. Heart size stable. Cardiac defibrillator remains in place. Bilateral, predominantly lower lobe airspace pulmonary infiltrates persist. There does appear to be some partial clearing since exam 2 days earlier. Right suprahilar infiltrate persists as well. No significant effusion is seen. There is no pneumothorax. IMPRESSION: Bilateral infiltrates consistent with pneumonia. These do show some mild improvement when compared with exam 2 days earlier. Dictated by: Dictated on workstation # [id number]
[2022-09-15] MEDS ORDERED: TROUGH ORDER-PHARMACY XX ONE (10:00)
[2022-09-15 11:27] VITALS: BP 113/70
[2022-09-15] MEDS: VANCOMYCIN 1 GM/NS 250 ML IVPB IV SCH ×2 (12:25)
[2022-09-15 15:49] VITALS: BP 103/56
[2022-09-15 19:21] VITALS: BP 99/55
[2022-09-15] MEDS: FAMOTIDINE 20 MG (PEPCID) TABLET PO SCH (19:43)
[2022-09-15] MEDS: ENOXAPARIN 40 MG/0.4 ML (LOVENOX) SYR SC SCH (19:44)
[2022-09-16] VITALS (8 sets, daily range): BP systolic 97–133; BP diastolic 56–81
[2022-09-16] MEDS: PIPERACILLIN SODIUM/TAZOBACTAM 4.5 GM in NS (IVPB) 100 ML IV SCH ×3 (01:23→17:24)
[2022-09-16] MEDS: RT-ALBUTEROL/IPRATROPIUM 3 ML (DUONEB) VIAL INH SCH ×6 (03:20→22:31)
[2022-09-16] MEDS: PANTOPRAZOLE 40 MG (PROTONIX) TAB PO SCH (05:47)
[2022-09-16 05:57] LABS: CALCIUM 8.8 MG/DL (8.5-10.1); CREATININE SERUM 1.41 MG/DL (0.60-1.30); POTASSIUM 3.8 MMOL/L (3.6-5.0)
[2022-09-16] MEDS: CLOPIDOGREL 75 MG (PLAVIX) TABLET PO SCH ×2 (09:16→20:40)
[2022-09-16] MEDS: ASPIRIN E.C. 81 MG (ECOTRIN) TAB PO SCH (09:16)
[2022-09-16] MEDS: FUROSEMIDE 40 MG (LASIX) TAB PO SCH (09:16)
[2022-09-16] MEDS: meTOprolol TARTRATE 50 MG (LOPRESSOR) TAB PO SCH ×2 (09:17→20:41)
[2022-09-16] MEDS: SPIRONOLACTONE 25 MG (ALDACTONE) TAB PO SCH ×2 (09:17→20:41)
[2022-09-16] MEDS ORDERED: VANCOMYCIN 1250 MG/NS 250 ML IVPB IV SCH ×2 (11:00)
[2022-09-16] MEDS ORDERED: VANCOMYCIN INJECTION 1,250 MG in NS (IVPB) 250 ML IV SCH (11:00)
--- NOTE | 2022-09-16 14:55 | Progress Note - Cardiology ---
Cardiology SOAP Progress Note Subjective: Shortness of breath is slowly improving Still has cough, mostly dry Chest discomfort only with coughing Gen malaise present No n/v/d No palp or syncope Objective: I&O/Vital Signs 09/16/22 09/16/22 09/16/22 09/16/22 03:20 04:10 07:00 07:49 Temp 36.8 Pulse 85 83 Resp 18 B/P (MAP) 109/57 (74) Pulse Ox 95 91 92 O2 Delivery Nasal Cannula Nasal Cannula Nasal Cannula O2 Flow Rate 4.00 3.00 4.00 09/16/22 09/16/22 09/16/22 09/16/22 07:53 08:00 09:00 09:09 Temp 36.6 36.6 Pulse 84 84 Resp 18 B/P (MAP) 97/56 (70) Pulse Ox 96 92 O2 Delivery Nasal Cannula Room Air Nasal Cannula O2 Flow Rate 3.00 4.00 FiO2 32 09/16/22 09/16/22 09/16/22 11:14 12:00 12:59 Temp 36.7 Pulse 75 80 Resp 18 B/P (MAP) 110/58 (75) Pulse Ox 95 93 O2 Delivery Room Air Room Air O2 Flow Rate 0.00 09/16/22 00:00 Intake Total 1500 ml Output Total 400 ml Balance 1100 ml Weight (Pounds): 170 Weight (Ounces): 0.0 Weight (Calculated Kilograms): 77.432179 Constitutional: AAO x 3, well-developed, well-nourished Respiratory: No accessory muscle use, No respiratory distress; rhonchi (scattered), other (diminished lower lobes) Cardiovascular: regular rate-rhythm; No JVD; S1 and S2 Gastrointestional: No tender; soft, round, audible bowel sounds Extremities: no lower extremity edema bilateral Neurologic/Psychiatric: other (moves all limbs equally) Skin: No rash on exposed areas, No ulcerations on exposed areas Results/Procedures: Labs Laboratory Tests 09/16/22 05:05: Sodium Level 134L, Potassium Level 3.8, Chloride Level 102, Carbon Dioxide Level 21, Anion Gap 11, Blood Urea Nitrogen 25H, Creatinine 1.41H, Estimat Glomerular Filtration Rate 54, BUN/Creatinine Ratio 18, Glucose Level 111H, Calcium Level 8.8 Microbiology 09/13/22 Blood Culture - Preliminary, Resulted No growth Laboratory Tests 09/15/22 05:50 09/16/22 05:05 A/P: Assessment: NSVT on tele of 09-13-21 and 09-14-21 - Asymptomatic Acute on chronic respiratory failure - likely multi-factorial d/t pneumonia and acute on chronic systolic CHF and acute on chronic exacerbation of COPD Acute on chronic systolic CHF - clinically improved Hyponatremia - undetermined etiology - management per medical services Ischemic cm - with EF approx 15% per cardiac cath of 08-20-19 - Echocardiogram of June 2015 showed LVEF 35%. Distal septal and apical akinesis. Mild MR and TR. No evidence of significant valvular stenosis. PASP emmanuel adam 45mmHg. - Echo of 02/25/21: LVEF 30-35%, grade 1 gustafson dysfunction, anteroseptal and anteroapical akinesis, mod to sev MR, PASP 40-45 mmHg S/p ICD placement by Dr Lynn in 2007 for SCD prophylaxis - which has reached SUSANA on interrogation carried out on 04-05-2017. Pulse gen change on 04/07/17 - Device functioning normally on interrogation of 06/20/22 - Echocardiogram of 06-14-22 showed LVEF 25-30%. Severe MR. LA mod dilated Mild elevation in troponin, probably secondary to congestive heart failure, type II myocardial infarction. Coronary artery disease - cardiac catheterization was done in August 2019 with 90% stenosis with stented segment known to be Taxus 2.75 x 28 mm and Promus 2.25 x 12 mm to the proximal and mid LAD had balloon angioplasty with 3 mm balloon with excellent results. The proximal portion of the circumflex artery known to have proximal 2.25 x 16 mm stent that was patent the right coronary artery is dominant with mild diffuse disease. - Stress test was done in February 2021 with anterior apical and inferior lateral myocardial infarction without significant ischemia with ejection fraction 21% - Cardiac cath advised at time of appt on 06-20-2022 (he refused) History of tobaccoism, reported that he has stopped smoking about 2 weeks ago Probable COPD Abdominal aortic aneurysm CTA was done in June 2022 the aneurysm has increased in size compared to the prior CT a from 2014 it measured 4.3 cm. Hyperlipidemia, monitor lipids Peripheral arterial disease, claudication Patient has been refusing any further work-up. 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 Baseline abnormal EKG that has not changed History of noncompliant with medication - reports he has missed several doses of his medications at home over the last several days Carotid stenosis, Last ultrasound was done in June 2022 with right internal carotid artery 60 to 79%. The left internal carotid artery is chronically occluded. Plan: Complex management due to multiple comorbidities NSVT on tele - no further episodes after increase in bb. No evidence of ACS. ICD in place. Have discussed cath with him. He wishes to be managed conservatively Management of pneumonia is with the Med Svce HypoNa has improved after reduction in diuretics Resume lisinopril because renal function now stable. Use low dose because of low bp Monitor labs YAHIR JARRELL MD FACP [facility] Sep 16, 2022 14:55
[2022-09-16] MEDS: VANCOMYCIN 1250 MG/NS 250 ML IVPB IV SCH ×2 (15:51)
[2022-09-16] MEDS: RT-ALBUTEROL/IPRATROPIUM 3 ML (DUONEB) VIAL INH PRN (16:17)
[2022-09-16] MEDS: FAMOTIDINE 20 MG (PEPCID) TABLET PO SCH (20:40)
--- NOTE | 2022-09-16 21:19 | Progress Note ---
Subjective Subjective Date Seen by Provider: Sep 16, 2022 Time Seen by Provider: 08:15 Pt reports that he is continuing to feel better, he denies chest pain, shortness of breath continues. He reports that his appetite has improved. He denies any other concerns this morning. Review of Systems General: No Chills; Fatigue Pulmonary: Dyspnea, Cough Cardiovascular: Chest Pain (pleuritic); No: Palpitations Gastrointestinal: No: Nausea, Vomiting, Abdominal Pain All Other Systems Reviewed All Other Systems Reviewed: Yes Objective Exam Vital Signs Vital Signs Date Time Temp Pulse Resp B/P (MAP) Pulse Ox O2 Delivery O2 Flow Rate FiO2 09/16/22 19:21 36.7 90 20 133/62 (85) 90 Room Air 09/16/22 16:17 92 Room Air 0.00 09/16/22 15:49 37.6 90 16 106/61 (76) 91 Nasal Cannula 2.00 09/16/22 12:59 80 09/16/22 12:00 36.7 75 18 110/58 (75) 93 Room Air 09/16/22 11:14 95 Room Air 0.00 09/16/22 09:09 36.6 84 92 32 09/16/22 09:00 Nasal Cannula 4.00 09/16/22 08:00 36.6 84 18 97/56 (70) 96 Room Air 09/16/22 07:53 Nasal Cannula 3.00 09/16/22 07:49 92 Nasal Cannula 4.00 09/16/22 07:00 83 09/16/22 04:10 36.8 85 18 109/57 (74) 91 Nasal Cannula 3.00 09/16/22 03:20 95 Nasal Cannula 4.00 09/16/22 01:00 80 09/16/22 00:25 37.2 83 18 114/81 (92) 94 Nasal Cannula 4.00 I & O 09/16/22 07:00 Intake Total 1900 ml Output Total 400 ml Balance 1500 ml General Appearance: No Apparent Distress, WD/WN; No Anxious Eyes: Bilateral Eye Normal Inspection, Bilateral Eye PERRL, Bilateral Eye EOMI HEENT: PERRL/EOMI Neck: Full Range of Motion, Normal Inspection, Non Tender, Supple Respiratory: Chest Non Tender, No Accessory Muscle Use, No Respiratory Distress, Crackles (right lower lobe, improving), Wheezing (throughout bilateral upper lobes) Cardiovascular: Regular Rate, Rhythm, No Murmur, Normal Peripheral Pulses Gastrointestinal: Normal Bowel Sounds, Non Tender, Soft Back: Normal Inspection, No Vertebral Tenderness Extremity: Normal Capillary Refill, Normal Inspection, Normal Range of Motion, Non Tender, No Calf Tenderness, Pedal Edema (trace) Neurologic/Psychiatric: Alert, Oriented x3, Normal Mood/Affect Skin: Normal Color, Warm/Dry Lymphatic: No Adenopathy Results Lab Laboratory Tests 09/16/22 05:05: Sodium Level 134L, Potassium Level 3.8, Chloride Level 102, Carbon Dioxide Level 21, Anion Gap 11, Blood Urea Nitrogen 25H, Creatinine 1.41H, Estimat Glomerular Filtration Rate 54, BUN/Creatinine Ratio 18, Glucose Level 111H, Calcium Level 8.8 Microbiology 09/13/22 Blood Culture - Preliminary, Resulted No growth Assessment/Plan Assessment/Plan Admission Dx Acute respiratory failure Acute respiratory distress Pneumonia - hospital acquired Acute on Chronic Congestive heart failure Elevated BNP Hypertension Chronic Coronary artery disease Tobaccoism Chronic Alcohol intake Hyponatremia Acute on Chronic renal failure stage 2 Elevated CRP Anemia Assessment and Plan Acute respiratory failure Acute respiratory distress Pneumonia - hospital acquired Acute on Chronic Congestive heart failure Elevated BNP Hypertension Chronic Coronary artery disease Tobaccoism Chronic Alcohol intake Hyponatremia Acute on Chronic renal failure stage 2 Elevated CRP Anemia Acute respiratory failure with Acute respiratory distress due to Pneumonia - hospital acquired - repeat cxr again - anticipate improvement to continue on imaging with current treatment with IV antibiotics - iv vancomycin and zosyn. - mat protocol Acute on Chronic Congestive heart failure with Elevated BNP - consult to cardiology - monitor symptoms closely - lasix bid scheduled. - pt reports that he does not want to be fully coded, avoid intubation. Hypertension - monitor symptoms, continue with home regimen Chronic Coronary artery disease - consult to factory lay out engineer. Hyponatremia - improving - continue to repeat labs in morning. - restrict free water Acute on Chronic renal failure stage 2 - repeat labs, renal adjustment of medications Anemia - monitor h and h DVT prophyalxis with lovenox and scd's gi prophylaxis with ppi Admission Dx Acute respiratory failure Acute respiratory distress Pneumonia - hospital acquired Acute on Chronic Congestive heart failure Elevated BNP Hypertension Chronic Coronary artery disease Tobaccoism Chronic Alcohol intake Hyponatremia Acute on Chronic renal failure stage 2 Elevated CRP Anemia Clinical Quality Measures Admission Status Admission Dx Acute respiratory failure Acute respiratory distress Pneumonia - hospital acquired Acute on Chronic Congestive heart failure Elevated BNP Hypertension Chronic Coronary artery disease Tobaccoism Chronic Alcohol intake Hyponatremia Acute on Chronic renal failure stage 2 Elevated CRP Anemia STEVEN MONTERO MD Sep 16, 2022 21:19
[2022-09-16] MEDS: ENOXAPARIN 40 MG/0.4 ML (LOVENOX) SYR SC SCH (22:10)
[2022-09-17] VITALS (7 sets, daily range): BP systolic 105–122; BP diastolic 53–67
[2022-09-17] MEDS: PIPERACILLIN SODIUM/TAZOBACTAM 4.5 GM in NS (IVPB) 100 ML IV SCH ×3 (02:07→17:44)
[2022-09-17] MEDS: PANTOPRAZOLE 40 MG (PROTONIX) TAB PO SCH (06:08)
[2022-09-17 06:09] LABS: POTASSIUM 3.5 MMOL/L (3.6-5.0)
[2022-09-17 06:10] LABS: CALCIUM 8.7 MG/DL (8.5-10.1)
[2022-09-17 06:15] LABS: CREATININE SERUM 1.26 MG/DL (0.60-1.30)
[2022-09-17] MEDS: RT-ALBUTEROL/IPRATROPIUM 3 ML (DUONEB) VIAL INH SCH ×4 (07:51→19:23)
--- NOTE | 2022-09-17 08:18 | Progress Note ---
Subjective Subjective Date Seen by Provider: Sep 17, 2022 Time Seen by Provider: 08:17 Patient up and eating breakfast this morning. States he is feeling much better. He is not wearing any supplemental oxygen and is able to speak in full sentences without being short of breath. States he is comfortable going home after finishing his antibiotics tomorrow. Has a lingering cough with some sputum production, but states overall his congestion has improved. Denies any pain at this moment. Review of Systems Pulmonary: No Dyspnea; Cough Gastrointestinal: No: Nausea, Vomiting, Abdominal Pain All Other Systems Reviewed All Other Systems Reviewed: Yes Objective Exam Vital Signs Vital Signs Date Time Temp Pulse Resp B/P (MAP) Pulse Ox O2 Delivery O2 Flow Rate FiO2 09/17/22 07:51 91 Room Air 0.00 09/17/22 07:30 36.3 75 28 110/62 (78) 95 Nasal Cannula 2.00 09/17/22 07:00 72 09/17/22 03:39 36.6 80 16 112/59 (76) 92 Nasal Cannula 2.00 09/17/22 01:00 83 09/16/22 23:06 36.4 86 25 117/64 (81) 96 Nasal Cannula 3.00 09/16/22 22:31 92 Nasal Cannula 2.00 09/16/22 20:40 Nasal Cannula 3.00 09/16/22 19:21 36.7 90 20 133/62 (85) 90 Room Air 09/16/22 19:00 80 09/16/22 16:17 92 Room Air 0.00 09/16/22 15:49 37.6 90 16 106/61 (76) 91 Nasal Cannula 2.00 09/16/22 12:59 80 09/16/22 12:00 36.7 75 18 110/58 (75) 93 Room Air 09/16/22 11:14 95 Room Air 0.00 09/16/22 09:09 36.6 84 92 32 09/16/22 09:00 Nasal Cannula 4.00 I & O 09/17/22 07:00 Intake Total 2782.5 ml Output Total 950 ml Balance 1832.5 ml General Appearance: No Apparent Distress, WD/WN Eyes: Bilateral Eye Normal Inspection, Bilateral Eye PERRL, Bilateral Eye EOMI HEENT: PERRL/EOMI Neck: Full Range of Motion, Normal Inspection, Non Tender, Supple Respiratory: Chest Non Tender, No Accessory Muscle Use, No Respiratory Distress, Crackles (mild ) Cardiovascular: Regular Rate, Rhythm, No Murmur, Normal Peripheral Pulses Gastrointestinal: Normal Bowel Sounds, Non Tender, Soft Back: Normal Inspection, No Vertebral Tenderness Extremity: Normal Capillary Refill, Normal Inspection, Normal Range of Motion, Non Tender, No Calf Tenderness, Pedal Edema Neurologic/Psychiatric: Alert, Oriented x3, Normal Mood/Affect Skin: Normal Color, Warm/Dry Lymphatic: No Adenopathy Results Lab Laboratory Tests 09/17/22 05:35: Sodium Level 135, Potassium Level 3.5L, Chloride Level 103, Carbon Dioxide Level 19L, Anion Gap 13, Blood Urea Nitrogen 19H, Creatinine 1.26, Estimat Glomerular Filtration Rate 61, BUN/Creatinine Ratio 15, Glucose Level 118H, Calcium Level 8.7 Microbiology 09/13/22 Blood Culture - Preliminary, Resulted No growth Assessment/Plan Assessment/Plan Admission Dx Healthcare Associated Pneumonia Hypoxia Dyspnea Assessment and Plan Acute respiratory failure Acute respiratory distress Pneumonia - hospital acquired Acute on Chronic Congestive heart failure Elevated BNP Hypertension Chronic Coronary artery disease Tobaccoism Chronic Alcohol intake Hyponatremia Acute on Chronic renal failure stage 2 Elevated CRP Anemia Acute respiratory failure with Acute respiratory distress due to Pneumonia - hospital acquired - repeat cxr again - anticipate improvement to continue on imaging with current treatment with IV antibiotics - iv vancomycin and zosyn until 09/18/22 - mat protocol Acute on Chronic Congestive heart failure with Elevated BNP - consult to cardiology - monitor symptoms closely - lasix bid scheduled. - pt reports that he does not want to be fully coded, avoid intubation. Hypertension - monitor symptoms, continue with home regimen Chronic Coronary artery disease - consult to car sales representative. Hyponatremia - improving - continue to repeat labs in morning. - restrict free water Acute on Chronic renal failure stage 2 - repeat labs, renal adjustment of medications Anemia - monitor h and h DVT prophyalxis with lovenox and scd's gi prophylaxis with ppi Admission Dx Healthcare Associated Pneumonia Hypoxia Dyspnea Clinical Quality Measures Admission Status Admission Dx Healthcare Associated Pneumonia Hypoxia Dyspnea Supervisory-Addendum Brief Verification & Attestation Participated in pt care: history, MDM, physical Personally performed: exam, history, MDM, supervision of care Care discussed with: Medical Student Procedures: n/a Results interpretation: Verified all documentation Acute respiratory failure Acute respiratory distress Pneumonia - hospital acquired Acute on Chronic Congestive heart failure Elevated BNP Hypertension Chronic Coronary artery disease Tobaccoism Chronic Alcohol intake Hyponatremia Acute on Chronic renal failure stage 2 Elevated CRP Anemia Acute respiratory failure with Acute respiratory distress due to Pneumonia - hospital acquired - repeat cxr again today - improved on imaging - anticipate improvement to continue on imaging with current treatment with IV antibiotics - iv vancomycin and zosyn. - mat protocol Acute on Chronic Congestive heart failure with Elevated BNP - consult to cardiology - improving symptoms - monitor symptoms closely - lasix bid scheduled. - pt reports that he does not want to be fully coded, avoid intubation. Hypertension - monitor symptoms, continue with home regimen Chronic Coronary artery disease - consult to car sales representative. Hyponatremia - improving - continue to repeat labs in morning. - restrict free water Acute on Chronic renal failure stage 2 - improving - repeat labs, renal adjustment of medications Anemia - monitor h and h DVT prophyalxis with lovenox and scd's gi prophylaxis with ppi JAYLA BARRAGAN Sep 17, 2022 08:18 STEVEN MONTERO MD Sep 17, 2022 10:17
[2022-09-17] MEDS ORDERED: KCL 20 MEQ TAB (K-DUR) PO ONE (09:00)
[2022-09-17] MEDS: CLOPIDOGREL 75 MG (PLAVIX) TABLET PO SCH ×2 (09:58→20:16)
[2022-09-17] MEDS: ASPIRIN E.C. 81 MG (ECOTRIN) TAB PO SCH (09:58)
[2022-09-17] MEDS: meTOprolol TARTRATE 50 MG (LOPRESSOR) TAB PO SCH (09:58)
[2022-09-17] MEDS: lisINopril 5 MG (PRINIVIL) TABLET PO SCH (09:58)
[2022-09-17] MEDS: SPIRONOLACTONE 25 MG (ALDACTONE) TAB PO SCH ×2 (09:58→20:18)
[2022-09-17] MEDS: FUROSEMIDE 40 MG (LASIX) TAB PO SCH (09:59)
--- NOTE | 2022-09-17 10:09 | Diagnostic Imaging Report ---
EXAM: CHEST, PA/LAT (2 VIEW). INDICATION: Pneumonia. COMPARISON: 09/15/2022. FINDINGS: Multifocal airspace opacities in both lungs. AICD. Normal heart size and central pulmonary vascularity. No pleural effusion or pneumothorax. IMPRESSION: Stable bilateral airspace opacities, compatible with pneumonitis. Dictated by: Dictated on workstation # [id number]
--- NOTE | 2022-09-17 12:02 | Cardiology Progress Note ---
Progress Note-Cardiology Events since last exam Date Seen by Provider: Sep 17, 2022 Time Seen by Provider: 11:57 Events since last exam We are following him due to heart failure. His breathing continues to improve. He hopes to be able to go home tomorrow. He denies chest discomfort, palpitations, syncope, or peripheral edema. He has trouble swallowing pills and takes many of his medications twice a day so that he can cut them in half. Certain portions of this document may have been dictated utilizing voice recognition technology. Inherent to this technology, typographical and grammatical errors may exist. As much as I am diligent to identify and correct these mistakes, some errors may remain in the document. Vitals Last set of Vitals Signs Vital Signs 09/16/22 09/17/22 09:09 11:08 Temp 36.4 Pulse 80 Resp 26 B/P (MAP) 105/53 (70) Pulse Ox 95 O2 Delivery Nasal Cannula O2 Flow Rate 2.00 FiO2 32 Labs Labs Laboratory Tests 09/17/22 05:35 Exam Vital Signs Vital Signs Date Time Temp Pulse Resp B/P (MAP) Pulse Ox O2 Delivery O2 Flow Rate FiO2 09/17/22 11:08 36.4 80 26 105/53 (70) 95 Nasal Cannula 2.00 09/16/22 09:09 32 Physical Exam General: Alert. No acute distress. Eye: No xanthelasma. HENT: Normocephalic. Neck: Jugular venous pressure does not appear elevated. Respiratory: Lungs are clear to auscultation. Respirations are non-labored. Breath sounds are equal. Symmetrical chest wall expansion. Cardiovascular: Normal rate. Regular rhythm. No murmur. No gallop. No edema. Gastrointestinal: Soft. Normal bowel sounds. Skin: Warm. Dry. Neurologic: Alert and oriented to person, place, time. Cranial nerves 3-11 grossly intact. Psychiatric: Cooperative. Appropriate mood & affect. Labs Laboratory Tests Test 09/17/22 05:35 Range/Units Sodium Level 135 135-145 MMOL/L Potassium Level 3.5 L 3.6-5.0 MMOL/L Chloride Level 103 98-107 MMOL/L Carbon Dioxide Level 19 L 21-32 MMOL/L Anion Gap 13 5-14 MMOL/L Blood Urea Nitrogen 19 H 7-18 MG/DL Creatinine 1.26 0.60-1.30 MG/DL Estimat Glomerular Filtration Rate 61 BUN/Creatinine Ratio 15 Glucose Level 118 H 70-105 MG/DL Calcium Level 8.7 8.5-10.1 MG/DL Diagnosis/Problems Diagnosis/Problems (1) Acute on chronic HFrEF (heart failure with reduced ejection fraction) Assessment & Plan: Symptomatically improving. He has been on lisinopril and spironolactone as well as metoprolol tartrate. Metoprolol tartrate is not the usual guideline directed medical therapy but due to his difficulty swallowing pi lls, this may be his only choice. I have taken the liberty of changing this over to carvedilol twice a day to see if he could possibly swallow these pills. Carvedilol is guideline recommended for heart failure with reduced ejection fraction. (2) Ischemic cardiomyopathy Assessment & Plan: Continue guideline directed medical therapy as above. He has prophylactic defibrillator in place. (3) Coronary artery disease without angina pectoris Assessment & Plan: He is not having any angina but did have borderline elevation of the troponin levels although flat. Continue clopidogrel, beta- alexa and statin medication. (4) Elevated troponin Status: Acute Assessment & Plan: He may have suffered a type II non-ST elevation myocardial infarction due to the acute on chronic heart failure. His troponin levels are flat and he has not been having any angina. Continue clopidogrel, beta-alexa and statin medication as outlined above. (5) Primary hypertension Assessment & Plan: He has been normotensive on the current therapy which he takes at home. I will attempt to change Metroprolol tartrate to carvedilol as noted above. (6) Mixed hyperlipidemia Assessment & Plan: Continue atorvastatin. His LDL level is above 70. He may benefit from a higher dose of atorvastatin but I will leave this up to the discretion of his regular production support manager. (7) Cardiac defibrillator in situ Assessment & Plan: This is being followed in our outpatient device monitoring clinic. The device has been functioning normally. HARI NGUYEN JR, MD Sep 17, 2022 12:02
[2022-09-17] MEDS ORDERED: TROUGH ORDER-PHARMACY XX NR (14:00)
[2022-09-17] MEDS: VANCOMYCIN 1250 MG/NS 250 ML IVPB IV SCH ×2 (14:26)
[2022-09-17] MEDS: RT-ALBUTEROL/IPRATROPIUM 3 ML (DUONEB) VIAL INH PRN (16:46)
[2022-09-17] MEDS: FAMOTIDINE 20 MG (PEPCID) TABLET PO SCH (20:16)
[2022-09-17] MEDS: ENOXAPARIN 40 MG/0.4 ML (LOVENOX) SYR SC SCH (20:16)
[2022-09-18] MEDS: PIPERACILLIN SODIUM/TAZOBACTAM 4.5 GM in NS (IVPB) 100 ML IV SCH ×2 (01:35→08:31)
[2022-09-18 03:25] VITALS: BP 123/59
[2022-09-18] MEDS: PANTOPRAZOLE 40 MG (PROTONIX) TAB PO SCH (05:37)
[2022-09-18 07:35] VITALS: BP 125/66
[2022-09-18] MEDS: RT-ALBUTEROL/IPRATROPIUM 3 ML (DUONEB) VIAL INH SCH ×2 (07:42→11:26)
[2022-09-18] MEDS: lisINopril 5 MG (PRINIVIL) TABLET PO SCH (08:30)
[2022-09-18] MEDS: CLOPIDOGREL 75 MG (PLAVIX) TABLET PO SCH (08:30)
[2022-09-18] MEDS: ASPIRIN E.C. 81 MG (ECOTRIN) TAB PO SCH (08:30)
[2022-09-18] MEDS: FUROSEMIDE 40 MG (LASIX) TAB PO SCH (08:31)
[2022-09-18] MEDS: SPIRONOLACTONE 25 MG (ALDACTONE) TAB PO SCH (08:31)
[2022-09-18] MEDS ORDERED: VANCOMYCIN 750 MG/NS 250 ML IVPB IV SCH ×2 (10:00)
--- NOTE | 2022-09-18 10:33 | Discharge Summary ---
Diagnosis/Chief Complaint Date of Admission Sep 13, 2022 at 09:53 Date of Discharge Discharge Date: Sep 18, 2022 Discharge Time: 12:00 Admission Diagnosis Admission Diagnosis Acute respiratory failure Acute respiratory distress Pneumonia - hospital acquired Acute on Chronic Congestive heart failure COPD Elevated BNP Hypertension Chronic Coronary artery disease Tobaccoism Chronic Alcohol intake Hyponatremia Acute on Chronic renal failure stage 2 Elevated CRP Anemia Discharge Diagnosis Acute respiratory failure Acute respiratory distress Pneumonia - hospital acquired Acute on Chronic Congestive heart failure COPD Elevated BNP Hypertension Chronic Coronary artery disease Tobaccoism Chronic Alcohol intake Hyponatremia Acute on Chronic renal failure stage 2 Elevated CRP Anemia Reason Hospital Visit Jayme is a 72 y/o male who is known to me from clinic and previous hospitalization. He was admitted for influenza A pneumonia last week, was given appropriate treatment and sent home after a few days. He reports that since his discharge he became increasingly short of breath, was using his 's supplemental oxygen and continued to have more severity in his shortness of breath, thus his return to the hospital. He was found to have an elevated BNP, elevated troponin, and worsening pneumonia on CXR. he was subsequently admitted to the hospital. Discharge Summary Consultations cardiology Discharge Physical Examination Allergies: Coded Allergies: NKANo Known Allergies (Verified Allergy, Unknown, 07/15/07) Uncoded Allergies: NKDA (Allergy, Mild, 07/15/07) Vitals & I&Os Vital Signs Date Time Temp Pulse Resp B/P (MAP) Pulse Ox O2 Delivery O2 Flow Rate FiO2 09/18/22 11:39 36.3 77 28 105/63 (77) 96 Nasal Cannula 3.00 09/17/22 20:39 21 General Appearance: Alert, Oriented X3, Cooperative, No Acute Distress HEENT: Atraumatic, PERRLA, Mucous Memb Moist/[place] Respiratory: Other (faint crackles right and left base, but significantly improved with decrease/almost resolution of wheezing, rhonchi) Cardiovascular: Regular Rate Abdominal: Normal Bowel Sounds, Soft, No Tenderness Extremities: No Clubbing, No Cyanosis Skin: No Rashes, No Breakdown Neuro: Normal Speech, Cranial Nerves 3-12 NL Psych/Mental Status: Mental Status NL, Mood NL Hospital Course Was the Problem List Reviewed?: Yes Acute respiratory failure Acute respiratory distress Pneumonia - hospital acquired Acute on Chronic Congestive heart failure COPD Elevated BNP Hypertension Chronic Coronary artery disease Tobaccoism Chronic Alcohol intake Hyponatremia Acute on Chronic renal failure stage 2 Elevated CRP Anemia Acute respiratory failure with Acute respiratory distress due to Pneumonia - hospital acquired - repeat cxr again today - improved on imaging - anticipate improvement to continue on imaging with current treatment with IV antibiotics - iv vancomycin and zosyn. - mat protocol Acute on Chronic Congestive heart failure with Elevated BNP - consult to cardiology - improving symptoms - monitor symptoms closely - lasix bid scheduled. - pt reports that he does not want to be fully coded, avoid intubation. - COPD with hypoxia - pt was discharged with oxygen requirement of 2 liters at rest and 5 liters with exertion, orders written in computer for pt to have oxygen on DC. - 3 days of oral antibiotics sent out for patient to finish course of treatment Hypertension - monitor symptoms, continue with home regimen Chronic Coronary artery disease - consult to track patrol. - pt will follow up as an outpt on his cardiac problems with outpatient work-up planned on dc Hyponatremia - improving - continue to repeat labs in morning. - restrict free water Acute on Chronic renal failure stage 2 - improving - repeat labs, renal adjustment of medications Anemia - monitor h and h DVT prophyalxis with lovenox and scd's gi prophylaxis with ppi Discharge Condition at discharge improved Instructions to patient/family Please see electronic discharge instructions given to patient. Discharge Medications Reviewed and agree with Discharge Medication list on patient's Discharge Instruction sheet STEVEN MONTERO MD Sep 18, 2022 10:33
[2022-09-18] MEDS ORDERED: CARV6.252 PO (10:36)
[2022-09-18] MEDS ORDERED: AMOX-355 PO (10:36)
--- NOTE | 2022-09-18 10:40 | Discharge Inst-Simple/Standard ---
Discharge Inst-Standard Reconcile Patient Problems Problems Reviewed?: Yes Discharge Medications New, Converted or Re-Newed RX: Transmitted to Pharmacy Patient Instructions/Follow Up Plan of Care/Instructions/FU: Acute respiratory failure Acute respiratory distress Pneumonia - hospital acquired Acute on Chronic Congestive heart failure Elevated BNP Hypertension Chronic Coronary artery disease Tobaccoism Chronic Alcohol intake Hyponatremia Acute on Chronic renal failure stage 2 Elevated CRP Anemia Activity as Tolerated: Yes Discharge Diet: Low Sodium Diet, Low Fat/Low Cholesterol Health Concerns: copd, pneumonia Return to The Hospital For: any concern for worsening shortness of breath, or other lifethreatening illness or injury Other Inst to Patient wear oxygen at 2 liters continuously and 5 liters of oxygen with ambulation/walking/exercise or activity Medication List: Active Scripts Active Augmentin 500-125 Tablet (Amoxicillin/Potassium Clav) 500 Mg-125 Mg Tablet 1 Each PO TID Carvedilol 6.25 Mg Tablet 6.25 Mg PO BID Reported Ibuprofen 200 Mg Tablet 400 Mg PO Q8H PRN TAKES 2 (200MG) TABS Ventolin Hfa (Albuterol Sulfate) 90 Mcg Hfa.aer.ad 1 Puff PO Q6H PRN 1 PUFF = 90 MCG Famotidine 20 Mg Tablet 20 Mg PO BID Aspirin EC (Aspirin) 81 Mg Tablet.dr 81 Mg PO DAILY Potassium Chloride 10 Meq Tab.er.prt 5 Meq PO BID TAKES 1/2 OF (10MEQ) TABS Furosemide 80 Mg Tablet 40 Mg PO BID TAKES 1/2 OF (80MG) TAB Spironolactone 25 Mg Tablet 12.5 Mg PO BID Plavix (Clopidogrel Bisulfate) 75 Mg Tablet 37.5 Mg PO BID TAKES 1/2 OF (75MG) TAB Lisinopril 2.5 Mg Tablet 1.25 Mg PO BID Atorvastatin Calcium 40 Mg Tablet 20 Mg PO BID TAKES 1/2 OF (40MG) TAB Tylenol Extra Strength (Acetaminophen) 500 Mg Tablet 1,000 Mg PO Q6H PRN TAKES 2 (500MG) TABLETS Lab results: Laboratory Tests Test 09/17/22 14:24 Range/Units Vancomycin Level Trough 8.0 L 10.0-20.0 UG/ML My orders: Orders - STEVEN MONTERO MD Albuterol/Ipra Inhalation Soln (Duoneb I (09/18/22 07:00) Mat Initiate Protocol (1/7/23 20:42) Vancomycin Injection (Vancomycin Injecti (09/18/22 10:00) Attending Discharge Inpt/Inobs (09/18/22 10:34) STEVEN MONTERO MD Sep 18, 2022 10:39
[2022-09-18 11:39] VITALS: BP 105/63
--- NOTE | 2022-09-18 11:58 | Cardiology Progress Note ---
Progress Note-Cardiology Events since last exam Date Seen by Provider: Sep 18, 2022 Time Seen by Provider: 11:57 Events since last exam We are following him due to heart failure. He feels as though his breathing is back to his baseline and he wants to go home. He has mild, chronic ankle edema. He denies chest pain, palpitations, or syncope. Certain portions of this document may have been dictated utilizing voice recog nition technology. Inherent to this technology, typographical and grammatical errors may exist. As much as I am diligent to identify and correct these mistakes, some errors may remain in the document. Vitals Last set of Vitals Signs Vital Signs 09/17/22 09/18/22 20:39 11:39 Temp 36.3 Pulse 77 Resp 28 B/P (MAP) 105/63 (77) Pulse Ox 96 O2 Delivery Nasal Cannula O2 Flow Rate 3.00 FiO2 21 Exam Vital Signs Vital Signs Date Time Temp Pulse Resp B/P (MAP) Pulse Ox O2 Delivery O2 Flow Rate FiO2 09/18/22 11:39 36.3 77 28 105/63 (77) 96 Nasal Cannula 3.00 09/17/22 20:39 21 Physical Exam General: Alert. No acute distress. He is wearing oxygen by nasal cannula. Eye: No xanthelasma. HENT: Normocephalic. Neck: Jugular venous pressure does not appear elevated. Respiratory: Lungs have decreased breath sounds and some scattered wheezes bilaterally. Respirations are non-labored. Breath sounds are equal. Symmetrical chest wall expansion. Cardiovascular: Normal rate. Regular rhythm. Distant S1/S2. No murmur. No gallop. Trace bilateral pretibial edema. Gastrointestinal: Soft. Normal bowel sounds. Skin: Warm. Dry. Neurologic: Alert and oriented to person, place, time. Cranial nerves 3-11 grossly intact. Psychiatric: Cooperative. Appropriate mood & affect. Labs Laboratory Tests Test 09/17/22 14:24 Range/Units Vancomycin Level Trough 8.0 L 10.0-20.0 UG/ML Diagnosis/Problems Diagnosis/Problems (1) Acute on chronic HFrEF (heart failure with reduced ejection fraction) Assessment & Plan: Symptomatically improved. He had been on lisinopril and spironolactone as well as metoprolol tartrate. Metoprolol tartrate is not the usual guideline directed medical therapy but due to his difficulty swallowing pills, this may be his only choice. I changed his metoprolol tartrate over to carvedilol and Lasix swallowing these pills with just slight difficulty. Carvedilol is guideline recommended for heart failure with reduced ejection fraction. From a cardiac standpoint, it would not be unreasonable to discharge him to home. He already has a follow-up appointment with his regular ampoule filler, Dr. Painting. (2) Ischemic cardiomyopathy Assessment & Plan: Continue guideline directed medical therapy as above. He has a prophylactic defibrillator in place. (3) Coronary artery disease without angina pectoris Assessment & Plan: He is not having any angina but did have borderline elevation of the troponin levels although flat. This may have been a type II NSTEMI due to supply/demand mismatch from the acute on chronic heart. He should continue clopidogrel, beta-alexa and statin medication. (4) Elevated troponin Status: Acute Assessment & Plan: He may have suffered a type II non-ST elevation myocardial infarction due to the acute on chronic heart failure. His troponin levels are flat and he has not been having any angina. Continue clopidogrel, beta-alexa and statin medication as outlined above. (5) Primary hypertension Assessment & Plan: He has been normotensive on the current therapy which he takes at home. I did change Metroprolol tartrate to carvedilol as noted above. (6) Mixed hyperlipidemia Assessment & Plan: Continue atorvastatin. His LDL level is above 70. He may benefit from a higher dose of atorvastatin but I will leave this up to the discretion of his regular ampoule filler. Due to his chronic difficulty swallowing pills, which is atorvastatin may be difficult for him to take. As a days, he has been cutting the atorvastatin and and taking this twice a day. (7) Cardiac defibrillator in situ Assessment & Plan: This is being followed in our outpatient device monitoring clinic. The device has been functioning normally. Problem Qualifiers (1) Coronary artery disease without angina pectoris: Coronary Disease-Associated Artery/Lesion type: [place] artery [place] vs. transplanted heart: [place] heart Qualified Codes: I25.10 - Atherosclerotic heart disease of [place] coronary artery without angina pectoris HARI NGUYEN JR, MD Sep 18, 2022 11:58
== END 2022-09-18 13:19 | disposition home or self-care (01) | DRG 193 ==
LOC: EDUNIT# 07:46 → ER 07:48 → 4TH 09:53 → EDPENDDISTM 09-18 12:00
PROVIDERS: ADMIT Family Medicine; ATTEND Family Medicine
DX: J18.9 Pneumonia, unspecified organism (principal); I21.A1 Myocardial infarction type 2; J96.21 Acute and chronic respiratory failure with hypoxia; I50.23 Acute on chronic systolic (congestive) heart failure; E87.1 Hypo-osmolality and hyponatremia; J44.0 Chronic obstructive pulmonary disease with (acute) lower respiratory infection; J44.1 Chronic obstructive pulmonary disease with (acute) exacerbation; I13.0 Hypertensive heart and chronic kidney disease with heart failure and stage 1 through stage 4 chronic kidney disease, or unspecified chronic kidney disease; I47.20 Ventricular tachycardia, unspecified; I34.0 Nonrheumatic mitral (valve) insufficiency; N18.2 Chronic kidney disease, stage 2 (mild); I25.5 Ischemic cardiomyopathy; I48.91 Unspecified atrial fibrillation; I49.3 Ventricular premature depolarization; I25.10 Atherosclerotic heart disease of native coronary artery without angina pectoris; I73.9 Peripheral vascular disease, unspecified; D64.9 Anemia, unspecified; M19.91 Primary osteoarthritis, unspecified site; I71.40 Abdominal aortic aneurysm, without rupture, unspecified; E78.2 Mixed hyperlipidemia; I65.23 Occlusion and stenosis of bilateral carotid arteries; H91.90 Unspecified hearing loss, unspecified ear; I25.2 Old myocardial infarction; Z87.891 Personal history of nicotine dependence; Z20.822 Contact with and (suspected) exposure to COVID-19; Z95.5 Presence of coronary angioplasty implant and graft; Z95.810 Presence of automatic (implantable) cardiac defibrillator; Z79.82 Long term (current) use of aspirin; Z79.02 Long term (current) use of antithrombotics/antiplatelets; Z82.49 Family history of ischemic heart disease and other diseases of the circulatory system
CPT/HCPCS: 36415; 71045; 71046; 80048; 80053; 80202; 83735; 83880; 84443; 84484; 85025; 85027; 86141; 87040; 87636; 93005; 94640; 94664; 94760; 94761; 96374